=== PATIENT | female | born 1935 | race Caucasian/White ===

== ENCOUNTER 2017-07-13 10:15 | Inpatient (IN) | payer MEDICARE ==
[~2017-07-13] VITALS: Ht 157.5 cm; Wt 68.0 kg
--- NOTE | ~2017-07-13 | PN ---
PATIENT:ESTELA DODD MEDICAL RECORD: [id number] LOCATION:[facility] ADMISSION DATE: 07/13/17 PROGRESS NOTE DATE OF SERVICE: 07/24/2017 SUBJECTIVE: No new complaint. OBJECTIVE: The patient has been more agitated and combative in the last 24 hours. Her combativeness has been mild in comparison to her admission status, but nonetheless does represent moderate change. PHYSICAL EXAMINATION: On exam, mood is rather irritable. Affect is brittle. Speech will very terse. Content of thought is negative for overt psychosis. Sensorium shows no change. ASSESSMENT: No change in diagnosis. PLAN: 1. We will change Risperdal to 1.5 mg at bedtime. 2. Maintain other medications. 3. Continue supportive therapy. TRANSINT:[id number] Voice Confirmation ID: [id number] DOCUMENT ID: [id number] VINCE HARMON III, MD at 0800 CC: [id number] DICTATION DATE: 07/24/17 1106 REGISTERED MIDWIFE: 07/24/17 1116 ADM IN [place] [address] [place] [address]
--- NOTE | ~2017-07-13 | PN ---
PATIENT:ESTELA DODD MEDICAL RECORD: [id number] LOCATION:[facility] ADMISSION DATE: 07/13/17 PROGRESS NOTE DATE OF SERVICE: 07/18/2017 SUBJECTIVE: No new complaint. OBJECTIVE: The patient is slightly calmer. She was able to be given her Risperdal last night, although she refuses it in the mornings. On exam, mood remains rather irritable. Affect is brittle. Speech tends to be terse. Content of thought continues to show nonspecific paranoid ideation. Sensorium is unchanged. ASSESSMENT: No change in diagnosis. PLAN: 1. Maintain current medications with the exception of changing Risperdal to 1 mg at bedtime only. 2. Continue supportive therapy. TRANSINT:[id number] Voice Confirmation ID: [id number] DOCUMENT ID: [id number] VINCE HARMON III, MD at 1025 CC: [id number] DICTATION DATE: 07/18/17 1134 VETERINARY NURSE: 07/18/17 1230 ADM IN [place] [id number] [place] [id number]
--- NOTE | ~2017-07-13 | PN ---
PATIENT:ESTELA DODD MEDICAL RECORD: [id number] LOCATION:[facility] ADMISSION DATE: 07/13/17 PROGRESS NOTE DATE OF SERVICE: 07/29/2017 SUBJECTIVE: No new complaint. OBJECTIVE: The patient has continued to be somewhat difficult to manage as she is rather oppositional, especially early in the mornings. However, she is taking her medication as prescribed. PHYSICAL EXAMINATION: On exam, mood is irritable. Affect is brittle. Speech is tangential. Content of thought focuses on somatic concerns. Sensorium is unchanged. ASSESSMENT: No change in diagnosis. PLAN: 1. Maintain current medications. 2. Continue supportive therapy. TRANSINT:[id number] Voice Confirmation ID: [id number] DOCUMENT ID: [id number] VINCE HARMON III, MD at 1108 CC: [id number] DICTATION DATE: 07/29/17 1038 TOPOLOGY PROFESSOR: 07/29/17 1056 ADM IN [place] [address] [place] [address]
--- NOTE | ~2017-07-13 | PN ---
PATIENT:ESTELA DODD MEDICAL RECORD: [id number] LOCATION:[facility] ADMISSION DATE: 07/13/17 PROGRESS NOTE DATE OF SERVICE: 08/04/2017 SUBJECTIVE: The patient's case was discussed with staff. She has no new complaint. OBJECTIVE: The patient denies intent to harm herself or others. She is impaired cognitively, but in good behavioral control. ASSESSMENT: No change in diagnoses. PLAN: Supportive and educational interventions were made. Long-term prognosis is guarded. I would anticipate the patient can be transitioned out of the hospital soon if this level of improvement is maintained. TRANSINT:[id number] Voice Confirmation ID: [id number] DOCUMENT ID: [id number] FELICIA JOE MD at 0944 CC: [id number] DICTATION DATE: 08/04/17 1207 DROP HAMMER MECHANIC: 08/04/17 1218 DIS IN 08/04/17 [place] [id number] [place] [address]
--- NOTE | ~2017-07-13 | PN ---
PATIENT:ESTELA DODD MEDICAL RECORD: [id number] LOCATION:[facility] ADMISSION DATE: 07/13/17 PROGRESS NOTE DATE OF SERVICE: 07/27/2017 SUBJECTIVE: No new complaint. OBJECTIVE: The patient continues to be rather cantankerous and difficult to redirect sometimes. Aside from this, no significant change. On exam, mood is somewhat irritable. Affect is brittle. Speech is tangential. Content of thought is negative for overt psychosis. Sensorium unchanged. ASSESSMENT: No change in diagnoses. PLAN: 1. Continue current medications. 2. Continue supportive therapy. TRANSINT:[id number] Voice Confirmation ID: [id number] DOCUMENT ID: [id number] VINCE HARMON III, MD at 1201 CC: [id number] DICTATION DATE: 07/27/17 1136 COPYRIGHT CLERK: 07/27/17 1320 ADM IN [place] [id number] [place] [id number]
--- NOTE | ~2017-07-13 | PN ---
PATIENT:ESTELA DODD MEDICAL RECORD: [id number] LOCATION:[facility] ADMISSION DATE: 07/13/17 PROGRESS NOTE DATE OF SERVICE: 07/25/2017 SUBJECTIVE: No new complaint. OBJECTIVE: The patient became extremely agitated last night and required p.r.n. Ativan. She is drowsy this morning. Risperdal had been increased to 1-1/2 mg at bedtime last night, but the patient nonetheless was quite agitated. On exam today, mood is euthymic. Affect is constricted. Speech is minimal. Content of thought shows nonspecific paranoid ideation. Sensorium shows no change. ASSESSMENT: No change in diagnosis. PLAN: 1. For the time being, we will continue current medication regimen. 2. Continue supportive therapy. TRANSINT:[id number] Voice Confirmation ID: [id number] DOCUMENT ID: [id number] VINCE HARMON III, MD at 0800 CC: [id number] DICTATION DATE: 07/25/17 1011 HEAVY EQUIPMENT OPERATOR/PAVER: 07/25/17 1045 ADM IN [place] [address] [place] [address]
--- NOTE | ~2017-07-13 | PN ---
PATIENT:ESTELA DODD MEDICAL RECORD: [id number] LOCATION:[facility] ADMISSION DATE: 07/13/17 PROGRESS NOTE DATE OF SERVICE: 07/19/2017 SUBJECTIVE: No new complaint. OBJECTIVE: The patient did take her Risperdal last night. She took her morning medications as well. She is more compliant and overall calmer. On exam, mood for the most part is euthymic. Affect is reserved. Speech is rather terse. Content of thought focuses on somatic complaints. Sensorium shows no change. ASSESSMENT: No change in diagnosis. PLAN: 1. Continue current medications. 2. Continue supportive therapy. TRANSINT:[id number] Voice Confirmation ID: [id number] DOCUMENT ID: [id number] VINCE HARMON III, MD at 1029 CC: [id number] DICTATION DATE: 07/19/17 1043 MARKETING AUTOMATION MANAGER: 07/19/17 1255 ADM IN [place] [id number] [place] [id number]
--- NOTE | ~2017-07-13 | PN ---
PATIENT:ESTELA DODD MEDICAL RECORD: [id number] LOCATION:[facility] ADMISSION DATE: 07/13/17 PROGRESS NOTE DATE OF SERVICE: 07/20/2017 SUBJECTIVE: No new complaint. OBJECTIVE: The patient is continuing to improve gradually. No further outbursts of agitation. She is variably cooperative in terms of taking medication. On exam, mood euthymic. Affect constricted. Speech quite terse. Content of thought focuses only on somatic concerns. Sensorium shows no change. ASSESSMENT: No change in diagnosis. PLAN: 1. Continue present medications. 2. Continue supportive therapy. TRANSINT:[id number] Voice Confirmation ID: [id number] DOCUMENT ID: [id number] VINCE HARMON III, MD at 0800 CC: [id number] DICTATION DATE: 07/20/17 1052 RAIL GANG SUPERVISOR: 07/20/17 1149 ADM IN [facility] [address] [place] [address]
--- NOTE | ~2017-07-13 | PN ---
PATIENT:ESTELA DODD MEDICAL RECORD: [id number] LOCATION:[facility] ADMISSION DATE: 07/13/17 PROGRESS NOTE DATE OF SERVICE: 07/31/2017 SUBJECTIVE: No new complaint. OBJECTIVE: The patient continues to have episodes of agitation and yelling at night. During the day; however, her behavior has been overall better. She tends to isolate herself from the rest of the people in the group, but is fairly cooperative otherwise. On exam, mood is irritable. Affect is brittle. Speech very terse. Content of thought is negative for overt psychosis. Sensorium is unchanged. ASSESSMENT: No change in diagnosis. PLAN: 1. We will change Risperdal 1 mg at 1800. 2. Continue other current medications. 3. Continue supportive therapy. TRANSINT:[id number] Voice Confirmation ID: [id number] DOCUMENT ID: [id number] VINCE HARMON III, MD at 1019 CC: [id number] DICTATION DATE: 07/31/17 1146 PREP PERSON: 07/31/17 [address] [facility] [address] [place] [id number]
--- NOTE | ~2017-07-13 | PN ---
PATIENT:ESTELA DODD MEDICAL RECORD: [id number] LOCATION:[facility] ADMISSION DATE: 07/13/17 PROGRESS NOTE DATE OF SERVICE: 07/26/2017 SUBJECTIVE: No new complaint. OBJECTIVE: The patient has continued to be sleepy. She did not require p.r.n. yesterday. On exam, mood is euthymic. Affect very constricted. Speech is quite terse. Content of thought focuses only on somatic concerns. Sensorium is unchanged. ASSESSMENT: No change in diagnosis. PLAN: 1. We will reduce h.s. Risperdal to 0.5 mg. 2. Continue other medications and supportive therapy. TRANSINT:[id number] Voice Confirmation ID: [id number] DOCUMENT ID: [id number] VINCE HARMON III, MD at 0504 CC: [id number] DICTATION DATE: 07/26/17 0830 TROLLEY OPERATOR: 07/26/17 1314 ADM IN [place] [address] [place] [address]
--- NOTE | ~2017-07-13 | PN ---
PATIENT:ESTELA DODD MEDICAL RECORD: [id number] LOCATION:[facility] ADMISSION DATE: 07/13/17 PROGRESS NOTE DATE OF SERVICE: 07/23/2017 SUBJECTIVE: The patient's case was discussed with staff. She has no new complaint. OBJECTIVE: The patient is severely impaired cognitively, but has not been aggressive. She is sleeping well. She is not eating very well. Her prognosis is guarded. TRANSINT:[id number] Voice Confirmation ID: [id number] DOCUMENT ID: [id number] FELICIA JOE MD at 1412 CC: [id number] DICTATION DATE: 07/23/17 1057 FOOD AND BEVERAGE INTERN: 07/23/17 1335 ADM IN [place] [address] [place] [address]
--- NOTE | ~2017-07-13 | PN ---
PATIENT:ESTELA DODD MEDICAL RECORD: [id number] LOCATION:[facility] ADMISSION DATE: 07/13/17 PROGRESS NOTE DATE OF SERVICE: 07/21/2017 SUBJECTIVE: The patient's case was discussed with staff. She has no new complaint. OBJECTIVE: The patient is in good behavioral control with limited insight about her condition. She does tolerate her medications well. ASSESSMENT: No change in diagnoses. PLAN: Brief supportive and educational interventions were made. Halfway prognosis is guarded. TRANSINT:[id number] Voice Confirmation ID: [id number] DOCUMENT ID: [id number] FELICIA JOE MD at 1034 CC: [id number] DICTATION DATE: 07/21/17 1231 TRIM CARPENTER: 07/21/17 1239 ADM IN [place] [id number]
--- NOTE | ~2017-07-13 | PN ---
PATIENT:ESTELA DODD MEDICAL RECORD: [id number] LOCATION:[facility] ADMISSION DATE: 07/13/17 PROGRESS NOTE DATE OF SERVICE: 07/17/2017 SUBJECTIVE: No new complaint. OBJECTIVE: The patient continues to be noncompliant. She refuses most medication. She tends to be exit seeking. On exam, mood is irritable. Affect is brittle. Speech is quite terse. Content of thought focuses only on somatic concerns. Sensorium shows no change. ASSESSMENT: No change in diagnosis. PLAN: 1. Continue present medications. 2. Continue supportive therapy. TRANSINT:[id number] Voice Confirmation ID: [id number] DOCUMENT ID: [id number] VINCE HARMON III, MD at 1049 CC: [id number] DICTATION DATE: 07/17/17 1106 CLINICAL SERVICES DIRECTOR: 07/17/17 1207 ADM IN [place] [id number] [place] [id number]
--- NOTE | ~2017-07-13 | PN ---
PATIENT:ESTELA DODD MEDICAL RECORD: [id number] LOCATION:[facility] ADMISSION DATE: 07/13/17 PROGRESS NOTE DATE OF SERVICE: 07/28/2017 SUBJECTIVE: No new complaint. OBJECTIVE: Staff report the patient has not been aggressive. Over the last 24 hours, she is taking her medications as prescribed. She has a baseline irritability that seems to be consistent with her personality. On exam, mood is euthymic. Affect is very constricted. Speech is quite terse. Content of thought is negative for overt psychosis. Sensorium shows no change. ASSESSMENT: No change in diagnosis. PLAN: 1. Continue all current medications. 2. Continue supportive therapy. TRANSINT:[id number] Voice Confirmation ID: [id number] DOCUMENT ID: [id number] VINCE HARMON III, MD at 2107 CC: [id number] DICTATION DATE: 07/28/17 1156 SECURITY SYSTEM TECHNICIAN: 07/28/17 1247 ADM IN [place] [address] [place] [id number]
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
--- NOTE | ~2017-07-13 | PN ---
PATIENT:ESTELA DODD MEDICAL RECORD: [id number] LOCATION:[facility] ADMISSION DATE: 07/13/17 PROGRESS NOTE DATE OF SERVICE: 08/01/2017 SUBJECTIVE: No new verbal complaint. OBJECTIVE: The patient did receive her Risperdal early yesterday as ordered. She was compliant in taking medication, but still was rather restless at night; however, she did not require p.r.n. On exam, mood is slightly irritable. Affect is brittle. Speech is terse. Content of thought focuses on somatic complaints. Sensorium does not show change. ASSESSMENT: No change in diagnosis. PLAN: 1. Maintain current medications. 2. Continue supportive therapy. TRANSINT:[id number] Voice Confirmation ID: [id number] DOCUMENT ID: [id number] VINCE HARMON III, MD at 1011 CC: [id number] DICTATION DATE: 08/01/17 1041 REAL ESTATE PROCESSOR: 08/01/17 1130 ADM IN [place] [id number] [place] [address]
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
--- NOTE | ~2017-07-13 | PN ---
PATIENT:ESTELA DODD MEDICAL RECORD: [id number] LOCATION:[facility] ADMISSION DATE: 07/13/17 PROGRESS NOTE DATE OF SERVICE: 07/22/2017 SUBJECTIVE: The patient's case was discussed with staff. She has no new complaint. OBJECTIVE: The patient is in good behavioral control. She has been verbally and physically aggressive in the past, but not today. ASSESSMENT: No change in diagnoses. PLAN: The patient on the whole has shown significant improvement. I think her long-term prognosis is guarded. If this level of improvement can be maintained, I would anticipate she could be transitioned out of the hospital soon. TRANSINT:[id number] Voice Confirmation ID: [id number] DOCUMENT ID: [id number] FELICIA JOE MD at 1928 CC: [id number] DICTATION DATE: 07/22/17 1041 DOOR TO DOOR FUNDRAISING COLLECTOR: 07/22/17 1140 ADM IN [place] [address] [place] [address]
--- NOTE | ~2017-07-13 | PN ---
PATIENT:ESTELA DODD MEDICAL RECORD: [id number] LOCATION:[facility] ADMISSION DATE: 07/13/17 PROGRESS NOTE DATE OF SERVICE: 08/02/2017 SUBJECTIVE: No new complaint noted. OBJECTIVE: The patient is withdrawn, but cooperative. She is taking her medication as prescribed. She is somewhat resistant to some activities of daily living, but overall shows good improvement. On exam, mood is euthymic. Affect very constricted. Speech is terse. Content of thought focuses only on somatic concerns. Sensorium shows no change. ASSESSMENT: No change in diagnosis. PLAN: 1. Continue current medications. 2. Continue supportive therapy. TRANSINT:[id number] Voice Confirmation ID: [id number] DOCUMENT ID: [id number] VINCE HARMON III, MD at 1101 CC: [id number] DICTATION DATE: 08/02/17 1059 ASSEMBLY DEPARTMENT SUPERVISOR: 08/02/17 1146 ADM IN [place] [address] [place] [address]
[~2017-07-13 10:15] MED LIST: ESTRACE 0.5 MG0.5 MG PO; HYDROCODONE-APA1 TAB PO; KEFLEX500 MG PO; LASIX20 MG PO; MULTI-DAY VITAM1 TAB PO; PRAVACHOL40 MG PO; PRINIVIL20 MG PO; SYNTHROID112 MCG PO; ZANAFLEX4 MG PO; ZESTORETIC 20/21 TAB PO; ZOLOFT50 MG PO
[2017-07-13] MEDS ORDERED: ARICEPT10 MG PO (13:28)
[2017-07-13] MEDS ORDERED: NORVASC10 MG PO (13:29)
[2017-07-13] MEDS ORDERED: GLUCOSAMINE & C1 CAP PO (13:31)
[2017-07-13] MEDS ORDERED: NATURAL SENNA8.6 MG PO (16:44)
[2017-07-13] MEDS ORDERED: CALCIUM 500 + D1 TAB PO (16:46)
[2017-07-13] MEDS ORDERED: ATARAX 25 MG TA25 MG PO (16:48)
[2017-07-13] MEDS ORDERED: ATIVAN0.5 MG PO (16:49)
[2017-07-13] MEDS ORDERED: LAC-HYDRIN 5226 ML TOPICAL (16:51)
[2017-07-13 18:28] VITALS: BP 123/71; BMI 25.8
[2017-07-13 19:37] VITALS: BP 116/75
[2017-07-14 01:37] VITALS: BMI 25.8
[2017-07-14 06:26] LABS: HEMATOCRIT 36.4 % (36.0-48.0); HEMOGLOBIN 11.7 g/dL (12-16); MCH 27.1 pg (26.0-34.0); MCHC 32.1 g/dL (31.0-37.0); MCV 84.3 fL (80.0-100.0); MEAN PLATELET VOLUME 8.3 fL (7.4-10.4); PLATELET COUNT 251 10x3/uL (130-400); RBC 4.32 10x6/uL (4.00-5.40); WBC 3.9 10x3/uL (4.8-10.8)
[2017-07-14 06:31] LABS: HEMOGLOBIN A1C 6.1 % (4.8-6.0)
[2017-07-14 06:55] LABS: ALBUMIN 2.8 g/dL (3.4-5.0); ANION GAP 9.3 mmol/L (8-16); BILIRUBIN - TOTAL 0.2 mg/dL (0.2-1.3); CALCIUM 8.7 mg/dL (8.5-10.1); CARBON DIOXIDE 30.5 mmol/L (21.0-32.0); CHOL - HDL RATIO 2.8 ratio (2.3-4.1); CREATININE - SERUM 0.8 mg/dL (0.6-1.3); LDL-HDL RATIO 1.5 ratio (1.5-3.5); POTASSIUM - SERUM 3.8 mmol/L (3.5-5.1); PROTEIN - SERUM 6.8 g/dL (6.4-8.2); THYROID STIMULATING HORMONE 2.9 uIU/mL (0.36-3.74)
[2017-07-14 07:05] LABS: BASOPHILS 1 % (0-2); LYMPHOCYTES 72 % (15-50); MONOCYTES 7 % (2-11); NEUTROPHILS 20 % (40-80); PLATELET ESTIMATE NORMAL
[2017-07-14 09:44] VITALS: BP 161/80
[2017-07-14 12:47] VITALS: Ht 157.5 cm; Wt 68.0 kg
[2017-07-14 19:30] VITALS: BP 131/79
[2017-07-15 05:13] LABS: RAPID PLASMA REAGIN Non Reactive (Non Reactive)
[2017-07-15 07:00] VITALS: BP 136/70
[2017-07-15 14:21] LABS: FOLATE (FOLIC ACID) - SERUM 5.6 ng/mL (>3.0)
[2017-07-15 19:30] VITALS: BP 110/86
[2017-07-16 07:00] VITALS: BP 122/63
[2017-07-16 08:11] LABS: APPEARANCE CLEAR (CLEAR); BILIRUBIN NEGATIVE (NEGATIVE); COLOR YELLOW (YELLOW); GLUCOSE NEGATIVE (NEGATIVE); KETONE NEGATIVE (NEGATIVE); NITRITE NEGATIVE (NEGATIVE); PROTEIN NEGATIVE (NEGATIVE); SPECIFIC GRAVITY 1.015 (1.005-1.020); UROBILINOGEN NORMAL (NORMAL)
[2017-07-16 19:30] VITALS: BP 111/89
[2017-07-17 06:07] LABS: VITAMIN D 25 HYDROXY 45.8 ng/mL (30.0-100.0)
[2017-07-17 07:00] VITALS: BP 142/83
[2017-07-17 19:34] VITALS: BP 126/83
[2017-07-18 07:00] VITALS: BP 128/77
[2017-07-18 20:10] VITALS: BP 149/68
[2017-07-19 09:36] VITALS: BP 122/50
[2017-07-19 19:19] VITALS: BP 119/70; BP 135/42; BP 19/70
[2017-07-20 08:11] VITALS: BP 117/65
[2017-07-20 19:30] VITALS: BP 129/78
[2017-07-21 11:12] VITALS: BP 120/58
[2017-07-21 19:54] VITALS: BP 121/71
[2017-07-22 11:52] VITALS: BP 122/76
[2017-07-22 20:27] VITALS: BP 146/75
[2017-07-23 07:00] VITALS: BP 128/72
[2017-07-23 20:07] VITALS: BP 114/52
[2017-07-24 07:00] VITALS: BP 106/47
[2017-07-24 19:30] VITALS: BP 114/65
[2017-07-25 07:00] VITALS: BP 128/68
[2017-07-26 10:30] VITALS: BP 109/65
[2017-07-26 19:30] VITALS: BP 142/73
[2017-07-27 09:47] VITALS: BP 120/76
[2017-07-27 12:37] VITALS: BP 120/76
[2017-07-27 19:59] VITALS: BP 120/76
[2017-07-28 08:30] VITALS: BP 124/062
[2017-07-29 07:00] VITALS: BP 131/63
[2017-07-29 22:30] VITALS: BP 122/70
[2017-07-30 08:18] VITALS: BP 130/072
[2017-07-30 19:30] VITALS: BP 126/78
[2017-07-31 08:00] VITALS: BP 135/073
[2017-07-31 20:29] VITALS: BP 142/72
[2017-08-01 07:57] VITALS: BP 124/49
[2017-08-01 20:59] VITALS: BP 141/65
[2017-08-02 09:44] VITALS: BP 122/68
[2017-08-02] MEDS ORDERED: RISPERDAL SOL1 MG/ML PO (10:48)
[2017-08-02] MEDS ORDERED: VITAMIN B-121000 MCG PO (10:49)
[2017-08-02 19:30] VITALS: BP 135/73
[2017-08-03 08:00] VITALS: BP 127/71
[2017-08-03 21:29] VITALS: BP 150/82
[2017-08-04 09:31] VITALS: BP 127/62
== END 2017-08-04 11:29 | DRG 57 ==
LOC: D.PSYCH 10:15
PROVIDERS: Family Medicine; Psychiatry & Neurology Psychiatry
DX: G30.9 Alzheimer's disease, unspecified (principal); F02.81 Dementia in other diseases classified elsewhere, unspecified severity, with behavioral disturbance; E78.00 Pure hypercholesterolemia, unspecified; E03.9 Hypothyroidism, unspecified; I10 Essential (primary) hypertension; D64.9 Anemia, unspecified; M81.0 Age-related osteoporosis without current pathological fracture; E78.5 Hyperlipidemia, unspecified; Z87.891 Personal history of nicotine dependence; K58.1 Irritable bowel syndrome with constipation; I73.00 Raynaud's syndrome without gangrene; M19.90 Unspecified osteoarthritis, unspecified site; E53.8 Deficiency of other specified B group vitamins

== ENCOUNTER 2017-11-03 20:43 | Inpatient (IN) | payer MEDICARE ==
[~2017-11-03] VITALS: Ht 165.1 cm; Wt 60.8 kg
--- NOTE | ~2017-11-03 | EC ---
PATIENT:ESTELA DODD DATE OF SERVICE: 11/04/17 SEX: F MEDICAL RECORD: [id number] DATE OF : 37 LOCATION:D.M2 D.210 AGE OF PATIENT: 82 ADMISSION DATE: 11/04/17 REFERRING PHYSICIAN: INTERPRETING PHYSICIAN: SAEED GREER MD ECHOCARDIOGRAM REPORT ECHO CHARGES 4 ECHO COMPLETE Date: CLINICAL DIAGNOSIS: ELEVATED TROPONIN/ABNORMAL EKG ECHOCARDIOGRAPHIC MEASUREMENTS (adult normal given) AC root (d.<3.7cm) 3.2 cm LV Septum d (<1.2 cm> 1.3 cm Valve Excursion 1.9 cm LV Septum (systole) 1.9 cm Left Atria (s.<4.0cm> 2.9 cm LVPW d(<1.2cm) 1.4 cm RV (d.<2.3cm) 2.0 cm LVPW (sytole) 1.9 cm LV diastole(<5.6CM) 3.3 cm MV E-F(>70mm/sec) cm LV systole 1.4 cm LVOT Diameter 1.6 cm MV exc.(>10mm) cm Est.ejection fraction (50-75%) % DOPPLER: LVIT cm/sec A 170 cm/sec E 113 cm/sec LA cm/sec RVSP 47.0 mmHg LVOT 107 cm/sec AOP1/2T m/s Asc. Ao 147 cm/sec RVOT 75.0 cm/sec RA cm/sec PA 89.0 cm/sec AV Gradient Peak 8.6 mmHg AV Mean 3.7 mmHg AV Area 1.7 cm MV Gradient Peak 9.0 mmHg MV Mean 3.5 mmHg MV Area cm COMMENTS: Release And Technical Records Clerk: Emma PIZARROOE Cage Manager: Asad Greer TAPE# PACS Pericardial Effusion N DATE OF SERVICE: 11/05/2017 PROCEDURE: Transthoracic echocardiogram. FINDINGS: 1. Left ventricle is hyperdynamic. Does have some asynchronous wall motion due to bundle branch block, but the overall ejection fraction is 65%. There is no distinct wall motion abnormalities; however, the septum is flattened and D-shaped consistent with some mild pressure overload in the right side. 2. The mitral valve is grossly normal. ECHOCARDIOGRAM REPORT [id number] ESTELA DODD 3. The left atrium is normal size and function. 4. The aortic valve is mildly thickened but otherwise normal. 5. The tricuspid valve has moderate tricuspid regurgitation, RVSP of 50 mmHg, moderate pulmonary hypertension. 6. The right ventricle is shown to be dilated, mildly hypokinetic. 7. The right atrium is mildly dilated. 8. The pulmonic valve has trace pulmonic insufficiency. CONCLUSION: The patient does have evidence of mild left ventricular hypertrophy, but also she has moderate pulmonary hypertension and what appears to be right-sided dilatation of the right ventricle. In this situation, it is possible she has chronic right-sided pressure overload, but also the potential of acute right-sided overload in the face of a pulmonary embolism should be considered. TRANSINT:[id number] Voice Confirmation ID: [id number] DOCUMENT ID: [id number] 11/09/2017 Edited to correct date of service, dm. SAEED GREER MD at 1426 CC: [id number] DICTATION DATE: 11/06/17 0719 WEB GRAPHIC DESIGNER: 11/06/17 1042 DIS IN 11/09/17 [place] [id number] [place] [address]
--- NOTE | ~2017-11-03 | HEMODYNAMI ---
PATIENT:ESTELA DODD MEDICAL RECORD: [id number] : 37 LOCATION:[facility] D.2102 ADMISSION DATE: 11/04/17 Generatedon:11/08/201712:25 Patient name: ESTELA DODD Patient #: [id number] SSN: : 1935 Date of study: 11/08/2017 Page: Of Hemodynamic Procedure Report Patient Data Patient Demographics Procedure consent was obtained First Name: ESTELA Gender: Female Last Name: JU : 1935 [facility] Initial: R Age: 82 year(s) Patient #: [id number] Race: Unknown Additional ID: [id number] Contact details Address: [address] [place] [address] State: [place] City: [facility] Zip code: [address] Admission Admission Data Admission Date: 11/04/2017 Admission Time: 0:44 Room #: 2102 Weight (lbs.): 122 Weight (kg.): 55.34 Procedure Procedure Types Cath Procedure Peripheral Cath Diagnostic Procedure Cath Peripheral Venography IVC/SVC Inferior Venacava Filter Procedure Description Procedure Date Procedure Date: 11/08/2017 Procedure Start Time: 11:55 Procedure Staff Name Function Luis Antonio Bradley MD Performing Physician Effie Cook RT Special Duty Nurse Effie Cook RT Monitor Domi Morfin RN Nurse Shama Villegas RN Nurse Juma Liu RT Scrub Procedure Data Cath Procedure Fluoroscopy Diagnostic fluoroscopy Total fluoroscopy Time: 3.3 time: 3.3 min min Diagnostic fluoroscopy Total fluoroscopy dose: 116 dose: 116 mGy mGy Contrast Material Contrast Material Type Amount (ml) Isovue 300 25 Diagnostic catheters Device Type Used For End Catheter Placement Merit Impress KA2 5Fr 65CM catheter ([id number]) Procedure Medications Medication Administration Route Dosage Lidocaine 1% added to field 20 Heparin Flush Bag 2 bags (1000units/500ml NS) Oxygen NC 3 l/min Solumedrol I.V. 125 mg Hemodynamics Rest Heart Rate: 79 (bpm) Snapshots Pre Cath Intra NCS Post Cath Vital Signs Time Heart Resp SPO2 etCO2 NIBP Rhythm Pain Sedation Rate (ipm) (%) (mmHg) (mmHg) Status Level (bpm) 11:32:25 26 98 19.4 135/68(95) NSR 0 (11) 10(A) , No pain 11:37:42 78 28 98 11.2 82/29(37) NSR 0 (11) 10(A) , No pain 11:42:04 79 21 99 13.4 98/37(68) NSR 0 (11) 10(A) , No pain 11:46:14 69 16 100 26.9 94/50(77) NSR 0 (11) 10(A) , No pain 11:50:24 67 14 99 20 90/45(65) NSR 0 (11) 10(A) , No pain 11:54:32 65 15 99 20 85/44(62) NSR 0 (11) 8(A) , No pain 11:58:36 65 15 100 16.4 91/48(72) NSR 0 (11) 8(A) , No pain 12:02:44 63 15 100 15.5 91/43(68) NSR 0 (11) 8(A) , No pain 12:06:51 65 15 99 21.7 89/43(64) NSR 0 (11) 8(A) , No pain 12:10:57 65 15 99 13 84/45(68) NSR 0 (11) 8(A) , No pain 12:15:01 64 14 98 0.7 93/47(66) NSR 0 (11) 8(A) , No pain 12:19:05 68 16 99 0 103/53(77) NSR 0 (11) 8(A) , No pain 12:23:04 0 No Cuff NSR 0 (11) 8(A) , No pain Medications Time Medication Route Dose Verified Delivered Reason Notes Effe ctiveness by by 11:38:38 Lidocaine 1% added 20ml Shama Luis Antonio for local to vial Bakari Bradley anesthetic field SAMRA GAMING 11:39:00 Heparin Flush 2 Shama Luis Antonio used for Bag bags Bakari Bradley procedure (1000units/500ml RN NS) 11:39:15 Oxygen NC 3 Shama Shama used for l/min Bakari Villegas RN boom pump operator 11:48:44 Solumedrol I.V. 125 Luis Antonio Sesay mg Mirna Villegas RN MD Procedure Log Time Note 11:12:46 Patient Weight : 122 lbs 11:14:10 Use device set IR Diagnostic 11:18:47 Time tracking: Regular hours 11:31:37 Plan of Care:Hemodynamics will remain stable., Cardiac rhythm will remain stable., Comfort level will be maintained., Respiratory function will remain adequate., Patient/ family verbilizes understanding of procedure., Procedure tolerated without complication., Recovers from procedure without complications.. 11:31:50 Patient received from Med II to IR Alert and oriented. Tansferred to table in Supine position. 11:32:10 Correct patient and procedure confirmed by team. 11:32:14 Signed procedure consent form obtained from verbally. 11:34:48 FILTER Tech LP Vena Cava ([id number]) opened to sterile field. 11:34:48 DOC .035 wire (C27659) opened to sterile field. 11:34:49 Micropuncture VSI 4FR kit opened to sterile field. 11:34:50 TUBING Contrast Injection High Pressure (BCQ411W) opened to sterile field. 11:34:51 TUBING Contrast Injection High Pressure (RWH019X) opened to sterile field. 11:34:52 Sterile Angiographic Pack opened to sterile field. 11:34:53 Bag Decanter (2002S) opened to sterile field. 11:34:55 ACIST Manifold (78983) opened to sterile field. 11:34:58 ACIST Hand Control (50623) opened to sterile field. 11:34:59 ACIST Syringe (56109) opened to sterile field. 11:36:01 see anesthesia notes for monitoring of patient during procedure 11:36:20 - 11:36:36 ECG and BP/O2 sat monitors applied to patient. 11:36:38 Vital chart was started 11:36:41 Baseline sample Acquired. 11:36:43 Full Disclosure recording started 11:36:44 - 11:36:51 H&P Date Dictated: 11/08/2017 Within 30 days and on chart.. 11:36:56 Pre-procedure instructions explained to patient. 11:36:57 Pre-op teaching completed and patient verbalized understanding. 11:37:02 Family unavailable. 11:37:06 Patient NPO since Midnight. 11:37:21 Is the patient allergic to Iodine/contrast media? No. 11:37:24 - 11:37:31 - 11:37:47 IV patent on arrival in right antecubital with D5/.45%NaCl at KVO. 11:38:11 Right neck area was prepped with chlora-prep and draped in sterile fashion 11:38:16 - 11:38:38 Lidocaine 1% 20ml vial added to field was administered by Luis Antonio tellez MD; for local anesthetic; 11:39:00 Heparin Flush Bag (1000units/500ml NS) 2 bags was administered by Luis Antonio Bradley MD; used for procedure; 11:39:15 Oxygen 3 l/min NC was administered by Shama Villegas RN; used for procedure; 11:48:44 Solumedrol 125 mg I.V. was administered by Shama Villegas RN; ; 11:54:51 Physician arrived 11:55:01 --------ALL STOP TIME OUT------ 11:55:03 Final Timeout: patient, procedure, and site verified with staff and physician. All members of the team are in agreement. 11:55:10 Sedation plan: TIVA Medication:Propofol 11:55:48 Procedure started. 11:55:56 Local anesthetic to right IJ vein with Lidocaine 1% by Luis Antonio Bradley MD.INITIAL ACCESS ONLY 12:02:53 Xerion Advanced Battery 145cm wire ([id number]) opened to sterile field. 12:03:58 A NextGreatPlace KA2 5Fr 65CM catheter ([id number]) was advanced over the wire and used for . 12:11:35 Venous access obtained using ultrasound guidance. 12:11:45 Vena Tech LP IVC filter was placed below renal veins. 12:11:51 Procedure ended.(Physican Out) 12:12:23 Fluoroscopy time 03.30 minutes. 12:12:29 Fluoroscopy dose: 116 mGy 12:12:29 Flurop Dose total: 116 12:12:36 Contrast amount:Isovue 300 25ml. 12:12:54 Procedure and supply charges have been captured, reviewed, submitted an d are correct. 12:23:44 Insertion/operative site no bleeding no hematoma. 12:23:50 Post right IJ vein:stable 12:24:18 see anesthesia note post tiva 12:24:26 Report given to Med II. 12:24:32 Patient transfered to Med II with Stretcher. 12:25:03 Vital chart was stopped Device Usage Item Name Manufacture Quantity Catalog Hospital Part Current Minima l Lot# / Number Charge Number Stock Stock Serial# Code FILTER Tech B. Yu 1 [id number] [id number] 216087 359793 5 LP Vena Cava ([id number]) DOC .035 wire Zazengo Medical 1 [id number] 022538 786609 5 [id number] ([id number]) Micropuncture VSI VASCULAR 1 7266V 455308 374696 5 VSI 4FR kit SOLUTIONS TUBING [facility] 2 [id number] 613103 831255 226837 5 Contrast Medical Injection High Pressure ([id number]) Sterile Cardinal 1 [id number] 740827 751654 5 Angiographic Health Pack Bag Decanter Microtek 1 2001S 467135 35320 193579 5 (2001S) Medical Inc. ACIST Acist 1 45169 587543 939964 367623 5 Manifold Medical (78569) Systems Inc ACIST Hand Acist 1 08860 848939 378046 700092 5 Control Medical (30242) Systems Inc ACIST Syringe Acist 1 93939 934522 255182 009188 20 (47093) Medical Systems Inc BENTSON 145cm Cook Medical 1 [id number] 602014 844881 5 8999918 wire ([id number]) Merit Impress Merit 1 49045QN9 820593 267715 5 KA2 5Fr 65CM Medical catheter (00017DY5) Signature Audit [place] Stage Time Signature Unsigned Intra-Procedure 11/08/2017 Juma 12:24:59 PM Shuffield RT (R) (CV) Signatures Monitor : Effie Cook RT Signature : Date : Time : [address] [address]
[~2017-11-03 20:43] MED LIST changes: +ARICEPT10 MG PO; +ATARAX 25 MG TA25 MG PO; +ATIVAN0.5 MG PO; +CALCIUM 500 + D1 TAB PO; +GLUCOSAMINE & C1 CAP PO; +LAC-HYDRIN 5226 ML TOPICAL; +NATURAL SENNA8.6 MG PO; +NORVASC10 MG PO; +RISPERDAL SOL1 MG/ML PO; +VITAMIN B-121000 MCG PO
[2017-11-03 22:07] LABS: BASOPHILS 0.1 % (0-2); EOSINOPHILS 0 % (0-7); HEMATOCRIT 34.4 % (36.0-48.0); IMMATURE GRANULOCYTES 0.4 % (0-5); MCH 26.4 pg (26.0-34.0); MCV 82.5 fL (80.0-100.0); MEAN PLATELET VOLUME 8.7 fL (7.4-10.4); MONOCYTES 7.7 % (2-11); NEUTROPHILS 76.8 % (40-80); PLATELET COUNT 319 10x3/uL (130-400); RBC 4.17 10x6/uL (4.00-5.40); RDW 15.3 % (11.5-14.5); WBC 19.1 10x3/uL (4.8-10.8)
[2017-11-03 22:22] LABS: ALBUMIN 1.9 g/dL (3.4-5.0); ANION GAP 16.6 mmol/L (8-16); BILIRUBIN - TOTAL 0.46 mg/dL (0.2-1.3); CALCIUM 8.4 mg/dL (8.5-10.1); CARBON DIOXIDE 22.2 mmol/L (21.0-32.0); CREATININE - SERUM 1.4 mg/dL (0.6-1.3); POTASSIUM - SERUM 3.8 mmol/L (3.5-5.1); PROTEIN - SERUM 7.5 g/dL (6.4-8.2)
[2017-11-03 22:37] LABS: MAGNESIUM - SERUM 2.3 mg/dL (1.8-2.4)
[2017-11-03 22:40] LABS: TROPONIN-I 0.673 ng/mL (0.000-0.060)
[2017-11-03 23:43] LABS: APPEARANCE HAZY (CLEAR); BILIRUBIN NEGATIVE (NEGATIVE); COLOR YELLOW (YELLOW); GLUCOSE NEGATIVE (NEGATIVE); KETONE NEGATIVE (NEGATIVE); NITRITE NEGATIVE (NEGATIVE); PROTEIN TRACE mg/dL (NEGATIVE); SPECIFIC GRAVITY 1.015 (1.005-1.020); UROBILINOGEN NORMAL (NORMAL)
[2017-11-03 23:44] LABS: BACTERIA MANY /hpf (NONE SEEN); EPITHELIAL CELLS NSEEN /hpf (0-5); RED CELLS - URINE 0-5 /hpf (0-5); WHITE CELLS - URINE 25-50 /hpf (0-5)
[2017-11-04] MEDS ORDERED: DIFLUCAN100 MG (01:35)
[2017-11-04 03:48] VITALS: BP 108/49; BMI 25.0
[2017-11-04] MEDS ORDERED: KLONOPIN0.5 MG PO (04:25)
[2017-11-04] MEDS ORDERED: NAMENDA5 MG PO (04:27)
[2017-11-04 10:15] VITALS: BP 103/64
[2017-11-04 12:35] VITALS: BP 109/67
[2017-11-04 16:19] VITALS: BP 120/71
[2017-11-04 18:03] LABS: BASOPHILS 0.1 % (0-2); EOSINOPHILS 0.8 % (0-7); HEMATOCRIT 32.3 % (36.0-48.0); HEMOGLOBIN 10.1 g/dL (12-16); IMMATURE GRANULOCYTES 0.3 % (0-5); LYMPHOCYTES 12.5 % (15-50); MCHC 31.3 g/dL (31.0-37.0); MEAN PLATELET VOLUME 8.9 fL (7.4-10.4); MONOCYTES 5.8 % (2-11); NEUTROPHILS 80.5 % (40-80); PLATELET COUNT 268 10x3/uL (130-400); RBC 3.89 10x6/uL (4.00-5.40); RDW 15.4 % (11.5-14.5); WBC 16.9 10x3/uL (4.8-10.8)
[2017-11-04 18:31] LABS: CKMB 1.9 U/L (0.0-3.6)
[2017-11-04 18:33] LABS: TROPONIN-I 0.236 ng/mL (0.000-0.060)
[2017-11-04 18:44] LABS: ANION GAP 14.2 mmol/L (8-16); CALCIUM 8.2 mg/dL (8.5-10.1); CARBON DIOXIDE 24.3 mmol/L (21.0-32.0); POTASSIUM - SERUM 3.5 mmol/L (3.5-5.1)
[2017-11-04 18:47] LABS: CREATININE - SERUM 0.9 mg/dL (0.6-1.3)
[2017-11-04 20:00] VITALS: BP 115/71
[2017-11-05 00:27] LABS: TROPONIN-I 0.208 ng/mL (0.000-0.060)
[2017-11-05 04:00] VITALS: BP 108/68
[2017-11-05 09:09] VITALS: BP 100/67
[2017-11-05 14:53] VITALS: BP 108/63
[2017-11-05 16:39] VITALS: BP 96/44
[2017-11-05 21:11] VITALS: BP 124/48
[2017-11-06 01:35] VITALS: BP 88/46
[2017-11-06 05:33] VITALS: BP 97/51
[2017-11-06 05:47] LABS: ALBUMIN 1.7 g/dL (3.4-5.0); ALKALINE PHOSPHATASE 55 U/L (46-116); ALT (SGPT) 36 U/L (10-68); BILIRUBIN - TOTAL 0.41 mg/dL (0.2-1.3); CARBON DIOXIDE 23.3 mmol/L (21.0-32.0); CHLORIDE - SERUM 109 mmol/L (98-107); GLUCOSE 87 mg/dL (74-106); POTASSIUM - SERUM 3.4 mmol/L (3.5-5.1); PROTEIN - SERUM 5.8 g/dL (6.4-8.2); SODIUM 143 mmol/L (136-145)
[2017-11-06 05:48] LABS: CALC OSMOLALITY 287 mosm/kg (275-300); CREATININE - SERUM 0.6 mg/dL (0.6-1.3); UREA NITROGEN 23 mg/dL (7-18)
[2017-11-06 05:49] LABS: eGFR NON AFRICAN AMERICAN > 90 mL/min (90-120)
[2017-11-06 07:53] VITALS: BP 86/61
[2017-11-06 11:14] VITALS: BP 97/68
[2017-11-06 12:27] VITALS: Ht 165.1 cm; Wt 60.8 kg
[2017-11-06 15:02] VITALS: BP 92/56
[2017-11-06] MEDS ORDERED: REMERON15 MG PO (17:21)
[2017-11-06] MEDS ORDERED: VITAMIN B-121000 MCG PO (17:21)
[2017-11-06] MEDS ORDERED: NORVASC10 MG PO (17:21)
[2017-11-06] MEDS ORDERED: PRAVACHOL40 MG PO (17:22)
[2017-11-06] MEDS ORDERED: KLONOPIN0.5 MG PO (17:23)
[2017-11-06] MEDS ORDERED: ARICEPT10 MG PO (17:23)
[2017-11-06] MEDS ORDERED: HYDROCODONE-APA1 TAB PO (17:23)
[2017-11-06] MEDS ORDERED: SYNTHROID112 MCG PO (17:23)
[2017-11-06 18:34] LABS: BASOPHILS 0.1 % (0-2); EOSINOPHILS 1.9 % (0-7); HEMATOCRIT 29.5 % (36.0-48.0); HEMOGLOBIN 9.3 g/dL (12-16); IMMATURE GRANULOCYTES 0.5 % (0-5); MCH 26.1 pg (26.0-34.0); MCHC 31.5 g/dL (31.0-37.0); MCV 82.9 fL (80.0-100.0); MEAN PLATELET VOLUME 8.8 fL (7.4-10.4); MONOCYTES 5.5 % (2-11); RBC 3.56 10x6/uL (4.00-5.40); RDW 15.6 % (11.5-14.5); WBC 13.9 10x3/uL (4.8-10.8)
[2017-11-06 18:55] LABS: PLATELET COUNT 341 10x3/uL (130-400)
[2017-11-06 21:06] VITALS: BP 112/63
[2017-11-07 04:03] LABS: BASOPHILS 0.2 % (0-2); EOSINOPHILS 2.6 % (0-7); HEMATOCRIT 27.7 % (36.0-48.0); HEMOGLOBIN 8.8 g/dL (12-16); IMMATURE GRANULOCYTES 0.3 % (0-5); LYMPHOCYTES 15.4 % (15-50); MCH 26.1 pg (26.0-34.0); MCHC 31.8 g/dL (31.0-37.0); MCV 82.2 fL (80.0-100.0); MEAN PLATELET VOLUME 8.4 fL (7.4-10.4); MONOCYTES 7.4 % (2-11); NEUTROPHILS 74.1 % (40-80); PLATELET COUNT 362 10x3/uL (130-400); RBC 3.37 10x6/uL (4.00-5.40); RDW 15.7 % (11.5-14.5); WBC 11.8 10x3/uL (4.8-10.8)
[2017-11-07 04:22] LABS: CALC OSMOLALITY 278 mosm/kg (275-300); CALCIUM 7.8 mg/dL (8.5-10.1); CARBON DIOXIDE 21.2 mmol/L (21.0-32.0); CHLORIDE - SERUM 106 mmol/L (98-107); CREATININE - SERUM 0.6 mg/dL (0.6-1.3); GLUCOSE 91 mg/dL (74-106); MAGNESIUM - SERUM 1.6 mg/dL (1.8-2.4); POTASSIUM - SERUM 3.2 mmol/L (3.5-5.1); SODIUM 139 mmol/L (136-145); eGFR NON AFRICAN AMERICAN > 90 mL/min (90-120)
[2017-11-07 04:26] LABS: UREA NITROGEN 14 mg/dL (7-18)
[2017-11-07 05:27] VITALS: BP 99/55
[2017-11-07 08:06] VITALS: BP 112/70
[2017-11-07 10:22] VITALS: BP 119/76
[2017-11-07 15:24] VITALS: BP 122/66
[2017-11-07 22:10] VITALS: BP 117/59
[2017-11-08 06:34] VITALS: BP 103/70
[2017-11-08 10:53] LABS: BASOPHILS 0.2 % (0-2); HEMATOCRIT 29.5 % (36.0-48.0); HEMOGLOBIN 9.2 g/dL (12-16); IMMATURE GRANULOCYTES 0.3 % (0-5); LYMPHOCYTES 13.1 % (15-50); MCH 26.1 pg (26.0-34.0); MCHC 31.2 g/dL (31.0-37.0); MCV 83.6 fL (80.0-100.0); MEAN PLATELET VOLUME 8.5 fL (7.4-10.4); MONOCYTES 6.7 % (2-11); NEUTROPHILS 77.7 % (40-80); RBC 3.53 10x6/uL (4.00-5.40); RDW 16.1 % (11.5-14.5); WBC 11.7 10x3/uL (4.8-10.8)
[2017-11-08 10:54] LABS: PLATELET COUNT 441 10x3/uL (130-400)
[2017-11-08 11:00] LABS: INR 1.43 (0.85-1.17)
[2017-11-08 11:01] LABS: CALC OSMOLALITY 273 mosm/kg (275-300); CALCIUM 7.8 mg/dL (8.5-10.1); CARBON DIOXIDE 20.9 mmol/L (21.0-32.0); CHLORIDE - SERUM 105 mmol/L (98-107); CREATININE - SERUM 0.5 mg/dL (0.6-1.3); GLUCOSE 77 mg/dL (74-106); POTASSIUM - SERUM 3.6 mmol/L (3.5-5.1); SODIUM 138 mmol/L (136-145); UREA NITROGEN 11 mg/dL (7-18); eGFR NON AFRICAN AMERICAN > 90 mL/min (90-120)
[2017-11-08 12:45] VITALS: BP 89/50
[2017-11-08 13:00] VITALS: BP 122/55
[2017-11-08 14:02] VITALS: BP 116/80
[2017-11-08 16:09] VITALS: BP 108/72
[2017-11-08 20:00] VITALS: BP 111/48
[2017-11-09 05:44] LABS: BASOPHILS 0 % (0-2); EOSINOPHILS 0 % (0-7); HEMATOCRIT 31.2 % (36.0-48.0); HEMOGLOBIN 9.8 g/dL (12-16); IMMATURE GRANULOCYTES 0.6 % (0-5); MCHC 31.4 g/dL (31.0-37.0); MCV 82.8 fL (80.0-100.0); MEAN PLATELET VOLUME 8.3 fL (7.4-10.4); MONOCYTES 1.3 % (2-11); NEUTROPHILS 87.1 % (40-80); PLATELET COUNT 468 10x3/uL (130-400); RBC 3.77 10x6/uL (4.00-5.40); RDW 16.1 % (11.5-14.5); WBC 10.6 10x3/uL (4.8-10.8)
[2017-11-09 06:21] LABS: CALCIUM 8.2 mg/dL (8.5-10.1); CARBON DIOXIDE 21.8 mmol/L (21.0-32.0); CHLORIDE - SERUM 106 mmol/L (98-107); MAGNESIUM - SERUM 1.7 mg/dL (1.8-2.4); SODIUM 139 mmol/L (136-145)
[2017-11-09 06:22] LABS: CALC OSMOLALITY 280 mosm/kg (275-300); CREATININE - SERUM 0.7 mg/dL (0.6-1.3); GLUCOSE 131 mg/dL (74-106); POTASSIUM - SERUM 4.4 mmol/L (3.5-5.1); UREA NITROGEN 15 mg/dL (7-18); eGFR NON AFRICAN AMERICAN 85 mL/min (90-120)
[2017-11-09 06:42] VITALS: BP 116/66
[2017-11-09] MEDS ORDERED: BAYER CHEWABLE81 MG PO (09:56)
[2017-11-09] MEDS ORDERED: LOVENOX60 MG/0.6 SC (10:05)
[2017-11-09 10:25] VITALS: BP 122/63
== END 2017-11-09 12:53 | DRG 673 ==
LOC: D.ER 20:43 → D.EDHOLD 11-04 00:44 → D.M2 11-04 00:44
PROVIDERS: Emergency Medicine; Family Medicine; Radiology Diagnostic Radiology
PROC: 06H03DZ Insertion of Intraluminal Device into Inferior Vena Cava, Percutaneous Approach (ICD-10-PCS; principal; 2017-11-08 11:00)
DX: N17.9 Acute kidney failure, unspecified (principal); I26.92 Saddle embolus of pulmonary artery without acute cor pulmonale; E43 Unspecified severe protein-calorie malnutrition; I21.9 Acute myocardial infarction, unspecified; N39.0 Urinary tract infection, site not specified; F02.81 Dementia in other diseases classified elsewhere, unspecified severity, with behavioral disturbance; E87.0 Hyperosmolality and hypernatremia; I82.413 Acute embolism and thrombosis of femoral vein, bilateral; I82.443 Acute embolism and thrombosis of tibial vein, bilateral; B96.4 Proteus (mirabilis) (morganii) as the cause of diseases classified elsewhere; G30.9 Alzheimer's disease, unspecified; E03.9 Hypothyroidism, unspecified; F32.9 Major depressive disorder, single episode, unspecified; M19.90 Unspecified osteoarthritis, unspecified site; K59.00 Constipation, unspecified; K58.9 Irritable bowel syndrome, unspecified; I11.0 Hypertensive heart disease with heart failure; E86.0 Dehydration; E88.09 Other disorders of plasma-protein metabolism, not elsewhere classified; R26.9 Unspecified abnormalities of gait and mobility; I73.00 Raynaud's syndrome without gangrene; E87.6 Hypokalemia; R79.89 Other specified abnormal findings of blood chemistry; I07.1 Rheumatic tricuspid insufficiency; I27.20 Pulmonary hypertension, unspecified; I50.810 Right heart failure, unspecified; Z68.25 Body mass index [BMI] 25.0-25.9, adult

== ENCOUNTER 2018-01-10 06:56 | Emergency (ER) | payer MEDICARE ==
[2017-11-06 12:27] VITALS: BMI 19.8
[~2018-01-10 06:56] MED LIST changes: +BAYER CHEWABLE81 MG PO; +DIFLUCAN100 MG; +KLONOPIN0.5 MG PO; +LOVENOX60 MG/0.6 SC; +NAMENDA5 MG PO; +REMERON15 MG PO
== END 2018-01-10 09:10 | disposition home or self-care (01) ==
LOC: D.ER 06:56
DX: Z00.00 Encounter for general adult medical examination without abnormal findings (principal); W06.XXXA Fall from bed, initial encounter; Y93.89 Activity, other specified; Y92.129 Unspecified place in nursing home as the place of occurrence of the external cause; I50.9 Heart failure, unspecified; I10 Essential (primary) hypertension

== ENCOUNTER 2018-01-16 17:20 | Emergency (ER) | payer MEDICARE ==
[2017-11-06 12:27] VITALS: Ht 165.1 cm
[2018-01-16] MEDS ORDERED: ELIQUIS5 MG PO (17:26)
[2018-01-16] MEDS ORDERED: ARICEPT10 MG PO (17:27)
[2018-01-16 17:57] LABS: BASOPHILS 0.3 % (0-2); EOSINOPHILS 3.4 % (0-7); HEMATOCRIT 32.1 % (36.0-48.0); HEMOGLOBIN 10.2 g/dL (12-16); IMMATURE GRANULOCYTES 0.1 % (0-5); MCH 27.6 pg (26.0-34.0); MCHC 31.8 g/dL (31.0-37.0); MEAN PLATELET VOLUME 8.7 fL (7.4-10.4); MONOCYTES 7.5 % (2-11); NEUTROPHILS 52.7 % (40-80); PLATELET COUNT 283 10x3/uL (130-400); RBC 3.69 10x6/uL (4.00-5.40); RDW 16.9 % (11.5-14.5); WBC 9.9 10x3/uL (4.8-10.8)
[2018-01-16 18:11] LABS: ALBUMIN 2.8 g/dL (3.4-5.0); ANION GAP 8.6 mmol/L (8-16); BILIRUBIN - TOTAL 0.2 mg/dL (0.2-1.3); CARBON DIOXIDE 32.2 mmol/L (21.0-32.0); POTASSIUM - SERUM 3.8 mmol/L (3.5-5.1); PROTEIN - SERUM 7.1 g/dL (6.4-8.2)
[2018-01-16 20:03] VITALS: BP 120/84
== END 2018-01-16 20:06 ==
LOC: D.ER 17:20
PROVIDERS: Family Medicine
DX: S09.90XA Unspecified injury of head, initial encounter (principal); W19.XXXA Unspecified fall, initial encounter; Y93.89 Activity, other specified; Y92.019 Unspecified place in single-family (private) house as the place of occurrence of the external cause; G30.9 Alzheimer's disease, unspecified; F02.80 Dementia in other diseases classified elsewhere, unspecified severity, without behavioral disturbance, psychotic disturbance, mood disturbance, and anxiety; E07.9 Disorder of thyroid, unspecified; I10 Essential (primary) hypertension

== ENCOUNTER 2019-04-02 14:14 | Inpatient (IN) | payer MEDICARE ==
[~2019-04-02] VITALS: Ht 152.4 cm; Wt 74.8 kg
--- NOTE | 2019-04-02 12:10 | NUR ---
ADMITTED FROM [facility] TO [facility] UNIT AT [facility] ROOM 1122. SHE HAS A HISTORY OF DEMENTIA WITH BEHAVIORS. SHE HAS BEEN YELLING, SCREAMING, CURSING AND COMBATIVE WITH STAFF AND RESIDENCE. SHE IS UNABLE TO AMBULATE AND IS A TWO PERSON ASSIST WITH TRANSFER. CODE STATUS= DNR PER DAUGHTER RAE MORENO. CODE WORD= WILBER. WILL CONTINUE TO MONITOR FOR BEHAVIORS AND CHANGES.
[~2019-04-02 14:14] MED LIST changes: +ELIQUIS5 MG PO
[2019-04-02 20:31] VITALS: BP 140/65
[2019-04-02] MEDS ORDERED: SYNTHROID175 MCG PO (22:23)
--- NOTE | 2019-04-03 01:06 | NUR ---
B) Patient is alert and oriented to self, restless at times, impatient, [place], demanding at times, I) Administered scheduled medications as ordered, monitored for safety, R) Mediation compliant resting now in her bed, P) Continue plan of care.
[2019-04-03 05:50] VITALS: BP 140/65
[2019-04-03 07:04] LABS: ALBUMIN 3.3 g/dL (3.4-5.0); ALKALINE PHOSPHATASE 106 U/L (46-116); ALT (SGPT) 15 U/L (10-68); BILIRUBIN - TOTAL 0.61 mg/dL (0.2-1.3); CALC OSMOLALITY 296 mosm/kg (275-300); CALCIUM 9.6 mg/dL (8.5-10.1); CARBON DIOXIDE 27.7 mmol/L (21.0-32.0); CHLORIDE - SERUM 104 mmol/L (98-107); CHOL - HDL RATIO 3.5 ratio (2.3-4.1); CHOLESTEROL, TOTAL 131 mg/dL (0-200); CREATININE - SERUM 1.7 mg/dL (0.6-1.3); GLUCOSE 110 mg/dL (74-106); HDL CHOLESTEROL 38 mg/dL (32-96); LDL CHOLESTEROL 72 mg/dL (0-100); LDL-HDL RATIO 1.9 ratio (1.5-3.5); POTASSIUM - SERUM 3.8 mmol/L (3.5-5.1); PROTEIN - SERUM 8.1 g/dL (6.4-8.2); SODIUM 142 mmol/L (136-145); THYROID STIMULATING HORMONE 0.06 uIU/mL (0.36-3.74); TRIGLYCERIDE 105 mg/dL (30-200); UREA NITROGEN 50 mg/dL (7-18); eGFR NON AFRICAN AMERICAN 30 mL/min (90-120)
[2019-04-03 07:59] LABS: BASOPHILS 0.4 % (0-2); EOSINOPHILS 3.1 % (0-7); HEMATOCRIT 40.3 % (36.0-48.0); HEMOGLOBIN 13.8 g/dL (12-16); IMMATURE GRANULOCYTES 0.1 % (0-5); LYMPHOCYTES 40.6 % (15-50); MCH 28.3 pg (26.0-34.0); MCHC 34.2 g/dL (31.0-37.0); MCV 82.8 fL (80.0-100.0); MEAN PLATELET VOLUME 9.8 fL (7.4-10.4); MONOCYTES 10.1 % (2-11); NEUTROPHILS 45.7 % (40-80); PLATELET COUNT 274 10x3/uL (130-400); RBC 4.87 10x6/uL (4.00-5.40); RDW 13.6 % (11.5-14.5); WBC 7.6 10x3/uL (4.8-10.8)
--- NOTE | 2019-04-03 08:00 | NUR ---
AWAKE AND ORIENTED TO PERSON ONLY. SHE IS VERY [place], DEMANDING, AND COMPLAINING. SHE SCREAMS ABD YELLS AT STAFF. FALL PRECAUTIONS IN PLACE. MONITOR FOR SAFETY AND BEHAVIORAL CHANGES.
[2019-04-03 08:38] VITALS: BP 168/75
[2019-04-03 11:18] VITALS: Ht 152.4 cm; Wt 74.8 kg
--- NOTE | 2019-04-03 11:35 | PSY ---
PATIENT NAME:ESTELA DODD MEDICAL RECORD: [id number] : 37 LOCATION:[facility] ADMISSION DATE: 04/02/19 ACCOUNT: [id number] PSYCHIATRIC EVALUATION DATE OF EVALUATION: 04/02/19 PSYCHIATRIC EVALUATION IDENTIFYING DATA: The patient is 83 years old and she is admitted to the hospital on a voluntary basis. CHIEF COMPLAINT: Agitation. HISTORY OF PRESENT ILLNESS: The patient comes to us from a local senior living. She has been disruptive and agitated there. She is clearly very impaired and has no recollection of the events that precipitated this admission. She denies that she would seek to harm herself or others. Her primary issue right now is that she is cold and even though she has 2 blankets on her, she continues to complain about the temperature in the room. She is not febrile. PAST MEDICAL HISTORY: Significant for hypercholesterolemia, hypothyroidism, vitamin D deficiency, and hypertension. PAST PSYCHIATRIC HISTORY: Significant for a long established diagnosis of depression and she was hospitalized on this unit more than almost 2 years ago for similar behaviors. FAMILY HISTORY: Noncontributory. ALLERGIES: BACLOFEN. CURRENT MEDICATIONS: Include aspirin, Norvasc, Synthroid, Aricept, Klonopin, Namenda, Pravachol, and Eliquis. MENTAL STATUS EXAMINATION: The patient is awake and alert. She is only oriented to person. Her memory, concentration, and abstraction abilities are at least moderately impaired. She denies that she would seek to harm herself or others as well as overt psychotic symptoms. ASSETS: Supportive family members. LIABILITIES: Limited insight. DIAGNOSTIC IMPRESSION: AXIS I: Major neurocognitive disorder of the Alzheimer's type with behavioral disturbances. AXIS II: None. AXIS III: Hypercholesterolemia, hypothyroidism, and hypertension. AXIS IV: Moderate. AXIS V: Global assessment of functioning is 30. PLAN: At the time of admission, the patient was in good behavioral control, but highly distressed and confused. She will be comprehensively evaluated from both medical, psychological, and social standpoint. She will be treated with both mood stabilizing and memory enhancing medications. Her long-term prognosis is guarded. TRANSINT:[id number] Voice Confirmation ID: [id number] DOCUMENT ID: [id number] FELICIA JOE MD at 1135 CC: [id number] DICTATION DATE: 04/02/19 1604 SUPERINTENDENT COMMUNICATIONS: 04/02/19 1623 ADM IN [facility] [address] [facility]
[2019-04-03] MEDS ORDERED: ELIQUIS2.5 MG PO (11:50)
[2019-04-03] MEDS ORDERED: VISTARIL25 MG PO (11:51)
[2019-04-03] MEDS ORDERED: FUROSEMIDE20 MG PO (11:51)
[2019-04-03] MEDS ORDERED: IMODIUM2 MG PO (11:52)
[2019-04-03] MEDS ORDERED: K-TAB10 MEQ PO (11:52)
[2019-04-03] MEDS ORDERED: SENNA LAXATIVE8.6 MG PO (11:53)
[2019-04-03] MEDS ORDERED: NORVASC10 MG PO (11:53)
--- NOTE | 2019-04-03 20:58 | NUR ---
RECEIVED IN PATIENT ROOM. LAYING IN BED. YELLING. COOPERATIVE WITH CARE AND ASSESSMENT. REFUSED VITALS. REDIRECT AND REORIENT NEEDED. RESTING IN BED WITH EYES CLOSED AT THIS TIME. CONTINUE PLAN OF CARE.
[2019-04-04 07:14] LABS: RAPID PLASMA REAGIN Non Reactive (Non Reactive)
--- NOTE | 2019-04-04 07:52 | NUR ---
REC'D PT LAYING IN BED WITH EYES OPEN. PT YELLS OUT WITH ADLS. PT YELLING DURING ADLS AT THIS TIME. PT IS ALERT AND ORIENTED TO SELF. NO ACUTE DISTRESS NOTED. PT YELL WHEN GENERALLY SPEAKING. PT COMPLIANT WITH MEDS, ASSESSMENTS AND VITALS. PT UNABLE TO BE REDIRECTED. CHAIR ALARM IN PLACE AND ACTIVE. WILL CONT PLAN OF CARE.
--- NOTE | 2019-04-04 10:00 | NUR ---
PATIENT REQUESTED TO GO TO BATHROOM UPON STAFF TAKING HER TO THE BATHROOM SHE BEGAN TO YELL AND SCREAM "I DONT WANT TO GO TO THE BATHROOM" PT REFUSED TO ALLOW STAFF TO REMOVE HER FROM TOILET. PT CONTINUED TO YELL EVEN WITH REDIRECTION. FINALLY ABLE STAFF WAS ABLE TO REMOVE PATIENT FROM TOILET WITH SIT TO STAND LIFT. NURSE ADMINISTERED PER DR. JOE ORDER ATIVAN 1 MG AND HALDOL 2 MG PO FOR ANXIETY. WILL REASSES Q 1 HOUR FOR EFFECTIVENESS. WILL CONT TO MONITOR.
--- NOTE | 2019-04-04 10:08 | PN ---
PATIENT:ESTELA DODD MEDICAL RECORD: [id number] LOCATION:[facility] ADMISSION DATE: 04/02/19 PROGRESS NOTE DATE OF SERVICE: 04/03/2019 SUBJECTIVE: The patient's case was discussed with staff. She has no new complaint. OBJECTIVE: The patient is in good behavioral control with limited insight about her condition. She is tolerating her medicines well. ASSESSMENT: No change in diagnoses. PLAN: The patient has been doing some yelling, although when I speak with her, she is calm. I am going to order some Trilafon to assist with her thought disorganization. TRANSINT:[id number] Voice Confirmation ID: [id number] DOCUMENT ID: [id number] FELICIA JOE MD at 1008 CC: [id number] DICTATION DATE: 04/03/19 1234 ENTRY ANALYST: 04/03/19 1239 ADM IN [place] [id number] [place] [address]
--- NOTE | 2019-04-04 10:42 | NUR ---
Team Treatment Review: Diet: Regular PO Intake: 3% per 3 meals Wt: 150lbs 04/02; 151lbs 04/03 BM: x 0 since admission (Chronic Constipation Noted) Meds: Vit B12 Labs: Mag- 1.7(L), Pro-B Natriuretic Pept- 94537(H) Will Monitor Closely Consider laxative, Mag supp Consider Megace if PO intake consistently <50% of meals Ensure TID Goals: Labs WNL PO intake >/= 75% per meals BM q 3 days Clinical Dietitian Following
[2019-04-04 10:46] VITALS: BP 135/75
--- NOTE | 2019-04-04 11:00 | NUR ---
PATIENT CONTINUES TO YELL OUT LOUD. UNABLE TO REDIRECT. STAFF AND PATIENT MOVED TO HALLWAY TO ATTEMPT TO CALM PATIENT. WILL CONT PLAN OF CARE.
--- NOTE | 2019-04-04 16:33 | NUR ---
PATIENT CONSTANTLY YELLING ALOUD, CURSING, UNABLE TO REDIRECT.
--- NOTE | 2019-04-04 16:57 | NUR ---
PT CONT TO RAJI PHILLIPS, UNABLE TO RE-DIRECT. OTHER PATIENTS BECOMINIG AGITATED. ATIVAN 0.5 MG AND HALDOL 2 MG ADMIN IM LEFT DORSOGLUTEAL. ANGELIA WELL.
[2019-04-04 20:00] VITALS: BP 126/61
--- NOTE | 2019-04-04 21:57 | NUR ---
B.) PT IS ALERT AND ORIENTED TO SELF. PT IS OBSERVED SCREAMING AT STAFF AND PEERS. I.) PROVIDED PM MEDICATIONS AND REDIRECTION R.) COMPLIANT WITH ALL MEDICATIONS AND HAS QUIETED DOWN ONCE SHE WAS IN BED. P.) CONTINUE PLAN OF CARE
[2019-04-05 04:46] LABS: APPEARANCE CLOUDY (CLEAR); BACTERIA MANY /hpf (NONE SEEN); BILIRUBIN NEGATIVE (NEGATIVE); COLOR YELLOW (YELLOW); EPITHELIAL CELLS RARE /hpf (0-5); GLUCOSE NEGATIVE (NEGATIVE); KETONE NEGATIVE (NEGATIVE); NITRITE NEGATIVE (NEGATIVE); PROTEIN NEGATIVE (NEGATIVE); SPECIFIC GRAVITY 1.005 (1.005-1.020); UROBILINOGEN NORMAL (NORMAL); WHITE CELLS - URINE >50 /hpf (0-5)
--- NOTE | 2019-04-05 07:25 | NUR ---
REC'D PT LAYING IN BED WITH EYES CLOSED.RESP EVEN AND NONLABORED. NO ACUTE DISTRESS NOTED. PT LAYING IN BED YELLING OUT AT THIS TIME. AT TIMES UNABLE TO REDIRECT PATIENT. PT IS OSAGE AND YELLS AT TIMES. PT COMPLIANT WITH MEDS, VITALS AND ASSESSMENTS. CHAIR ALARM IN PLACE AND ACTIVE. WILL CONT PLAN OF CARE.
[2019-04-05 08:18] LABS: BASOPHILS 0.2 % (0-2); EOSINOPHILS 3.9 % (0-7); HEMATOCRIT 38.6 % (36.0-48.0); HEMOGLOBIN 12.8 g/dL (12-16); IMMATURE GRANULOCYTES 0.1 % (0-5); LYMPHOCYTES 42.3 % (15-50); MCH 28.2 pg (26.0-34.0); MCHC 33.2 g/dL (31.0-37.0); MEAN PLATELET VOLUME 9.5 fL (7.4-10.4); MONOCYTES 9.4 % (2-11); NEUTROPHILS 44.1 % (40-80); PLATELET COUNT 227 10x3/uL (130-400); RBC 4.54 10x6/uL (4.00-5.40); WBC 8.4 10x3/uL (4.8-10.8)
[2019-04-05 08:36] LABS: ANION GAP 11.3 mmol/L (8-16); BILIRUBIN - TOTAL 0.47 mg/dL (0.2-1.3); CALCIUM 9.3 mg/dL (8.5-10.1); CARBON DIOXIDE 29.4 mmol/L (21.0-32.0); CREATININE - SERUM 1.4 mg/dL (0.6-1.3); POTASSIUM - SERUM 3.7 mmol/L (3.5-5.1); PROTEIN - SERUM 7.6 g/dL (6.4-8.2)
--- NOTE | 2019-04-05 11:17 | NUR ---
NURSE AND STAFF PUT A BANDAID ON LEFT UPPER FOREARM AND REINFORCED WITH KOBAND TO PREVENT PICKING AT BANDAID.
--- NOTE | 2019-04-05 16:02 | NUR ---
PATIENT WAS C/O OF PAIN TO DENTURES. REMOVED DENTURES AND SOAKED IN CLEANSER. LABELED CUP AND PUT IN ROOM.
--- NOTE | 2019-04-05 19:10 | NUR ---
REC'D SITTING IN THE DAYROOM. ORIENTED TO SELF AND HOSPITAL. RELATES REASON FOR HOSPITALIZATION "BECAUSE SOMEBODY FELL ON THEIR BUTT." KEEPS ASKING WHEN CAN SHE GO TO BED. SKIN TEAR TO LEFT UPPER ARM. ADMINISTER MEDS PER ORDERS Q SHIFT AND MONITOR COMPLIANCE. REORIENT Q SHIFT AND NEEDED. MED COMPLIANT. POOR REORIENTATION DUE TO IMPAIRED ABILITY TO RETAIN INFORMATION. CONTINUE POC AND PROVIDE SAFE ENVIRONMENT.
[2019-04-05 20:41] VITALS: BP 141/69
--- NOTE | 2019-04-06 07:35 | NUR ---
REC'D PT LAYING IN BED WITH EYES CLOSED. RESP EVEN AND NONLABORED. NO ACUTE DISTRESS NOTED. PT IS ALERT AND ORIENTED TO SELF ONLY. HEAD KILN OPERATOR DID NOT REPORT ANY BEHAVIORS. PT DOES TEND TO YELL OUT AT TIMES. COMPLETE ASSISTANCE REQUIRED WITH ADL'S. PT IS COMPLIANT WITH ASSESSTMENT, VITALS. ALARM IN PLACE AND ACTIVE. WILL CONT PLAN OF CARE.
[2019-04-06 08:15] VITALS: BP 122/70
[2019-04-06 09:20] VITALS: BP 122/70
--- NOTE | 2019-04-06 11:06 | NUR ---
The patient's daughter called and she said she would try to bring clothes for her mother tomorrow. She called to check on her and let her know that she is not yelling and she had a good night last night also.
--- NOTE | 2019-04-06 12:39 | PN ---
PATIENT:ESTELA DODD MEDICAL RECORD: [id number] LOCATION:[facility] ADMISSION DATE: 04/02/19 PROGRESS NOTE DATE OF SERVICE: 04/05/2019 SUBJECTIVE: The patient's case was discussed with staff. She has no new complaint. OBJECTIVE: The patient is in good behavioral control. She has not been aggressive today. ASSESSMENT: No change in diagnoses. PLAN: Current medicines have been reviewed and will be maintained. Long-term prognosis is guarded. TRANSINT:[id number] Voice Confirmation ID: [id number] DOCUMENT ID: [id number] FELICIA JOE MD at 1239 CC: [id number] DICTATION DATE: 04/05/19 180 REAL ESTATE MARKETING COORDINATOR: 04/05/19 1820 ADM IN [place] [id number] [place] [id number]
--- NOTE | 2019-04-06 12:39 | PN ---
PATIENT:ESTELA DODD MEDICAL RECORD: [id number] LOCATION:[facility] ADMISSION DATE: 04/02/19 PROGRESS NOTE DATE OF SERVICE: 04/04/2019 SUBJECTIVE: The patient's case was discussed with staff. She has no new complaint. OBJECTIVE: The patient is quite disorganized and disruptive. She yells randomly for no apparent reason. She has almost no insight about her situation. ASSESSMENT: No change in diagnoses. PLAN: I am going to discontinue the patient's Trilafon and we will start her on Geodon. Geodon is being used to treat her underlying psychotic symptoms and agitation. She will be monitored for clinical changes associated with its use. TRANSINT:[id number] Voice Confirmation ID: [id number] DOCUMENT ID: [id number] FELICIA JOE MD at 1239 CC: [id number] DICTATION DATE: 04/04/19 1017 ACCOUNTING INSTRUCTOR: 04/04/19 1023 ADM IN [place] [id number] [place] [address]
--- NOTE | 2019-04-06 18:27 | NUR ---
PATIENT IN DAY AREA YELLING OUT "HELP HELP. I NEED SOMEONE TO" PATIENT IS UNABLE TO BE REDIRECTED. MULTIPLE REDIRECTIONS ATTEMPTED. ATIVAN 0.5 MG AND HALDOL 2 MG IM. WILL REASSESS Q 1 HOUR FOR EFFECTIVENESS. PT IS PICKING AT SKIN AREA THAT HAS SCABS STATING" ITS GOING TO GET EATEN BY RATS" PT CONTINUES TO REMOVE BANDAIDS. PT IS MED COMPLIANT. CHAIR ALARM IN PLACE AND ACTIVE. WILL CONT PLAN OF CARE.
[2019-04-06 20:36] VITALS: BP 126/70
--- NOTE | 2019-04-06 20:41 | NUR ---
PT. IS CONFUSED, CAN MAKE BASIC NEEDS KNOWN. COMPLIANT WITH MEDS. INCONTIENT OF BOWEL. WILL CONTINUE POC
[2019-04-07 08:00] VITALS: BP 120/91
--- NOTE | 2019-04-07 08:09 | NUR ---
REC'D PATIENT IN CHAIR YELLING OUT "I HAVE TO GO TO THE BATHROOM" OBTAINED PT WEIGHT THIS A.M. X3 ASSISTANCE TO TRANSFER PATIENT. ALERT AND ORIENTED TO SELF ONLY. NO ACUTE DISTRESS NOTED. PREVIOUS SHIFT DID NOT REPORT ANY BEHAVIORS. PT SOMEWHAT COMPLIANT WITH VITALS. COMPLIANT WITH MEDS, VITALS. CHAIR ALARM IN PLACE AND ACTIVE. WILL CONT PLAN OF CARE.
--- NOTE | 2019-04-07 10:59 | NUR ---
PATIENT DISCONTINUED LEVAQUIN 250 MG DAILY. PATIENT INTITAL DOSE OF OMNICEF 300 MG PO BID X14 DOSES. PT TOLERATED WELL. WILL MONITOR FOR S/SX OF REACTION.
--- NOTE | 2019-04-07 11:14 | PN ---
PATIENT:ESTELA DODD MEDICAL RECORD: [id number] LOCATION:[facility] ADMISSION DATE: 04/02/19 PROGRESS NOTE DATE OF SERVICE: 04/06/2019 SUBJECTIVE: The patient's case was discussed with staff. She has no new complaint. OBJECTIVE: The patient is in good behavioral control with limited insight about her condition. She tolerates her medicines well. She is not eating well, but she is being given Megace to assist with this. I do think she is slightly sedated. ASSESSMENT: No change in diagnoses. PLAN: The patient's Zyprexa is going to be discontinued. She will be monitored for clinical changes associated with its discontinuation. TRANSINT:[id number] Voice Confirmation ID: [id number] DOCUMENT ID: [id number] FELICIA JOE MD at 1114 CC: [id number] DICTATION DATE: 04/06/19 1242 BERRY PICKER: 04/06/19 1250 ADM IN [place] [id number] [place] [address]
--- NOTE | 2019-04-07 11:16 | NUR ---
PATIENT DAUGHTER BROUGHT CLOTHES FOR HER TODAY IN A STRIPPED BAG. WILL INVENTORY/ PATIENT SWEATER ON.
[2019-04-07 20:50] VITALS: BP 113/56
--- NOTE | 2019-04-07 22:08 | NUR ---
RECEIVED IN HALLWAY OUSIDE OF NURSES STATION. ASSIST TO BED. CALM AND COOPERATIVE WITH CARE AND ASSESSMENT. NO SIGNS OF AGGRESSION. REDIRECT AND REORIENT NEEDED. RESTING IN BED WITH EYES CLOSED AT THIS TIME. CONTINUE PLAN OF CARE
[2019-04-08 08:26] VITALS: BP 130/88
--- NOTE | 2019-04-08 11:04 | NUR ---
RECEIVED PATIENT IN DINING ROOM FOR B'FAST, ALERT, AGITATED, REFUSED MORNING MEDS. YELLS ALOUD DURING PATIENT CARE. UNCOOPERATIVE WITH MANY ASPECTS OF CARE. CONT POC, ENCOURAGING INCREASED PARTICIPATION.
--- NOTE | 2019-04-08 13:42 | PN ---
PATIENT:ESTELA DODD MEDICAL RECORD: [id number] LOCATION:[facility] ADMISSION DATE: 04/02/19 PROGRESS NOTE DATE OF SERVICE: 04/07/2019 SUBJECTIVE: The patient's case was discussed with staff. She has no new complaint. OBJECTIVE: The patient is in good behavioral control with poor insight about her condition. She does tolerate her medicines well. ASSESSMENT: No change in diagnoses. PLAN: Brief supportive and educational interventions were made. Long-term prognosis is guarded. TRANSINT:[id number] Voice Confirmation ID: [id number] DOCUMENT ID: [id number] FELICIA JOE MD at 1342 CC: [id number] DICTATION DATE: 04/07/19 1117 ADMINISTRATIVE DIETITIAN: 04/07/19 1132 ADM IN [address] [address]
--- NOTE | 2019-04-08 20:41 | NUR ---
RECEIVED IN HALLWAY OUTSIDE OF NURSES STATION. YELLING OUT CONTINUOUSLY. VERY CONFUSED. RESTLESS. COOPERATIVE WITH CARE AND ASSESSMENT. NO SIGNS OF AGGRESSION. REDIRECT AND REORIENT NEEDED. CONTINUES TO REST IN RECLINER. YELLING OUT AT TIMES. CONTINUE PLAN OF CARE
[2019-04-08 21:25] VITALS: BP 131/75
--- NOTE | 2019-04-08 23:43 | NUR ---
PT SCRATCHED OFF A SCAB ON HER LEFT ARM JUST BELOW HER ELBOW AND WAS PICKING AT IT. I PLACED A BANDAID ON IT AND REDIRECTED HER NOT TO PICK AT IT.
[2019-04-09 08:00] VITALS: BP 125/58
--- NOTE | 2019-04-09 12:20 | PN ---
PATIENT:ESTELA DODD MEDICAL RECORD: [id number] LOCATION:[facility] ADMISSION DATE: 04/02/19 PROGRESS NOTE DATE OF SERVICE: 04/08/2019 SUBJECTIVE: The patient's case was discussed with staff. She has no new complaint. OBJECTIVE: The patient denies intent to harm herself or others. She was agitated this morning, but is calmer this afternoon. ASSESSMENT: No change in diagnoses. PLAN: Supportive and educational interventions were made. Current medicines will be maintained. TRANSINT:[id number] Voice Confirmation ID: [id number] DOCUMENT ID: [id number] FELICIA JOE MD at 1220 CC: [id number] DICTATION DATE: 04/08/19 1517 INSET CUTTER: 04/08/19 1607 ADM IN [place] [id number] [place] [address]
--- NOTE | 2019-04-09 18:24 | NUR ---
RESTING QUIETLY IN RECLINER, CALM, QUIET, NO YELLING ALOUD AT THIS TIME. COMPLIANT WITH MEDICATIONS. INITIAL DOSE OF ROCEPHIN GIVEN THIS SHIFT. NO ADVERSE REACTIONS NOTED. CONT POC DIRECTED.
--- NOTE | 2019-04-09 22:55 | NUR ---
RECEIVED IN HALLWAY OUTSIDE OF NURSES STATION. SITTING IN A RECLINER YELLING OUT LOUDLY AT TIMES. COOPERATIVE WITH CARE AND ASSESSMENT. REDIRECT AND REORIENT NEEDED. RESTING IN BED WITH EYES CLOSED AT THIS TIME. CONTINUE PLAN OF CARE
--- NOTE | 2019-04-10 00:15 | NUR ---
PATIENT YELLING OUT. INCREASING ANXIETY. PRN ATIVAN 0.5 MG IM GIVEN FOR ANXIETY.
--- NOTE | 2019-04-10 00:55 | NUR ---
RESTING IN BED WITH EYES CLOSED AT THIS TIME.
[2019-04-10 06:35] LABS: T4 THYROXINE 9.6 ug/dL (4.7-13.3); THYROID STIMULATING HORMONE 0.09 uIU/mL (0.36-3.74)
--- NOTE | 2019-04-10 08:09 | NUR ---
INCREASING ANXIETY. YELING OUT LOUDLY. UNABLE TO REDIRECT AND REORIENT. PRN ATIVAN 0.5 MG IM GIVEN FOR ANXIETY
[2019-04-10 08:30] VITALS: BP 114/66
--- NOTE | 2019-04-10 09:56 | PN ---
PATIENT:ESTELA DODD MEDICAL RECORD: [id number] LOCATION:[facility] ADMISSION DATE: 04/02/19 PROGRESS NOTE DATE OF SERVICE: 04/09/2019 SUBJECTIVE: The patient's case was discussed with staff. She has no new complaint. OBJECTIVE: The patient is in good behavioral control. She has limited insight about her situation. She does have some demanding behaviors, but is not openly aggressive. ASSESSMENT: No change in diagnoses. PLAN: Current medicines will be maintained. TRANSINT:[id number] Voice Confirmation ID: [id number] DOCUMENT ID: [id number] FELICIA JOE MD at 0956 CC: [id number] DICTATION DATE: 04/09/19 1223 ORTHODONTIC TREATMENT COORDINATOR: 04/09/19 1230 ADM IN [place] [id number]
--- NOTE | 2019-04-10 12:02 | NUR ---
SCREAMING ,YELLING,NONCOMPLIANT.WILL NOT REDIRECT.ATIVAN 0.5MG IM TO RT ARM GIVEN PER ORDERS.
--- NOTE | 2019-04-10 13:00 | NUR ---
GOOD RESPONSE TO ATIVAN,EYES CLOSED,RESP REG AND EVEN.
--- NOTE | 2019-04-10 18:06 | NUR ---
CONFUSED AND DISORIENTED.YELLS OUT LOUD.DIFFICULT TO REDIRECT.WANTS TO GO TO BED.IS COMPLIANT WITH MEDS.REQUIRES TOTAL CARE.WILL CONTINUE WITH CURRENT PLAN OF CARE.
[2019-04-10 20:46] VITALS: BP 130/72
--- NOTE | 2019-04-10 22:10 | NUR ---
PATIENT RECEIVED PRN HALDOL AND ATIVAN FOR SCREAMING CONTINOUSLY, NOT ABLE TO BE CONTROLLED VERBALLY. COMPLIANT WITH MEDS THIS EVENING(PUDDING). WILL FOLLOW POC
--- NOTE | 2019-04-10 23:00 | NUR ---
GOOD RESULTS FROM PRN. SLEEPING WELL AT THIS TIME. WILL CONTINUE TO MONITOR
--- NOTE | 2019-04-11 12:28 | NUR ---
PATIENT SITTING IN CHAIR EATING LUNCH WITH ASSISTANCE. RESP EVEN AND NONLABORED. PT TOOK MEDICATIONS THIS A.M. PT TOLERATED IM CEFTRIAXONE 1 GRAM. WILL MONITOR S/SX FOR REACTION. PT DID YELL OUT A COUPLE OF TIMES THIS MORNING. PT IS AWAKE AND ALERT TO SELF ONLY. CHAIR ALARM IN PLACE AND ACTIVE. WILL CONT PLAN OF CARE.
--- NOTE | 2019-04-11 15:02 | PN ---
PATIENT:ESTELA DODD MEDICAL RECORD: [id number] LOCATION:[facility] ADMISSION DATE: 04/02/19 PROGRESS NOTE DATE OF SERVICE: 04/10/2019 SUBJECTIVE: The patient's case was discussed with staff. She has no new complaint. OBJECTIVE: The patient denies intent to harm herself or others. She generally tolerates her medicines well. ASSESSMENT: No change in diagnoses. PLAN: The patient has been intermittently complaining and demanding, but not openly aggressive or combative. Unfortunately, she is only intermittently taking her medicines, which makes it impossible to adequately and properly adjust them. I have spoken to her about this and she insists she is taking her medicines, which is not true and when I tell her that that is not correct, she gets angry and does not want to talk about it. TRANSINT:[id number] Voice Confirmation ID: [id number] DOCUMENT ID: [id number] FELICIA JOE MD at 1502 CC: [id number] DICTATION DATE: 04/10/19 1522 INCREMENT MANAGER: 04/10/19 1534 ADM IN [facility] [address] [place] [id number]
[2019-04-11 20:45] VITALS: BP 137/66
--- NOTE | 2019-04-11 22:48 | NUR ---
B) Patient is alert and oriented to self, very confused and yells out at times, missunderstands frequently, I) Administered scheduled medications as ordered, monitored for safeety assisted with needs, redirected as needed, R) mediation compliant, sleeping quietly in her bed, P) Continue plan of care.
--- NOTE | 2019-04-12 08:10 | NUR ---
REC'D PATIENT SITTING IN CHAIR AWAITING BREAKFAST. RESP EVEN AND NONLABORED. NO ACUTE DISTRESS NOTED. PT IS ALERT ORIENTED TO SELF, CONFUSED. PT IS [place] AND YELLS OUT WITH FREQUENT MISUNDERSTANDING. PT IS COMPLIANT WITH MEDS, VITALS AND ASSESSMENTS. PT IS A TOTAL ASSIST WITH ADLS. CHAIR ALARM IN PLACE AND ACTIVE. WILL CONT PLAN OF CARE.
[2019-04-12 08:51] VITALS: BP 128/56
--- NOTE | 2019-04-12 16:06 | PN ---
PATIENT:ESTELA DODD MEDICAL RECORD: [id number] LOCATION:[facility] ADMISSION DATE: 04/02/19 PROGRESS NOTE DATE OF SERVICE: 04/11/2019 SUBJECTIVE: The patient's case was discussed with staff. She has no new complaint. OBJECTIVE: The patient continues to yell out intermittently. She is significantly and seriously disruptive. She is intermittently taking her medications. I am going to try to consolidate them as much as practicable to a twice daily dosing schedule. TRANSINT:[id number] Voice Confirmation ID: [id number] DOCUMENT ID: [id number] FELICIA JOE MD at 1606 CC: [id number] DICTATION DATE: 04/11/19 1516 ALARM INSTALLATION TECHNICIAN: 04/11/19 1649 ADM IN [place] [id number] [place] [address]
[2019-04-12 20:00] VITALS: BP 119/61
--- NOTE | 2019-04-13 04:18 | NUR ---
B) Patient is alert and oriented to self, very confused and misunderstands frequently, yelling out at times, I) Administered scheduled medications as ordered, monitored for safety R) Mediation compliant, resting not quietly in her bed, P) Continue plan of care.
--- NOTE | 2019-04-13 09:45 | NUR ---
RECEIVED PATIENT IN DINING ROOM FOR B'FAST, ALERT, YELLING ALOUD. MEDS ADMIN PER ORDERS WITH COMPLETE MED COMPLIANCE NOTED. EXTRA ENSURE GIVEN PER REQUEST AT B'FAST TIME. MEDS EFFECTIVE WITH PATIENT'S ANXIETY. CONT POC DIRECTED.
[2019-04-13 10:41] VITALS: BP 130/59
--- NOTE | 2019-04-13 12:25 | PN ---
PATIENT:ESTELA DODD MEDICAL RECORD: [id number] LOCATION:[facility] ADMISSION DATE: 04/02/19 PROGRESS NOTE DATE OF SERVICE: 04/12/2019 SUBJECTIVE: The patient's case was discussed with staff. She has no new complaint. OBJECTIVE: The patient denies intent to harm herself or others. She does tolerate her medicines well. ASSESSMENT: No change in diagnoses. PLAN: Brief supportive and educational interventions were made. Long-term prognosis is guarded. TRANSINT:[id number] Voice Confirmation ID: [id number] DOCUMENT ID: [id number] FELICIA JOE MD at 1225 CC: [id number] DICTATION DATE: 04/12/19 170 CUSTOMER OPERATIONS ASSOCIATE: 04/12/19 2206 ADM IN [place] [id number]
--- NOTE | 2019-04-13 23:09 | NUR ---
B.) PT IS ALERT AND ORIENTED TO SELF ONLY. SHE YELLS AND IS HARD OF HEARING. SHE OFTEN DEMANDS THINGS OF STAFF. I.) REORIENT OFTEN. PROVIDED PM MEDICATIONS. R.) PT REMAINS CONFUSED. COMPLIANT WITH ALL MEDICATIONS. P.) CONTINUE PLAN OF CARE
[2019-04-14 07:00] VITALS: BP 136/60
--- NOTE | 2019-04-14 16:30 | NUR ---
RECEIVED PT IN DINING ROOM FOR B'FAST, ALERT, CALM, COOPERATIVE, DEMANDING. MEDS ADMIN PER ORDERS WITH COMPLETE MED COMPLIANCE NOTED. CONT POC DIRECTED.
[2019-04-14 20:00] VITALS: BP 139/65
--- NOTE | 2019-04-14 22:50 | NUR ---
RECEIVED IN DAYROOM. SITTING IN A RECLINING CHAIR WITH PEERS AT HER SIDE. CALM AND COOPERATIVE WITH CARE AND ASSESSMENT. NO SIGNS OF AGGRESSION. REDIRECT AND REORIENT NEEDED. RESTING IN BED WITH EYES CLOSED AT THIS TIME. CONTINUE PLAN OF CARE
[2019-04-15 08:00] VITALS: BP 148/75
--- NOTE | 2019-04-15 10:16 | PN ---
PATIENT:ESTELA DODD MEDICAL RECORD: [id number] LOCATION:[facility] ADMISSION DATE: 04/02/19 PROGRESS NOTE DATE OF SERVICE: 04/13/2019 SUBJECTIVE: The patient's case was discussed with staff. She has no new complaint. OBJECTIVE: The patient is very disorganized. She continues to intermittently yell. ASSESSMENT: No change in diagnoses. PLAN: This patient's dementia is very advanced. I am recommending comfort care measures for her. Her oral intake has declined. I am going to continue the Megace, which so far has not had much of an effect. Unfortunately, the loss of appetite, weight loss, and decreased mobility all of these are consistent with her condition, which is again an advanced dementia. TRANSINT:[id number] Voice Confirmation ID: [id number] DOCUMENT ID: [id number] FELICIA JOE MD at 1016 CC: [id number] DICTATION DATE: 04/13/19 1230 RESCUE BOAT OPERATOR: 04/13/19 1239 ADM IN [place] [address] [place] [address]
--- NOTE | 2019-04-15 10:16 | PN ---
PATIENT:ESTELA DODD MEDICAL RECORD: [id number] LOCATION:[facility] ADMISSION DATE: 04/02/19 PROGRESS NOTE DATE OF SERVICE: 04/14/2019 SUBJECTIVE: The patient's case was discussed with staff. She has no new complaint. OBJECTIVE: The patient is eating and sleeping reasonably well. She does have limited insight about her situation. ASSESSMENT: No change in diagnoses. PLAN: Supportive and educational interventions were made. Long-term prognosis is guarded. TRANSINT:[id number] Voice Confirmation ID: [id number] DOCUMENT ID: [id number] FELICIA JOE MD at 1016 CC: [id number] DICTATION DATE: 04/14/19912 INSTRUMENT PROCESSING TECH: 04/14/19 1003 ADM IN [place] [id number] [place] [address]
--- NOTE | 2019-04-15 17:12 | NUR ---
RECEIVED PT IN DINING ROOM AT B'FAST, ALERT, CALM, COOPERATIVE, YELLING ALOUD ONLY OCCASIONALLY NOW. COMPLIANT WITH MEDS. COOPERATIVE WITH CARE. CONT POC.
--- NOTE | 2019-04-15 22:07 | NUR ---
REC'D PATIENT SITTING IN CHAIR. COOPERATIVE WITH ASSESSMENT. DOES NOT INTERACT WITH PEERS HOWEVER IS APPROPRIATE WITH STAFF. ADMINISTER MEDS PER ORDERS Q SHIFT AND MONITOR COMPLIAMCE. REORIENT NEEDED. MED COMPLIANT. POOR REORIENTATON RELATED TO IMPAIRED ABILITY TO PROCESS AND RETAIN INFORMATION. CONTINUE POC AND PROVIDE SAFE ENVIRONMENT.
[2019-04-16 00:24] VITALS: BP 120/65
[2019-04-16 08:19] VITALS: BP 135/53
--- NOTE | 2019-04-16 09:00 | NUR ---
PATIENT IS AWAKE, WITH CONFUSION NOTED. SMILING, CALM AND COOPERATIVE WITH CARE AND ASSESSMENT. MEDICATION COMPLIANT. YELLS OUT LESS THAN PREVIOUSLY. REDIRECT AND REORIENT FREQUENTLY. FALL PRECAUTIONS IN PLACE. WILL CPOC.
--- NOTE | 2019-04-16 15:20 | PN ---
PATIENT:ESTELA DODD MEDICAL RECORD: [id number] LOCATION:[facility] ADMISSION DATE: 04/02/19 PROGRESS NOTE DATE OF SERVICE: 04/15/2019 SUBJECTIVE: The patient's case was discussed with staff. She has no new complaint. OBJECTIVE: The patient is in good behavioral control with limited insight about her condition. She is eating and sleeping reasonably well and is engaged in much less behavior problems. ASSESSMENT: No change in diagnoses. PLAN: The patient is yelling much less and has shown significant improvement. If this continues, I anticipate she can be transitioned out of the hospital soon. TRANSINT:[id number] Voice Confirmation ID: [id number] DOCUMENT ID: [id number] FELICIA JOE MD at 1520 CC: [id number] DICTATION DATE: 04/15/19 1216 FAMILY ASSISTANT: 04/15/19 1230 ADM IN [place] [id number] [place] [address]
--- NOTE | 2019-04-16 15:31 | NUR ---
Nutrition Follow-up: Diet: Regular + Ensure with meals PO intake: 62% x 9 meals Wt: 158# (04/14/19); admit wt: 151# (04/03/19) Last BM 04/11/[address] RD Following
--- NOTE | 2019-04-16 19:53 | NUR ---
RECEIVED IN DAYROOM. SITTING IN A RECLINING CHAIR WITH PEERS AT HER SIDE. CALM AND COOPERATIVE WITH CARE AND ASSESSMENT. NO SIGNS OF AGGRESSION. REDIRECT AND REORIENT NEEDED. CONTINUES TO SIT QUIETLY IN RECLINER. CONTINUE PLAN OF CARE
[2019-04-16 20:21] VITALS: BP 137/63
[2019-04-17 08:34] VITALS: BP 109/92
--- NOTE | 2019-04-17 09:45 | NUR ---
PT AM MEDS ADMINISTERED. PT SITTING UP IN DAY ROOM AT THIS TIME. WCTM.
--- NOTE | 2019-04-17 15:25 | PN ---
PATIENT:ESTELA DODD MEDICAL RECORD: [id number] LOCATION:[facility] ADMISSION DATE: 04/02/19 PROGRESS NOTE DATE OF SERVICE: 04/16/2019 SUBJECTIVE: The patient's case was discussed with staff. She has no new complaint. OBJECTIVE: The patient denies intent to harm herself or others. She is tolerating her medicines well. ASSESSMENT: No change in diagnoses. PLAN: Brief supportive and educational interventions were made. Long-term prognosis is guarded. TRANSINT:[id number] Voice Confirmation ID: [id number] DOCUMENT ID: [id number] FELICIA JOE MD at 1525 CC: [id number] DICTATION DATE: 04/16/19 1530 SUSTAINABILITY PROJECT COORDINATOR: 04/16/19 1632 ADM IN [place] [id number] [place] [id number]
[2019-04-17 20:00] VITALS: BP 109/45
--- NOTE | 2019-04-18 00:52 | NUR ---
B) Patient is alert and oriented to self, very confused and yelling out at times, difficult with being changed I) Administered scheduled medications as ordered, monitored for safety and for needs, R) Medication compliant, no change from previous day P) Continue plan of care.
[2019-04-18 10:40] VITALS: BP 174/69
--- NOTE | 2019-04-18 11:53 | NUR ---
PATIENT IS ALERT AND ORIENTED TO SELF. PT IS VERY CONFUSED AND YELLS OUT AT TIMES. X3 ASSIST WITH ADLS. PT IS MED COMPLIANT, VITALS AND ADL'S. ABLE TO REDIRECT WHEN YELLING OUT. CHAIR ALARM IN PLACE AND ACTIVE. WILL CONT PLAN OF CARE.
--- NOTE | 2019-04-18 12:38 | NUR ---
TEAM TREATMENT REVIEW: DIET: Regular diet, ensure w/ meals PO INTAKE: 60% x 9 meals WT: 04/07-153.2lbs; 04/15-157.6lbs BM: x 1 on 04/16 MEDS: Vit B12, Megace, Imodium LABS: Chloride- 108, BUN- 38(H), Cr- 1.4(H), Mag-1.7(L) GOALS: PO intake >/= 75%, BM q 3 days, labs wnl Will continue to monitor closely Clinical Dietitian Following
--- NOTE | 2019-04-18 15:07 | PN ---
PATIENT:ESTELA DODD MEDICAL RECORD: [id number] LOCATION:[facility] ADMISSION DATE: 04/02/19 PROGRESS NOTE DATE OF SERVICE: 04/17/2019 SUBJECTIVE: The patient's case was discussed with staff. She has no new complaint. OBJECTIVE: The patient is in good behavioral control with limited insight about her condition. She is tolerating her medicines well. ASSESSMENT: Dementia. PLAN: The patient will be maintained on current medicines, which I have reviewed. Long-term prognosis is guarded. I would anticipate she can be transitioned out of the hospital soon if this level of improvement continues. TRANSINT:[id number] Voice Confirmation ID: [id number] DOCUMENT ID: [id number] FELICIA JOE MD at 1507 CC: [id number] DICTATION DATE: 04/17/19 1606 FREIGHT FORWARDER: 04/17/19 2307 ADM IN [facility] [address] [place] [address]
--- NOTE | 2019-04-18 17:55 | NUR ---
PATIENT CONTINUES TO YELL OUT AND CAN NOT BE REDIRECTED AT THIS TIME.
--- NOTE | 2019-04-18 18:05 | NUR ---
PATIENT IS VERY RESTLESS, YELLING OUT SCREAMING "HELP. HELP!" PT IS ATTEMPTING TO STAND AND FLAG DOWN OTHER PAIENTS SCREAMING. PT IS TUGGING ON HER HAIR PULLING STRANDS OUT. UNABLE TO REDIRECT AT THIS TIME. ATIVAN 0.5 MG IM GIVEN PER DR. JOE ORDER. WILL REASSESS Q 1 HOUR FOR EFFECTIVENESS.
[2019-04-18 20:14] VITALS: BP 141/73
--- NOTE | 2019-04-18 23:57 | NUR ---
REC'D SITTING IN THE DAYROOM. YELLING AT TIMES. REACHES DOWN TO FLOOR IF PICKING SOMETHING UP AND PUTTING IT TO HER MOUTH. ORIENTED TO SELF ONLY.DELUSIONAL BELIEVING SHE IS IN [place] TRYING TO MAKE ALITTLE EXTRA MONEY. SKIN TEAR TO LEFT UPPER ARM. ADMINISTER MEDS PER ORDERS Q SHIFT AND MONITOR COMPLIANCE. REORIENT Q SHIFT AND NEEDED. MED COMPLIANT. POOR REORIENTATION DUE TO IMPAIRED ABILITY TO PROCESS AND RETAIN INFORMATION. CONTINUE POC AND PROVIDE SAFE ENVIRONMENT.
--- NOTE | 2019-04-19 01:07 | NUR ---
B.) PT IS ALERT AND ORIENTED TO SELF ONLY. SHE DOES YELL BUT SHE IS UNAWARE THAT SHE IS YELLING. I.) REDIRECT AND REORIENT OFTEN NEEDED. PROVIDED PM MEDICATIONS. R.) PT OFTEN REMAINS CONFUSED DESPITE MULTIPLE ATTEMPTS. COMPLIANT WITH ALL MEDICATIONS. P.) CONTINUE PLAN OF CARE
--- NOTE | 2019-04-19 08:20 | NUR ---
PATIENT SITTING IN CHAIR AWAITING BREAKFAST. RESP EVEN AND NONLABORED. NO ACUTE DISTRESS NOTED. PT IS ALERT AND ORIENTED TO SELF ONLY. PT YELLS OUT AT TIMES UNAWARE SHE IS YELLING. PT IS COMPLIANT WITH MEDS, ASSESSMENTS AND VITALS. MAX ASSIST. CHAIR ALARM IN PLACE AND ACTIVE.
[2019-04-19 08:43] VITALS: BP 101/63
[2019-04-19 09:15] VITALS: BP 174/69
--- NOTE | 2019-04-19 16:02 | PN ---
PATIENT:ESTELA DODD MEDICAL RECORD: [id number] LOCATION:[facility] ADMISSION DATE: 04/02/19 PROGRESS NOTE DATE OF SERVICE: 04/18/2019 SUBJECTIVE: The patient's case was discussed with staff. She has no new complaint. OBJECTIVE: The patient seems significantly better than she was a week ago, although yesterday afternoon she did have some difficulty and was yelling some. That does seem to be better today. ASSESSMENT: Dementia. PLAN: Current medicines have been reviewed. I do think she is eating a little better with the addition of the Megace. Her long-term prognosis is guarded. TRANSINT:[id number] Voice Confirmation ID: [id number] DOCUMENT ID: [id number] FELICIA JOE MD at 1602 CC: [id number] DICTATION DATE: 04/18/19 1533 MULTIMEDIA DEVELOPER: 04/18/19 2255 ADM IN [place] [id number] [place] [id number]
--- NOTE | 2019-04-19 20:03 | NUR ---
PATIENT IS A LITTLE DEMANDING AT TIMES, EASILY AGITATED, HOLLERS OUT WHEN SHE NEEDS SOMETHING, COMPLIANT WITH MEDS. WILL FOLLOW POC
[2019-04-19 20:17] VITALS: BP 136/84
--- NOTE | 2019-04-20 12:44 | PN ---
PATIENT:ESTELA DODD MEDICAL RECORD: [id number] LOCATION:[facility] ADMISSION DATE: 04/02/19 PROGRESS NOTE DATE OF SERVICE: 04/19/2019 SUBJECTIVE: The patient's case was discussed with staff. She has no new complaint. OBJECTIVE: The patient is in good behavioral control. She is not yelling out as much as she had been. She is only oriented to person. ASSESSMENT: No change in diagnoses. PLAN: Supportive and educational interventions were made. Long-term prognosis is guarded. TRANSINT:[id number] Voice Confirmation ID: [id number] DOCUMENT ID: [id number] FELICIA JOE MD at 1244 CC: [id number] DICTATION DATE: 04/19/19 1606 NEGATIVE TURNER APPRENTICE: 04/19/19 191 ADM IN [facility] [address] [place] [address]
--- NOTE | 2019-04-20 19:35 | NUR ---
PATIENT LYING IN BED WITH EYES CLOSED. VERY LOUDLY SPOKEN WHEN AWAKE. DEMANDING AND IMPATIENT. WILL YELL UNTIL SHE GETS HER WAY. ORIENTED TO SELF AND PLACE. ADMINISTER MEDS PER ORDERS Q SHIFT AND MONITOR COMPLIANCE. REDIRECT FOR DISRUPTIVE BEHAVIOR. MED COMPLIANT. POOR REDIRECTION. WILL RELATE SHE IS NOT YELLING. ALSO TRIES TO GET OUT OF BED UNASSISTED IF STAFF IS NOT THERE IN THE TIME SHE FEELS THEY SHOULD. REMAINS DEMANDING AND DISRUPTIVE. CONTINUE POC AND PROVIDE SAFE ENVIRONMENT.
--- NOTE | 2019-04-20 22:30 | NUR ---
PATIENT TRYING TO CLIMB OUT OF BED. YELLING. ARGUMENTATIVE. WILL NOT REDIRECT. PRN HALDOL 2MG IM AND ATIVAN 0.5MG IM ADMINISTERED BY Zan MCKEON RN.
[2019-04-21 08:10] VITALS: BP 138/69
--- NOTE | 2019-04-21 11:29 | PN ---
PATIENT:ESTELA DODD MEDICAL RECORD: [id number] [facility] ADMISSION DATE: 04/02/19 PROGRESS NOTE DATE OF SERVICE: 04/20/2019 SUBJECTIVE: The patient's case was discussed with staff. She has no new complaint. OBJECTIVE: The patient is in good behavioral control with poor insight about her condition. She tolerates her medicines well. ASSESSMENT: No change in diagnoses. PLAN: Current medicines have been reviewed and will be maintained. Long-term prognosis is guarded. TRANSINT:[id number] Voice Confirmation ID: [id number] DOCUMENT ID: [id number] FELICIA JOE MD at 1129 CC: [id number] DICTATION DATE: 04/20/19 1310 ASPHALT PAVER OPERATOR: 04/20/19 1352 ADM IN [address] [address]
[2019-04-21] MEDS ORDERED: DONEPEZIL HCL10 MG PO (11:33)
[2019-04-21] MEDS ORDERED: ULTRAM50 MG PO (11:33)
[2019-04-21] MEDS ORDERED: Senokot TAB PO (11:34)
[2019-04-21] MEDS ORDERED: KLONOPIN0.5 MG PO (11:34)
[2019-04-21] MEDS ORDERED: GEODON20 MG PO (11:34)
[2019-04-21] MEDS ORDERED: FLORAJEN3 CAPS460 MG PO (11:34)
[2019-04-21] MEDS ORDERED: Megace ES [CHEMO] PO (11:35)
[2019-04-21] MEDS ORDERED: LEVOTHYROXINE75 MCG PO (11:35)
--- NOTE | 2019-04-21 14:13 | NUR ---
B) The patient is awake and she yells out and can be demanding. She is labile in mood. She is a total assist. I) Provide prescribed meds. R) The patient is compliant with meds with certain people. She says "No" but then she will take them whole. P) Continue POC.
[2019-04-21 20:00] VITALS: BP 146/72
--- NOTE | 2019-04-21 20:38 | NUR ---
RECEIVED IN DAYROOM. SITTING IN A RECLINING CHAIR. COOPERATIVE WITH CARE AND ASSESSMENT. YELLING OUT AT TIMES. REDIRECT AND REORIENT. CONTINUES SITTING IN RECLINER YELLING OUT AT TIMES. CONTINUE PLAN OF CARE
[2019-04-22 08:00] VITALS: BP 146/87
--- NOTE | 2019-04-22 09:46 | NUR ---
RECEIVED PT IN DINING ROOM FOR B'FAST, APPETITE FAIR, EATING APPROX HALF OF B'FAST, MEDS ADMIN PER ORDERS. OCCASIONALLY YELLS ALOUD, FOUL MOOD. CONT POC DIRECTED.
--- NOTE | 2019-04-22 13:45 | NUR ---
PATIENT TEARFUL, YELLING ALOUD, STATED SHE WAS MISSING HER . ATIVAN 0.5 MG TAB ADMIN PO FOR ANXIETY.
--- NOTE | 2019-04-22 15:00 | PN ---
PATIENT:ESTELA DODD MEDICAL RECORD: [id number] LOCATION:[facility] ADMISSION DATE: 04/02/19 PROGRESS NOTE DATE OF SERVICE: 04/21/2019 SUBJECTIVE: The patient's case was discussed with staff. She has no new complaint. OBJECTIVE: The patient is in good behavioral control with limited insight about her condition. She tolerates her medicines well. ASSESSMENT: No change in diagnoses. PLAN: The patient will be transitioned out of the hospital tomorrow. Her long-term prognosis is guarded. TRANSINT:[id number] Voice Confirmation ID: [id number] DOCUMENT ID: [id number] FELICIA JOE MD at 1500 CC: [id number] DICTATION DATE: 04/21/19 1136 MACHINE PRINTER: 04/21/19 1234 ADM IN [place] [address] [place] [address]
--- NOTE | 2019-04-22 15:44 | NUR ---
RESTING IN RECLINER AT THIS TIME, CALM, AWAKE. NO ANXIETY NOTED.
[2019-04-22 20:20] VITALS: BP 145/62
--- NOTE | 2019-04-22 21:15 | NUR ---
RECEIVEDIN DAYROOM. SITTING IN A RECLINER WITH STAFF AND PEERS AT HER SIDE. YELLING OUT AT TIMES. CALM AND COOPERATIVE WITH CARE AND ASSESSMENT. NO SIGNS OF AGGRESSION. REDIRECT AND REORIENT NEEDED. RESTING IN BED WITH EYES CLOSED AT THIS TIME. CONTINUE PLAN OF CARE
[2019-04-23 08:00] VITALS: BP 131/62
--- NOTE | 2019-04-23 09:24 | PN ---
PATIENT:ESTELA DODD MEDICAL RECORD: [id number] LOCATION:[facility] ADMISSION DATE: 04/02/19 PROGRESS NOTE DATE OF SERVICE: 04/22/2019 SUBJECTIVE: The patient's case was discussed with staff. She has no new complaint. OBJECTIVE: The patient is severely impaired cognitively but in good behavioral control. She was scheduled to go back to the group home today, but for various complicating reasons she cannot. She will be transitioned back to the group home tomorrow. TRANSINT:[id number] Voice Confirmation ID: [id number] DOCUMENT ID: [id number] FELICIA JOE MD at 0924 CC: [id number] DICTATION DATE: 04/22/19 1608 TRUCK DRIVER HEAVY: 04/22/192026 ADM IN [place] [id number] [place] [address]
--- NOTE | 2019-04-23 11:49 | NUR ---
RECEIVED PT IN DINING ROOM FOR B'FAST, ALERT, CALM, NO YELLING ALOUD AT THIS TIME. MEDS ADMIN PER ORDERS WITH COMPLETE MED COMPLIANCE NOTED. COOPERATIVE, CONT POC DIRECTED.
--- NOTE | 2019-04-23 13:10 | NUR ---
PATIENT BELONGINGS RETURNED TO PATIENT, PATIENT CLEAN AND DRY, ASSISTED TO EXIT DOOR, DISCHARGED FROM UNIT IN C/O [facility] STAFF. PATIENT ALERT AND CALM, NO S/S PAIN OR DISTRESS.
--- NOTE | 2019-04-23 13:14 | NUR ---
[facility] AND GIVEN TO JES[facility]S. ALL PAPERWORK FAXED AND COPY WILL BE SENT WITH PT AT TIME OF DISCHARGE.
--- NOTE | 2019-04-24 18:58 | PN ---
PATIENT:ESTELA DODD MEDICAL RECORD: [id number] LOCATION:[facility] ADMISSION DATE: 04/02/19 PROGRESS NOTE DATE OF SERVICE: 04/23/2019 SUBJECTIVE: The patient's case was discussed with staff. She has no new complaint. OBJECTIVE: The patient is in good behavioral control with very limited insight about her condition. ASSESSMENT: Dementia. PLAN: The patient is going to be transitioned out of the hospital today. [facility]. She currently has no evidence of acute or direct dangerousness. TRANSINT:[id number] Voice Confirmation ID: [id number] DOCUMENT ID: [id number] FELICIA JOE MD at 1858 CC: [id number] DICTATION DATE: 04/23/[address] JUSTICE: 04/23/19 1305 DIS IN 04/23/19 [place] [id number] [place] [address]
--- NOTE | 2019-04-30 12:36 | DS ---
PATIENT:ESTELA DODD :37 MEDICAL RECORD: [id number] DISCHARGE SUMMARY ADMISSION DATE: 04/02/19 DISCHARGE DATE: 04/23/19 IDENTIFYING DATA: The patient is 83 years old and she is admitted to the hospital on a voluntary basis. CHIEF COMPLAINT: Agitation. HISTORY OF PRESENT ILLNESS: The patient comes to us from a local shelter where she has been disruptive and agitated. She is clearly impaired and has no recollection of the events that precipitated the admission. She denies that she would seek to harm herself or others. HOSPITAL COURSE: The patient was admitted to the hospital and fully evaluated from both a medical, psychological, and social standpoint. She was treated with both mood stabilizing and memory enhancing medications. She showed improvement in her situation and was subsequently transitioned back to the shelter. PLAN: At the time of discharge, she was not acutely dangerous to herself or others and had no active thoughts of harming herself or others. DISCHARGE DIAGNOSES: AXIS I: Major neurocognitive disorder of the Alzheimer's type with behavioral disturbances. AXIS II: None. AXIS III: Hypercholesterolemia, hypothyroidism, and hypertension. AXIS IV: Moderate. AXIS V: Global assessment of functioning is 35. PLAN: At the time of discharge, the patient is in good behavioral control with limited insight about her condition. She tolerates her medicines well. Followup is to be with her primary care shelter physician. TRANSINT:[id number] Voice Confirmation ID: [id number] DOCUMENT ID: [id number] FELICIA JOE MD at 1236 CC: [id number] DICTATION DATE: 04/29/191721 FIRE PREVENTION BUREAU CAPTAIN: 04/30/19 0149 DIS IN 04/23/19 [facility] [address] [place] [address]
== END 2019-04-23 13:10 | DRG 57 ==
LOC: D.PSYCH 14:14
PROVIDERS: Family Medicine; ADMIT Psychiatry & Neurology Psychiatry; ATTEND Psychiatry & Neurology Psychiatry
DX: G30.9 Alzheimer's disease, unspecified (principal); F02.81 Dementia in other diseases classified elsewhere, unspecified severity, with behavioral disturbance; F33.1 Major depressive disorder, recurrent, moderate; I82.503 Chronic embolism and thrombosis of unspecified deep veins of lower extremity, bilateral; N39.0 Urinary tract infection, site not specified; Z68.1 Body mass index [BMI] 19.9 or less, adult; E78.00 Pure hypercholesterolemia, unspecified; E03.9 Hypothyroidism, unspecified; I10 Essential (primary) hypertension; E78.5 Hyperlipidemia, unspecified; M19.91 Primary osteoarthritis, unspecified site; K59.00 Constipation, unspecified; R26.9 Unspecified abnormalities of gait and mobility; R63.0 Anorexia; E86.0 Dehydration

== ENCOUNTER 2019-05-05 18:41 | Emergency (ER) | payer MEDICARE ==
[2019-04-03 11:18] VITALS: Ht 152.4 cm; Wt 63.6 kg
[~2019-05-05] VITALS: Ht 152.4 cm; Wt 63.6 kg
[~2019-05-05 18:41] MED LIST changes: +DONEPEZIL HCL10 MG PO; +ELIQUIS2.5 MG PO; +FLORAJEN3 CAPS460 MG PO; +FUROSEMIDE20 MG PO; +GEODON20 MG PO; +IMODIUM2 MG PO; +K-TAB10 MEQ PO; +LEVOTHYROXINE75 MCG PO; +Megace ES [CHEMO] PO; +SENNA LAXATIVE8.6 MG PO; +SYNTHROID175 MCG PO; +Senokot TAB PO; +ULTRAM50 MG PO; +VISTARIL25 MG PO
[2019-05-05 19:50] LABS: BASOPHILS 0.2 % (0-2); HEMOGLOBIN 12.7 g/dL (12-16); IMMATURE GRANULOCYTES 0.2 % (0-5); LYMPHOCYTES 27.1 % (15-50); MCH 29.4 pg (26.0-34.0); MCHC 34.3 g/dL (31.0-37.0); MCV 85.6 fL (80.0-100.0); MEAN PLATELET VOLUME 8.6 fL (7.4-10.4); MONOCYTES 9.2 % (2-11); NEUTROPHILS 61.3 % (40-80); PLATELET COUNT 248 10x3/uL (130-400); RBC 4.32 10x6/uL (4.00-5.40); RDW 15.6 % (11.5-14.5); WBC 10.3 10x3/uL (4.8-10.8)
[2019-05-05 19:55] LABS: APPEARANCE CLEAR (CLEAR); BILIRUBIN NEGATIVE (NEGATIVE); COLOR DK YELLOW (YELLOW); GLUCOSE NEGATIVE (NEGATIVE); KETONE NEGATIVE (NEGATIVE); NITRITE NEGATIVE (NEGATIVE); PROTEIN NEGATIVE (NEGATIVE); UROBILINOGEN NORMAL (NORMAL)
[2019-05-05 20:04] LABS: ALBUMIN 3.3 g/dL (3.4-5.0); ANION GAP 13.3 mmol/L (8-16); BILIRUBIN - TOTAL 0.29 mg/dL (0.2-1.3); CALCIUM 8.9 mg/dL (8.5-10.1); CARBON DIOXIDE 27.9 mmol/L (21.0-32.0); CREATININE - SERUM 1.9 mg/dL (0.6-1.3); POTASSIUM - SERUM 4.2 mmol/L (3.5-5.1); PROTEIN - SERUM 8.5 g/dL (6.4-8.2)
[2019-05-05 21:12] VITALS: BP 138/80
== END 2019-05-05 21:12 ==
LOC: D.ER 18:41
PROVIDERS: Emergency Medicine
DX: M25.561 Pain in right knee (principal); M25.562 Pain in left knee; W19.XXXA Unspecified fall, initial encounter; G30.9 Alzheimer's disease, unspecified; F02.80 Dementia in other diseases classified elsewhere, unspecified severity, without behavioral disturbance, psychotic disturbance, mood disturbance, and anxiety; I10 Essential (primary) hypertension

== ENCOUNTER 2019-06-20 11:23 | Emergency (ER) | payer MEDICARE ==
[~2019-06-20] VITALS: Ht 152.4 cm; Wt 45.5 kg
[2019-06-20 11:26] VITALS: Ht 152.4 cm; Wt 45.5 kg
[2019-06-20 12:28] LABS: BASOPHILS 0.3 % (0-2); EOSINOPHILS 1.6 % (0-7); HEMATOCRIT 38.1 % (36.0-48.0); HEMOGLOBIN 12.2 g/dL (12-16); MCH 29.2 pg (26.0-34.0); MCV 91.1 fL (80.0-100.0); MEAN PLATELET VOLUME 8.8 fL (7.4-10.4); MONOCYTES 7.5 % (2-11); NEUTROPHILS 56.6 % (40-80); RBC 4.18 10x6/uL (4.00-5.40); RDW 15.8 % (11.5-14.5)
[2019-06-20 12:30] LABS: PLATELET COUNT 411 10x3/uL (130-400)
[2019-06-20 12:33] LABS: APTT 31.6 SECONDS (22.8-39.4); INR 1.3 (0.85-1.17); PROTIME 15.6 SECONDS (11.6-15.0)
[2019-06-20 12:33] LABS: CALC OSMOLALITY 279 mosm/kg (275-300); CALCIUM 9.2 mg/dL (8.5-10.1); CARBON DIOXIDE 30.2 mmol/L (21.0-32.0); CHLORIDE - SERUM 105 mmol/L (98-107); CREATININE - SERUM 0.9 mg/dL (0.6-1.3); GLUCOSE 103 mg/dL (74-106); POTASSIUM - SERUM 4.1 mmol/L (3.5-5.1); SODIUM 141 mmol/L (136-145); UREA NITROGEN 11 mg/dL (7-18); eGFR NON AFRICAN AMERICAN 63 mL/min (90-120)
[2019-06-20 13:14] LABS: ALBUMIN 3.2 g/dL (3.4-5.0); ALKALINE PHOSPHATASE 80 U/L (46-116); ALT (SGPT) 15 U/L (10-68); BILIRUBIN - TOTAL 0.47 mg/dL (0.2-1.3); CKMB 7.5 U/L (0.0-3.6); CREATINE KINASE 445 UL (21-215); MAGNESIUM - SERUM 1.9 mg/dL (1.8-2.4); PROTEIN - SERUM 7.8 g/dL (6.4-8.2); THYROID STIMULATING HORMONE 5.22 uIU/mL (0.36-3.74); TROPONIN-I < 0.017 ng/mL (0.000-0.060)
[2019-06-20 13:42] LABS: APPEARANCE CLEAR (CLEAR); BACTERIA MODERATE /hpf (NEGATIVE); BILIRUBIN NEGATIVE (NEGATIVE); COLOR YELLOW (YELLOW); GLUCOSE NEGATIVE (NEGATIVE); KETONE NEGATIVE (NEGATIVE); MUCUS <1+ /lpf (NONE SEEN); NITRITE NEGATIVE (NEGATIVE); PROTEIN TRACE mg/dL (NEGATIVE); RED CELLS - URINE 0-5 /hpf (0-5); UROBILINOGEN NORMAL (NORMAL)
[2019-06-20] MEDS ORDERED: MACROBID100 MG PO (14:44)
[2019-06-20 15:30] VITALS: BP 141/69
== END 2019-06-20 15:25 | disposition home or self-care (01) ==
LOC: D.ER 11:23
PROVIDERS: Emergency Medicine
DX: N39.0 Urinary tract infection, site not specified (principal); F03.90 Unspecified dementia, unspecified severity, without behavioral disturbance, psychotic disturbance, mood disturbance, and anxiety

== ENCOUNTER 2019-11-08 15:44 | Inpatient (IN) | payer MEDICARE ==
[~2019-11-08 15:44] MED LIST changes: +MACROBID100 MG PO
[2019-11-08] MEDS ORDERED: KLONOPIN0.5 MG (17:13)
[2019-11-08] MEDS ORDERED: ZOLOFT50 MG (17:17)
[2019-11-08] MEDS ORDERED: KLONOPIN1 MG ×3 (17:19→17:21)
[2019-11-08] MEDS ORDERED: ELIQUIS2.5 MG (17:22)
[2019-11-08] MEDS ORDERED: BUSPAR 15 MG TA15 MG (17:23)
[2019-11-08] MEDS ORDERED: ATARAX 25 MG TA25 MG (17:24)
[2019-11-08 23:56] VITALS: BP 124/78; BMI 27.3
[2019-11-09 06:36] LABS: LDL-HDL RATIO 3.6 ratio (1.5-3.5); THYROID STIMULATING HORMONE 10.41 uIU/mL (0.36-3.74)
[2019-11-09 11:08] VITALS: Wt 65.5 kg
[2019-11-09 20:00] VITALS: BP 156/51
[2019-11-10 11:05] VITALS: BP 138/73
--- NOTE | 2019-11-10 14:09 | PSY ---
PATIENT NAME:ESTELA DODD MEDICAL RECORD: [id number] : 37 LOCATION:[facility] ADMISSION DATE: 11/08/19 ACCOUNT: [id number] PSYCHIATRIC EVALUATION DATE OF EVALUATION: 11/09/19 DATE OF SERVICE: 11/09/2019 IDENTIFYING DATA: The patient is an 84-year-old patient that is admitted to the hospital on a voluntary basis from local assisted facility. CHIEF COMPLAINT: Aggression and aggressive behavior with staff and residents. HISTORY OF PRESENT ILLNESS: The patient comes to us from a local assisted. She has been very disruptive and agitated. She is clearly very impaired and has no recollection of the events which have precipitated this admission. She denies that she would seek to harm herself or others. Her primary issue right now is that she is agitated with the person next to her. PAST MEDICAL HISTORY: Significant for hypercholesterolemia, hypothyroidism, vitamin D deficiency and hypertension. PAST PSYCHIATRIC HISTORY: Significant for a long established diagnosis of depression. She was hospitalized on this unit more than 2 years ago for that, she was hospitalized within the last year for increased agitation on this unit. FAMILY HISTORY: Noncontributory. ALLERGIES: BACLOFEN. MEDICATIONS: Megace 625 mg daily, aspirin 81 mg daily, Norvasc 10 mg daily, Zoloft 50 mg at bedtime, clonazepam 1 mg t.i.d., buspirone discontinued, Eliquis 2.5 mg, lorazeopam 0.5 every 2 hours prn for agitation or lorazepam 0.5 every 2 hours p.r.n. by mouth, Haldol 2 mg every 2 hours p.r.n. IM or p.o. for agitation and psychosis. MENTAL STATUS EXAMINATION: The patient is alert and oriented. Her general appearance is mildly disheveled. Her speech is soft, low tone, low volume. Her associations are loose. Her eye contact is fair. Her judgment and insight illustrates a poverty of thought. Her mood is depressed and anxious, easily agitated. Her affect is flat, narrow in range. No abnormal movements were noted such as any psychomotor retardation or agitation. Anxiety is moderate. Memory is poor for recent and remote events. The patient does not appear to be attending to visual or auditory hallucinations. Her assets are supportive family members. Her liabilities are limited insight. DIAGNOSTIC IMPRESSION: AXIS I: Major neurocognitive disorder of the Alzheimer's type with behavioral disturbances. AXIS II: None. AXIS III: Hypercholesterolemia, hypothyroidism and hypertension. AXIS IV: Moderate. AXIS V: Global assessment of functioning is 30. PLAN: At this time, the patient is admitted and is highly distressed and confused. She will be comprehensively evaluated from both a medical, psychological, and social standpoint. She will be treated with both mood stabilizing and memory enhancing medication and her long-term prognosis is guarded. Dictated By: Fela Newton APN I have interviewed/examined the above patient and agree with these documented findings. TRANSINT:[id number] Voice Confirmation ID: [id number] DOCUMENT ID: [id number] Dictated By: FELA NEWTON I have interviewed/examined the above patient and agree with these documented findings. FELICIA JOE MD at 1454 at 1409 CC: [id number] DICTATION DATE: 11/09/19 1402 AGRISCIENCE TECHNOLOGY INSTRUCTOR: 11/09/19 1433 [facility] IN [facility] [address] [place] [address]
[2019-11-10 20:00] VITALS: BP 150/71
--- NOTE | 2019-11-11 14:54 | PN ---
PATIENT:ESTELA DODD MEDICAL RECORD: [id number] LOCATION:[facility] ADMISSION DATE: 11/08/19 PROGRESS NOTE DATE OF SERVICE: 11/10/2019 SUBJECTIVE: Case was reviewed with staff. The patient is sitting in a wheelchair, quiet and not yelling at the present time. OBJECTIVE: The patient's general appearance is slightly disheveled. She is alert to person, disoriented to place, time and situation. Her speech is very soft, low tone, low volume. Her associations are loose. Her eye contact is fair. The patient has poverty of thought. It is difficult to direct at times. Her mood is depressed and anxious, easily agitated. Her affect is flat, narrow in range. No abnormal movements were identified. Anxiety is moderate. Memory is poor for recent and remote events. The patient does not appear to be attending to visual or auditory hallucinations. ASSESSMENT: Major neurocognitive disorder with behavioral. PLAN: Treatment plan was reviewed. Continue to monitor the patient's tolerance to medications and her dietary intake. Plan is to stabilize her mood, decrease her agitation and aggressive behavior and prepare her for return to her previous environment. Dictated By: Fela Newton APN I have interviewed/examined the above patient and agree with these documented findings. TRANSINT:[id number] Voice Confirmation ID: [id number] DOCUMENT ID: [id number] FELICIA JOE MD at 1454 at 1403 CC: [id number] DICTATION DATE: 11/10/19 1407 SENIOR VICE PRESIDENT & GENERAL COUNSEL: 11/10/19 1626 ADM IN [place] [address] [place] [address]
[2019-11-11 17:14] LABS: BASOPHILS 0.2 % (0-2); EOSINOPHILS 2.1 % (0-7); HEMATOCRIT 38.6 % (36.0-48.0); HEMOGLOBIN 12.1 g/dL (12-16); IMMATURE GRANULOCYTES 0.1 % (0-5); LYMPHOCYTES 30.8 % (15-50); MCH 28.5 pg (26.0-34.0); MCHC 31.3 g/dL (31.0-37.0); MCV 90.8 fL (80.0-100.0); MEAN PLATELET VOLUME 8.6 fL (7.4-10.4); MONOCYTES 6.3 % (2-11); NEUTROPHILS 60.5 % (40-80); PLATELET COUNT 424 10x3/uL (130-400); RBC 4.25 10x6/uL (4.00-5.40); RDW 14.5 % (11.5-14.5); WBC 9.4 10x3/uL (4.8-10.8)
[2019-11-11 17:40] LABS: ALBUMIN 3.3 g/dL (3.4-5.0); BILIRUBIN - TOTAL 0.27 mg/dL (0.2-1.3); CALCIUM 8.8 mg/dL (8.5-10.1); CARBON DIOXIDE 25.4 mmol/L (21.0-32.0); CREATININE - SERUM 0.9 mg/dL (0.6-1.3); POTASSIUM - SERUM 3.4 mmol/L (3.5-5.1); PROTEIN - SERUM 8.4 g/dL (6.4-8.2); THYROID STIMULATING HORMONE 4.72 uIU/mL (0.36-3.74)
[2019-11-11 19:58] VITALS: BP 134/81
--- NOTE | 2019-11-12 13:01 | PN ---
PATIENT:ESTELA DODD MEDICAL RECORD: [id number] LOCATION:[facility] ADMISSION DATE: 11/08/19 PROGRESS NOTE DATE OF SERVICE: 11/11/2019 SUBJECTIVE: The patient's case was discussed with staff. She has no new complaint. OBJECTIVE: The patient is in good behavioral control, but still not eating adequately. ASSESSMENT: Dementia. PLAN: The patient will be monitored for clinical changes associated with her current medicines. I am going to reduce the Klonopin significantly. TRANSINT:[id number] Voice Confirmation ID: [id number] DOCUMENT ID: [id number] FELICIA JOE MD at 1301 CC: [id number] DICTATION DATE: 11/11/19 1607 REHAB NURSING TECH: 11/11/19 1714 ADM IN [place] [id number] [place] [id number]
[2019-11-12 20:00] VITALS: BP 149/97
--- NOTE | 2019-11-13 10:50 | PN ---
PATIENT:ESTELA DODD MEDICAL RECORD: [id number] LOCATION:[facility] ADMISSION DATE: 11/08/19 PROGRESS NOTE DATE OF SERVICE: 11/12/2019 SUBJECTIVE: The patient's case was discussed with staff. She has no new complaint. OBJECTIVE: The patient is in good behavioral control. She has poor insight about her situation. She is tolerating her medicines well. ASSESSMENT: Dementia. PLAN: Brief supportive and educational interventions were made. Long-term prognosis is guarded. TRANSINT:[id number] Voice Confirmation ID: [id number] DOCUMENT ID: [id number] FELICIA JOE MD at 1050 CC: [id number] DICTATION DATE: 11/12/19 1331 MASTER AUTOMOTIVE TECHNICIAN: 11/12/19 1741 ADM IN [place] [id number] [place] [address]
[2019-11-13 23:41] VITALS: BP 126/61
--- NOTE | 2019-11-14 12:26 | PN ---
PATIENT:ESTELA DODD MEDICAL RECORD: [id number] LOCATION:[facility] ADMISSION DATE: 11/08/19 PROGRESS NOTE DATE OF SERVICE: 11/13/2019 SUBJECTIVE: The patient's case was discussed with staff. She has no new complaint. OBJECTIVE: The patient denies intent to harm herself or others. She tolerates her medicines well. ASSESSMENT: Dementia. PLAN: Brief supportive and educational interventions were made. Long-term prognosis is guarded. TRANSINT:[id number] Voice Confirmation ID: [id number] DOCUMENT ID: [id number] FELICIA JOE MD at 1226 CC: [id number] DICTATION DATE: 11/13/19 1640 PRINCIPAL ENGINEER: 11/13/19 1809 ADM IN [place] [id number] [place] [address]
[2019-11-14 13:18] VITALS: BP 140/60
[2019-11-14 20:00] VITALS: BP 135/69
[2019-11-15 09:38] VITALS: BP 129/50
[2019-11-15 20:00] VITALS: BP 164/75
[2019-11-16 09:20] VITALS: BP 157/73
--- NOTE | 2019-11-16 16:05 | PN ---
PATIENT:ESTELA DODD MEDICAL RECORD: [id number] LOCATION:[facility] ADMISSION DATE: 11/08/19 PROGRESS NOTE DATE OF SERVICE: 11/15/2019 SUBJECTIVE: The patient's case was discussed with staff. The staff states that she did receive a p.r.n. medication last night for agitation, reported that she has been better today. OBJECTIVE: The patient is eating and did sleep well last night. MENTAL STATUS EXAMINATION: General appearance is slightly disheveled. Her orientation is alert, oriented to person, disoriented to place, time and situation. Her speech is soft, low tone, low volume. She sporadically does yell out. Her associations are loose. Her eye contact is fair. Her thought and concentration is distracted. Her mood is depressed and anxious, easily agitated her and difficult to redirect. Her affect is flat narrow range. No abnormal movements noted at this time. Anxiety is mild to moderate. Memory poor for both recent and remote events. The patient does not appear to be attending to visual, auditory hallucinations. Impulsivity is high. ASSESSMENT: No change in previous note. PLAN: We will continue to monitor her tolerance to her medication change. We will monitor for mood and cognitive changes and behavioral changes. We will try to keep the patient safe to also decrease her agitation and her aggressive behavior. Dictated By: Fela Newton APN I have interviewed/examined the above patient and agree with these documented findings. TRANSINT:[id number] Voice Confirmation ID: [id number] DOCUMENT ID: [id number] FELICIA JOE MD at 1443 at 1605 CC: [id number] DICTATION DATE: 11/15/19 1423 COATER HELPER: 11/15/[address] [facility] [address] [place] [address]
[2019-11-16 20:00] VITALS: BP 146/71
[2019-11-17 08:44] VITALS: BP 140/56
--- NOTE | 2019-11-17 09:12 | PN ---
PATIENT:ESTELA DODD MEDICAL RECORD: [id number] LOCATION:[facility] ADMISSION DATE: 11/08/19 PROGRESS NOTE DATE OF SERVICE: 11/16/2019 SUBJECTIVE: The patient's case was discussed with staff. Staff reports that she seems to be doing better. She is very hard of hearing. Does yell out, does become easily agitated when her needs are not taken care of. OBJECTIVE: The patient is eating and did sleep 8-1/2 hours last night. Her general appearance is slightly disheveled. Her orientation is alert, oriented to person, disoriented to place, time, and situation. Her speech escalates. She has low tone. Her associations are loose. Her eye contact is fair. Thought and concentration is distracted, difficult at times to redirect. Her mood is depressed and anxious. Her affect is flat, narrow in range. No abnormal movements noted at this time. The patient does not appear to be attending to visual, auditory hallucinations or stimuli. Her impulsivity is high. ASSESSMENT: No change to previous note. PLAN: We will continue to monitor her tolerance to her medications. We will monitor her mood and cognitive change and behavioral change, strive to decrease her agitation and aggression and prepare her for discharge. Dictated By: Fela Newton APN I have interviewed/examined the above patient and agree with these documented findings. TRANSINT:[id number] Voice Confirmation ID: [id number] DOCUMENT ID: [id number] FELICIA JOE MD at 1444 at 0912 CC: [id number] DICTATION DATE: 11/16/19 1536 QUALITY ASSURANCE GROUP LEADER: 11/17/19 0042 ADM IN [facility] [address] [place] [address]
[2019-11-17 20:00] VITALS: BP 134/68
[2019-11-18 08:44] VITALS: BP 147/70
--- NOTE | 2019-11-18 14:43 | PN ---
PATIENT:ESTELA DODD MEDICAL RECORD: [id number] LOCATION:[facility] ADMISSION DATE: 11/08/19 PROGRESS NOTE DATE OF SERVICE: 11/14/2019 SUBJECTIVE: The patient's case was discussed with staff. She has no new complaint. OBJECTIVE: The patient is eating and sleeping well. She has been compliant with medications. Unfortunately, she has had some episodic yelling and has been difficult to redirect. She has not been aggressive. ASSESSMENT: Dementia. PLAN: The patient will be treated with Namenda at a dose of 2.5 mg twice daily. She will be monitored for clinical changes associated with the use of that medicine. TRANSINT:[id number] Voice Confirmation ID: [id number] DOCUMENT ID: [id number] FELICIA JOE MD at 1443 CC: [id number] DICTATION DATE: 11/14/19 1623 LOSS PREVENTION ASSOCIATE: 11/14/19 1632 ADM IN [place] [id number] [place] [address]
--- NOTE | 2019-11-18 14:44 | PN ---
PATIENT:ESTELA DODD MEDICAL RECORD: [id number] LOCATION:[facility] ADMISSION DATE: 11/08/19 PROGRESS NOTE DATE OF SERVICE: 11/17/2019 SUBJECTIVE: The patient's case was discussed with staff. The staff states that she continues to scream and yell out and is difficult to redirect. The patient is also very hard of hearing. OBJECTIVE: The patient slept 6.25 hours, is eating well. Her general appearance is slightly disheveled, disoriented to place, time and situation. Oriented to person and alert. Her speech is escalates. Her associations are loose. Her eye contact is fair. She has poverty of thought. Her mood is depressed and anxious, easily agitated. Her affect is flat, narrow in range. No tremors were noted. Her anxiety is moderate. Her memory is poor for both recent and remote events. The patient does not appear to be attending to any external stimuli. Her impulsivity is high. ASSESSMENT: No change in previous note. PLAN: We will continue to monitor her tolerance to her medication change. Continue to monitor her mood and cognitive changes and behavioral changes. We will try to keep the patient safe, decrease her agitation and her aggressive behavior. Dictated By: Fela Newton APN I have interviewed/examined the above patient and agree with these documented findings. TRANSINT:[id number] Voice Confirmation ID: [id number] DOCUMENT ID: [id number] FELICIA JOE MD at 1444 at 1232 CC: [id number] DICTATION DATE: 11/17/19 0911 ROSS CARRIER DRIVER: 11/17/19 1700 ADM IN [facility] [address] [place] [address]
[2019-11-18 20:25] VITALS: BP 143/65
--- NOTE | 2019-11-19 12:42 | PN ---
PATIENT:ESTELA DODD MEDICAL RECORD: [id number] LOCATION:[facility] ADMISSION DATE: 11/08/19 PROGRESS NOTE DATE OF SERVICE: 11/18/2019 SUBJECTIVE: The patient's case was discussed with staff. She has no new complaint. OBJECTIVE: The patient is eating reasonably well. She was quite agitated last night and received p.r.n. Haldol and Ativan because of her yelling. ASSESSMENT: Dementia. PLAN: The patient's Namenda is going to be increased to 5 mg twice daily. She will be monitored for clinical changes associated with the use of the medication. Her long-term prognosis is guarded. TRANSINT:[id number] Voice Confirmation ID: [id number] DOCUMENT ID: [id number] FELICIA JOE MD at 1242 CC: [id number] DICTATION DATE: 11/18/19 1603 RIB KNITTER: 11/18/19 2116 ADM IN [place] [id number] [place] [address]
[2019-11-19 20:40] VITALS: BP 139/70
[2019-11-20 08:54] VITALS: BP 130/78
--- NOTE | 2019-11-20 14:56 | PN ---
PATIENT:ESTELA DODD MEDICAL RECORD: [id number] LOCATION:[facility] ADMISSION DATE: 11/08/19 PROGRESS NOTE DATE OF SERVICE: 11/19/2019 SUBJECTIVE: The patient's case was discussed with staff. She has no new complaint. OBJECTIVE: The patient is withdrawn and does yell out at times. She has pretty limited insight about her situation. She is not over sedated. ASSESSMENT: Dementia. PLAN: Current medicines have been reviewed. I am going to resume a low dose of Klonopin at bedtime to assist with her anxiety. TRANSINT:[id number] Voice Confirmation ID: [id number] DOCUMENT ID: [id number] FELICIA JOE MD at 1456 CC: [id number] DICTATION DATE: 11/19/19 1520 CLOTH TRIMMER HAND: 11/19/19 1726 ADM IN [place] [id number] [place] [address]
[2019-11-20 19:55] VITALS: BP 130/68
[2019-11-21 09:36] VITALS: BP 135/58
--- NOTE | 2019-11-21 13:21 | PN ---
PATIENT:ESTELA DODD MEDICAL RECORD: [id number] LOCATION:[facility] ADMISSION DATE: 11/08/19 PROGRESS NOTE DATE OF SERVICE: 11/20/2019 SUBJECTIVE: The patient's case was discussed with staff. She has no new complaint. OBJECTIVE: The patient is in good behavioral control. She has poor insight. She is tolerating her medicines well. ASSESSMENT: Dementia. PLAN: Current medicines have been reviewed and will be maintained. I see no evidence of her developing an excessive amount of sedation at this point. TRANSINT:[id number] Voice Confirmation ID: [id number] DOCUMENT ID: [id number] FELICIA JOE MD at 1321 CC: [id number] DICTATION DATE: 11/20/19 1530 VARITYPE OPERATOR: 11/20/19 1738 ADM IN [place] [id number] [place] [address]
[2019-11-21 20:10] VITALS: BP 123/53
[2019-11-22 08:39] VITALS: BP 120/58
[2019-11-22 20:00] VITALS: BP 138/66
[2019-11-23 09:05] VITALS: BP 133/72
[2019-11-23 20:00] VITALS: BP 121/54
[2019-11-24 08:54] VITALS: BP 124/67
[2019-11-24 20:00] VITALS: BP 133/70
[2019-11-25 08:29] VITALS: BP 120/70
--- NOTE | 2019-11-25 14:02 | PN ---
PATIENT:ESTELA DODD MEDICAL RECORD: [id number] LOCATION:[facility] ADMISSION DATE: 11/08/19 PROGRESS NOTE DATE OF SERVICE: 11/21/2019 SUBJECTIVE: The patient's case was discussed with staff. She has no new complaint. OBJECTIVE: The patient is having some visual hallucinations. She has intermittent behavioral outbursts. She has almost no insight about this. She is very hard of hearing. ASSESSMENT: Dementia. PLAN: Current medicines have been reviewed and will be maintained. Long-term prognosis is guarded. TRANSINT:[id number] Voice Confirmation ID: [id number] DOCUMENT ID: [id number] FELICIA JOE MD at 1402 CC: [id number] DICTATION DATE: 11/21/19 1551 LACTATION SPECIALIST: 11/21/19 1627 ADM IN [facility] [address] [place] [address]
[2019-11-25] MEDS ORDERED: NAMENDA5 MG PO (17:20)
[2019-11-25] MEDS ORDERED: GEODON20 MG PO (17:20)
[2019-11-25] MEDS ORDERED: Senokot TAB PO (17:21)
[2019-11-25] MEDS ORDERED: K-TAB10 MEQ PO (17:21)
[2019-11-25] MEDS ORDERED: FUROSEMIDE20 MG PO (17:21)
[2019-11-25] MEDS ORDERED: KLONOPIN0.5 MG PO (17:21)
[2019-11-25] MEDS ORDERED: Megace ES [CHEMO] PO (17:22)
[2019-11-25] MEDS ORDERED: Vitamin D PO (17:22)
[2019-11-25] MEDS ORDERED: LEVOTHYROXINE100 MCG PO (17:22)
[2019-11-25 20:11] VITALS: BP 124/63
[2019-11-26 08:47] VITALS: BP 120/45
--- NOTE | 2019-11-26 15:01 | PN ---
PATIENT:ESTELA DODD MEDICAL RECORD: [id number] LOCATION:[facility] ADMISSION DATE: 11/08/19 PROGRESS NOTE DATE OF SERVICE: 11/25/2019 SUBJECTIVE: The patient's case was discussed with staff. She has no new complaint. OBJECTIVE: The patient is in good behavioral control. She has poor insight about her situation. She generally tolerates her medicines well. ASSESSMENT: Dementia. PLAN: The patient had been yelling earlier today. Now, it is better. She has gained 8 pounds since she was here. I have reviewed current medications and will maintain them. TRANSINT:[id number] Voice Confirmation ID: [id number] DOCUMENT ID: [id number] FELICIA JOE MD at 1501 CC: [id number] DICTATION DATE: 11/25/19 164 JEWEL BEARING FACER: 11/25/19 1724 DIS IN 11/26/19 [facility] [address] [place] [address]
== END 2019-11-26 11:15 | DRG 57 ==
LOC: D.PSYCH 15:44
PROVIDERS: ADMIT Psychiatry & Neurology Psychiatry; ATTEND Psychiatry & Neurology Psychiatry
DX: G30.1 Alzheimer's disease with late onset (principal); F02.81 Dementia in other diseases classified elsewhere, unspecified severity, with behavioral disturbance; E78.00 Pure hypercholesterolemia, unspecified; E03.9 Hypothyroidism, unspecified; I10 Essential (primary) hypertension; E78.5 Hyperlipidemia, unspecified; M19.90 Unspecified osteoarthritis, unspecified site; K59.00 Constipation, unspecified; R26.89 Other abnormalities of gait and mobility; E55.9 Vitamin D deficiency, unspecified; F41.8 Other specified anxiety disorders; R63.0 Anorexia; Z68.27 Body mass index [BMI] 27.0-27.9, adult

== ENCOUNTER 2020-03-25 17:55 | Inpatient (IN) | payer MEDICARE ==
[~2020-03-25] VITALS: Ht 165.1 cm; Wt 71.9 kg
[~2020-03-25 17:55] MED LIST changes: +ATARAX 25 MG TA25 MG; +BUSPAR 15 MG TA15 MG; +ELIQUIS2.5 MG; +KLONOPIN0.5 MG; +KLONOPIN1 MG; +LEVOTHYROXINE100 MCG PO; +Vitamin D PO; +ZOLOFT50 MG
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
[2020-03-25] MEDS ORDERED: BUSPAR10 MG PO (18:31)
[2020-03-25] MEDS ORDERED: KLONOPIN0.5 MG PO (18:31)
[2020-03-25] MEDS ORDERED: VITAMIN B-12500 MCG (18:40)
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
[2020-03-25] MEDS ORDERED: LASIX20 MG PO (18:42)
[2020-03-25] MEDS ORDERED: ELIQUIS2.5 MG PO (18:42)
[2020-03-25] MEDS ORDERED: DEPAKOTE SPRIN125 MG PO (18:42)
[2020-03-25] MEDS ORDERED: SYNTHROID125 MCG PO (18:43)
[2020-03-25] MEDS ORDERED: NAMENDA10 MG PO (18:43)
[2020-03-25] MEDS ORDERED: EX-LAX15 MG (18:47)
[2020-03-25 19:16] VITALS: BP 122/62; BMI 24.5
--- NOTE | 2020-03-25 20:32 | NUR ---
RECEIVED PATIENT IN HER ROOM, PATIENT IS SCREAMING LEAVE ME ALONE, GET OUT OF MY ROOM. SHE WAS NOT ABLE TO BE CONSOLED IN ANY WAY SHE WAS GIVEN HALDOL AND ATIVAN PRIOR TO MY SHIFT WITHOUT ANY RESULTS. SHE WAS GEODON 20MG IM PER CHARGE NURSE, SAMRA COTTO. GOOD RESULTS AT THIS TIME. WILL CONTINUE TO MONITOR. SHE IS RESTING QUIETLY.
[2020-03-26 07:18] LABS: BASOPHILS 0.3 % (0-2); EOSINOPHILS 3.7 % (0-7); HEMOGLOBIN 12.8 g/dL (12-16); IMMATURE GRANULOCYTES 0.2 % (0-5); LYMPHOCYTES 46.6 % (15-50); MCH 29.6 pg (26.0-34.0); MCHC 32.8 g/dL (31.0-37.0); MCV 90.1 fL (80.0-100.0); MEAN PLATELET VOLUME 9.3 fL (7.4-10.4); MONOCYTES 11.3 % (2-11); NEUTROPHILS 37.9 % (40-80); RBC 4.33 10x6/uL (4.00-5.40); WBC 6.5 10x3/uL (4.8-10.8)
[2020-03-26 07:20] LABS: PLATELET COUNT 245 10x3/uL (130-400)
[2020-03-26 07:38] LABS: LDL-HDL RATIO 2.7 ratio (1.5-3.5)
--- NOTE | 2020-03-26 09:06 | NUR ---
SCREAMING ,YELLING OUT.WILL NOT REDIRECT.GEODON 20MG IM TO RT.DELTOID GIVEN.IS IN ISOLATION WAITING FOR RESULTS OF COVID 19 TEST.CALL VARGAS IN EASY REACH,BED IN LOW POSITION.
--- NOTE | 2020-03-26 09:10 | NUR ---
CONTINUES TO YELL OUT LOUDLY," I NEED HELP".WHEN YOU ASK WHAT SHE NEEDS SHE YELLS SHE WANTS TO GO HOME.POOR RESPONSE TO DARIUS.
[2020-03-26 11:18] VITALS: Ht 165.1 cm; Wt 71.9 kg
--- NOTE | 2020-03-26 14:00 | NUR ---
HAS REFUSED MEDS BUT IS MUCH CALMER ND QUIETER NOW.SLEPT ABOUT 3 HOURS THIS AM AFTER GEODON GIVEN.
[2020-03-26 20:09] VITALS: BP 130/67
--- NOTE | 2020-03-27 06:48 | NUR ---
PT. RESTED THROUGH THE NIGHT, NO ISSUES, COMPLIANT WITH MEDS. NO PRN REQUIRED ON THIS SHIFT. WILL FOLLOW POC
--- NOTE | 2020-03-27 10:41 | NUR ---
The patient is awake, but she is irritable. First she did not want to get up and she screamed "I don't want to get up." She is trying to roll around, but she rolls onto other people. She refused her am meds. Tried to talk her into it, but she was adamant that she did not want them. She is [place] and has poor insight into her situation. She self propels in a w/c but she also rolls onto people's feet. She yells at people and gets irritable with staff and peers. She has not shown any aggression today, but she is verbal and tells staff that they are stupid and this place is stupid. Continue POC.
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
--- NOTE | 2020-03-27 14:39 | NUR ---
DAUGHTER CALLED TO CHECK ON HER MOTHER. KENIA RIANACACIA THE DAUGHTER DAUGHTER MIGHT COME TO VISITATION. PASSCODE GIVEN. SHE WANTS TO COME TO SEE HER TOMORROW. SHE STATED SHE HAD NOT SEEN HER SINCE SEP DUE TO COVID. SHE IS LOOKING FORWARD TO SEEING HER. NURSE EXPLAINED THE NEW RULES TO HER IN TERMS OF COVID-19.
[2020-03-27 16:17] VITALS: BP 129/70
--- NOTE | 2020-03-27 17:49 | NUR ---
The patient continues to yell and yell and ask questions about her bed and where her clothes are. She is not able to hear and staff have to deepen their voice so she can hear minimally. Continue to monitor.
--- NOTE | 2020-03-27 18:09 | NUR ---
The patient is picking at the scabs on her body and she picks them off and MHT's said they saw her eat them. Will monitor her behavior.
[2020-03-27 19:57] VITALS: BP 132/75
--- NOTE | 2020-03-27 21:14 | NUR ---
B.) PT IS ALERT AND ORIENTED TO SELF ONLY. SHE IS CALM AND COOPERATIVE WITH STAFF. SHE IS VERY HARD OF HEARING. SHE IS OBSERVED SOCIALIZING WITH STAFF AND PEERS. SHE USES A WHEELCHAIR TO ASSIST WITH AMBULATION. I.) PROVIDED PM MEDICATIONS PRESCRIBED. REDIRECT NEEDED. R.) COMPLIANT WITH ALL MEDICATIONS. EASY TO REDIRECT. P.) WILL CONTINUE TO MONITOR.
[2020-03-28 10:10] VITALS: BP 128/56
--- NOTE | 2020-03-28 10:49 | NUR ---
The patient is calm this am, she is in a w/c and she self propels, she is a total assist and she can not hear so she yells and to communicate back to her you need to yell, it is difficult to communicate with her. She has not shown any aggression this am. Provide prescribed meds. The patient is compliant with medication. Continue POC.
--- NOTE | 2020-03-28 17:12 | NUR ---
Dr. Spann assessed the patient's ears and she says she has some ear wax in both ears, she plans to order debrox and then have staff irrigate her ears to see if there will be an improvement with her hearing or if it is related to to her dementia.
[2020-03-28 20:00] VITALS: BP 140/63
--- NOTE | 2020-03-28 21:51 | NUR ---
B.) PT IS ALERT AND ORIENTED TO SELF ONLY. SHE HAS POOR INSIGHT INTO HER SITUATION. SHE USES A WHEELCHAIR TO ASSIST WITH AMBULATION. SHE IS AGGITATED THIS EVENING. I.) PROVIDED PM MEDICATIONS PRESCRIBED. REDIRECT NEEDED. R.) COMPLIANT WITH ALL MEDICATIONS. DIFFICULT TO REDIRECT AT TIMES. P.) WILL CONTINUE TO MONITOR.
--- NOTE | 2020-03-29 10:58 | NUR ---
RECEIVED IN HALLWAY OUTSIDE OF NURSES STATION. CALM AND COOPERATIVE WITH CARE AND ASSESSMENT. VERY HARD OF HEARING. REFUSED MORNING MEDICATIONS. REFUSED VITAL SIGNS THIS MORNING. ATTEMPTING TO HIT STAFF. REDIRECT AND REORIENT NEEDED. SITTING IN GROUP AT THIS TIME. CONTINUE PLAN OF CARE.
--- NOTE | 2020-03-29 19:45 | NUR ---
RECEIVED IN DAYROOM SITTING IN A CHAIR WITH PEERS AT HER SIDE. CALM AND COOPERATIVE WITH CARE AND ASSESSMENT. NO SIGNS OF AGGRESSION. REDIRECT AND REORIENT NEEDED. CONTINUES TO SIT CALMLY IN DAYROOM. CONTINUE PLAN OF CARE.
[2020-03-29 20:00] VITALS: BP 116/67
[2020-03-30 08:54] VITALS: BP 120/72
--- NOTE | 2020-03-30 12:00 | NUR ---
RECEIVED IN HALLWAY OUTSIDE OF NURSES STATION. CALM AND COOPERATIVE WITH CARE AND ASSESSMENT. VERY [place]. NO AGGRESSIVE BEHAVIORS TODAY. REDIRECT AND REORIENT NEEDED. EATING AT THIS TIME. CONTINUE PLAN OF CARE.
--- NOTE | 2020-03-30 14:25 | NUR ---
Nutrition Follow-up: PO intake fluctuating; overall fair PO intake. Diet: Regular PO intake: 62% avg x 9 meals Wt: 149# (03/29); 147# (03/25) Labs reviewed Meds noted: vitamin D, vitamin B12, Lasix -Encourage PO intake and honor food preferences. -Offer nutrition supplements. -Monitor wt. -RD following.
--- NOTE | 2020-03-30 19:32 | NUR ---
RECEIVED IN DAYROOM. SITTING IN A CHAIR WITH PEERS AT HER SIDE. CALM AND COOPERATIVE WITH CARE AND ASSESSMENT. NO SIGNS OF AGGRESSION. REDIRECT AND REORIENT NEEDED. CONTINUES TO SIT CALMLY IN DAYROOM. CONTINUE PLAN OF CARE.
[2020-03-30 20:06] VITALS: BP 142/89
[2020-03-30 20:12] VITALS: BP 132/70
[2020-03-31 09:31] VITALS: BP 107/87
--- NOTE | 2020-03-31 09:50 | PN ---
PATIENT:ESTELA DODD MEDICAL RECORD: [id number] LOCATION:[facility] ADMISSION DATE: 03/25/20 PROGRESS NOTE DATE OF SERVICE: 03/30/2020 SUBJECTIVE: The patient's case was discussed with staff. She has no new complaint. OBJECTIVE: The patient is loud and demanding. I think part of that she is so hard of hearing she does not realize how much she is yelling. At the same time, she is partially oriented and she has not been aggressive today nor has she received any p.r.n. medication today. I have reviewed her current medications and will maintain them. I would want at least a couple more days of compliant behavior to feel comfortable sending her back to the assisted. I think the explanation of this is that the assisted had discontinued medications that she had been on. ASSESSMENT: Dementia. PLAN: Current medicines and therapies have been reviewed and will be maintained. TRANSINT:[id number] Voice Confirmation ID: [id number] DOCUMENT ID: [id number] FELICIA JOE MD at 0950 CC: [id number] DICTATION DATE: 03/30/20 1525 TECHNICAL DIRECTOR: 03/30/20 2230 ADM IN [facility] [address] [id number]
--- NOTE | 2020-03-31 13:34 | NUR ---
RECEIVED IN HALLWAY OUTSIDE OF NURSES STATION. CALM AND COOPERATIVE WITH CARE AND ASSESSMENT. VERY [place]. CONFUSED. COMBATIVE WITH CARE. REDIRECT AND REORIENT NEEDED. SITTING IN GROUP AT THIS TIME. CONTINUE PLAN OF CARE.
[2020-03-31 20:43] VITALS: BP 143/55
--- NOTE | 2020-04-01 12:00 | NUR ---
RECEIVED IN HALLWAY OUTSIDE OF NURSES STATION. CALM AND COOPERATIVE WITH ASSESSMENT. AGGRESSIVE WITH CARE. REDIRECT AND REORIENT NEEDED. EATING AT THIS TIME. CONTINUE PLAN OF CARE.
--- NOTE | 2020-04-01 13:28 | NUR ---
NUTRITION FOLLOW UP: COMMENTS: Patient eating well and tolerating diet. Patient has been eating snacks as well. No nutritional supplements at this time. Patient has not had a BM since 03/24. Patient has experienced a 2 lb wt gain. DIET: Regluar Diet SUPPLEMENT: None at this time PO INTAKE: 78% avg for last 9 meals WEIGHT: 03/26- 147 lbs; 03/29- 149 lbs BM: x 1 on 03/24 SIG MEDS: Vit D, Lasix, Vit B12, Synthroid SIG LABS: No new labs since 03/26. Vit D-27.4(L), Total Chol-218(H), LDL-147(H) RECOMMENDATIONS: -Continue current diet as tolerated -Offer nutritional supplements if po intake becomes < 50% avg for meals -Recommend laxative/stool softener for constipation RD to continue to follow and monitor patient DHS
--- NOTE | 2020-04-01 14:05 | NUR ---
PATIENT YELLING. HITTING STAFF. BANGING ON TABLES. UNCOOPERATIVE WITH CARE. BEING DISRESPECTFUL TO OTHER PATIENTS. MICHEAL MCCOY IM GIVEN.
--- NOTE | 2020-04-01 14:35 | PN ---
PATIENT:ESTELA DODD MEDICAL RECORD: [id number] LOCATION:[facility] ADMISSION DATE: 03/25/20 PROGRESS NOTE DATE OF SERVICE: 03/31/2020 SUBJECTIVE: The patient's case was discussed with staff. She has no new complaint. OBJECTIVE: She is sleeping adequately and her behaviors have improved. She is not showing evidence of excessive sedation. She is much less irritable. ASSESSMENT: Dementia. PLAN: Current medicines have been reviewed and will be maintained. The relative risks and benefits of treatment have been considered, and given her improvement, they do seem to be helping. If this level of improvement continues, she can be returned to the intermediate soon. TRANSINT:[id number] Voice Confirmation ID: [id number] DOCUMENT ID: [id number] FELICIA JOE MD at 1435 CC: [id number] DICTATION DATE: 03/31/20 1525 KNITTING TESTER: 03/31/20 2345 ADM IN [id number] [place] [address]
--- NOTE | 2020-04-01 15:00 | NUR ---
MICHEAL MCCOY INEFFECTIVE. PATIENT STILL YELLING AND BEING COMBATIVE WITH STAFF.
[2020-04-01 20:37] VITALS: BP 131/66
--- NOTE | 2020-04-02 00:22 | NUR ---
B) Patient is alert and oriented to person, very [place], yell out at times, difficult to communicate with I) Administered scheduled medications as ordeered, monitored for safety R) Mediation compliant, sleeping now quietly P) Continue plan of care,
--- NOTE | 2020-04-02 07:53 | NUR ---
The patient was assisted up by three staff, two to stand her and one to pull her pants up. The patient screamed and yelled and swatted at staff saying "Quit, stop that." She does not like to get up in the mornings and she yells for a little bit. She is not stand and assist staff, although, she is able. She was wet and she is incontinent at times. She is in a w/c and she can self propel. Provide prescribed meds. Monitor her behavior. Continue POC.
[2020-04-02 09:22] VITALS: BP 146/66
--- NOTE | 2020-04-02 12:16 | PN ---
PATIENT:ESTELA DODD MEDICAL RECORD: [id number] LOCATION:[facility] ADMISSION DATE: 03/25/20 PROGRESS NOTE DATE OF SERVICE: 04/01/2020 SUBJECTIVE: The patient's case was discussed with staff. She has no new complaint. OBJECTIVE: The patient has been disruptive, agitated, and threatening. She has required p.r.n. medication because of this agitation today. ASSESSMENT: Dementia. PLAN: I am going to change the patient's Geodon to a scheduled dose of Seroquel in an attempt to control these behaviors. She had shown several days of improvement up until today. I regret this change, but it is going to require additional hospitalization before she will be ready to [facility]. TRANSINT:[id number] Voice Confirmation ID: [id number] DOCUMENT ID: [id number] FELICIA JOE MD at 1216 CC: [id number] DICTATION DATE: 04/01/20 1501 GRAPHICS COORDINATOR: 04/02/20 0011 ADM IN [id number] [place] [address]
--- NOTE | 2020-04-02 17:05 | PN ---
PATIENT:ESTELA DODD MEDICAL RECORD: [id number] LOCATION:[facility] ADMISSION DATE: 03/25/20 PROGRESS NOTE DATE OF SERVICE: 04/02/2020 SUBJECTIVE: The patient's case was discussed with staff. She has no new complaint. OBJECTIVE: The patient has been loud and demanding today. She has not been aggressive in a way that is required p.r.n. medication. ASSESSMENT: Dementia. PLAN: The patient will be maintained on current medicines. The scheduled doses of Seroquel were just started yesterday. TRANSINT:[id number] Voice Confirmation ID: [id number] DOCUMENT ID: [id number] FELICIA JOE MD at 1705 CC: [id number] DICTATION DATE: 04/02/20 1229 MARINE FIRER: 04/02/20 1424 ADM IN [id number] [place] [address]
--- NOTE | 2020-04-02 18:17 | NUR ---
PT YELLING UPSET THAT SHE COULD NOT GET PIZZA FOR DINNER. STAFF ATTEMPTED TO REDIRECT PT TO EAT MEAL PRESENTED. PT ATTEMPTED TO HIT ANOTHER MALE PT. STAFF REDIRECTED BEHAVIOR. PT BEGIN YELLING, CURSING AND HITTING AT STAFF. HALDOL 2 MG AND ATIVAN 0.[address] JOE ORDER. WILL CONT TO MONITOR FOR EFFECTIVENES.
[2020-04-02 20:32] VITALS: BP 123/69
--- NOTE | 2020-04-02 22:42 | NUR ---
RECEIVED PATIENT IN DAYROOM, SHE IS A LITTLE INTRUSIVE AT TIMES, EXTREMELY HARD OF HEARING. SHE CAN VOICE ALL NEEDS AND CONCERNS VERY WELL, SHE IS COMPLIANT WITH HER MEDS. SHE IS A LOT CALMER COMPARED TO HER ADMISSION.
[2020-04-03 08:52] VITALS: BP 146/96
--- NOTE | 2020-04-03 09:05 | NUR ---
The patient is yelling and trying to hit at staff. She is telling everyone they are ignorant and she is getting in the trash, she is yelling so loud that she is upsetting the unit milieu. Ativan 0.5 mg IM in right deltoid.
--- NOTE | 2020-04-03 10:21 | NUR ---
The patient is not yelling as much, she is calming down for a short time. She is in a w/c and she can self propel. She is [place] and she yells to communicate. Provide prescribed meds. The patient is compliant with meds. She has poor insight into her situation. Provide prescribed meds. The patient is compliant with meds. Continue POC.
--- NOTE | 2020-04-03 19:30 | NUR ---
RECEIVED PATIENT IN DAYROOM, SHE IS ROLLING AROUND IN HER WHEELCHAIR, TALKING VERY LOUDLY, SHE'S A LITTLE AGITATED AT THIS TIME AND IS ASKING "WHAT'S HAPPENING NOW, WHAT'S GOING ON ?" REDIRECTING WHEN NEEDED, SHE CAN MAKE HER NEEDS KNOWN. WILL FOLLOW POC
[2020-04-03 20:00] VITALS: BP 125/65
[2020-04-04 09:12] VITALS: BP 138/73
--- NOTE | 2020-04-04 09:25 | NUR ---
NURSE SPOKE WITH PTS DAUGHTER. PASSCODE GIVEN. SHE WANTED TO KNOW HOW SHE WAS DOING AND IF WE COULD CLEAN HER EARS WHILE SHE WAS HERE. SHE STATED THAT [facility] WAS NOT DOING ANYTHING TO HELP WITH HER EARS SUCH A WASH OUT OR CLEANING. NURSE STATED STAFF HERE HAS ATTEMPTED TO GIVE HER EAR DROPS HERE. SHE WOULD NOT ALLOW STAFF AND FOUGHT STAFF. 2X STAFF WOULD HAVE TO ADMINISTER EAR DROPS. DAUGHTER STATED SHE WAS WORRIED THAT WOULD HAPPEN AND THAT SHE COULD SEE THAT HAPPENING WITH HER MOTHER. DAUGHTER STATED WHAT WERE WE GOING TO DO AOBOUT HER NOT BEING ABLE TO GO BACK TO [facility]. NURSE STATED SHE WAS NOT AWARE OF THAT BUT THAT [facility] TO[facility] DEVELOPER COULD BE AWARE. NURSE WOULD RELAY THE MESSAGE TO HER AND ON MONDAY SHE COULD GIVE HER A CALL AND SEE WHAT THE PLAN WOULD BE FOR FUTURE PLACEMENT. SHE VERBALIZIED UNDERSTANDING. DAUGHTER WANTED TO KNOW IF SHE COULD COME SEE HER AT VISITATION TODAY. NURSE STATED THAT WOULD BE FINE. TODAY IS VISITATION. SHE STATED SHE WOULD CALL PRIOR TO VISITATION STATING SHE DID WANT TO UPSET HER MORE IF SHE WAS ALREADY AGITATED WITH HER NOT BEING ABLE TO HEAR HER. NURSE VERBALIZIED UNDERSTANDING.
[2020-04-04 19:29] VITALS: BP 142/59
--- NOTE | 2020-04-04 19:35 | NUR ---
RECEIVED PATIENT IN DAYROOM, SHE IS LOUD, LITTLE ANXIOUS, ASKING WHERE AM I AND WHERE AM I GOING TO SLEEP? SHE IS CONFUSED. COMPLIANT WITH MEDS. WILL FOLLOW POC
[2020-04-05 09:28] VITALS: BP 120/75
--- NOTE | 2020-04-05 12:00 | NUR ---
RECEIVED IN HALLWAY OUTSIDE OF NURSES STATION. CALM AND COOPERATIVE WITH CARE AND ASSESSMENT. RESISTIVE WITH CARE AT TIMES. NO AGGRESSION. REDIRECT AND REORIENT NEEDED. EATING AT THIS TIME. CONTINUE PLAN OF CARE.
[2020-04-05 18:51] VITALS: BP 125/68
--- NOTE | 2020-04-05 19:17 | NUR ---
RECEIVED IN HALLWAY. SITTING OUTSIDE AT NURSES STATION WITH PEERS AT HER SIDE. TALKS LOUDLY. VERY HARD OF HEARING. CALM AND COOPERATIVE WITH CARE AND ASSESSMENT. NO SIGNS OF AGGRESSION. REDIRECT AND REOREINT NEEDED. RESTING IN BED WITH EYES CLOSED AT THIS TIME. CONTINUE PLAN OF CARE.
--- NOTE | 2020-04-05 21:32 | NUR ---
INREASING ANXIETY. YELLING OUT LOUDLY FOR BED. PRN ATIVAN 0.5 MG IM GIVEN FOR ANXIETY.
--- NOTE | 2020-04-06 02:12 | NUR ---
RESTING IN BED WITH EYES CLOSED.
[2020-04-06 08:34] VITALS: BP 135/63
--- NOTE | 2020-04-06 15:02 | NUR ---
RECEIVED IN HALLWAY OUTSIDE OF NURSES STATION. CALM AND COOPERATIVE WITH CARE AND ASSESSMENT. PATIENT IS RESISTIVE TO CARE AT TIMES BUT NO AGGRESSION. REDIRECT AND REORIENT NEEDED. SITTING IN GROUP AT THIS TIME. CONTINUE PLAN OF CARE.
--- NOTE | 2020-04-06 19:34 | NUR ---
RECEIVED IN DAYROOM. SITTING IN A WHEELCHAIR WITH PEERS AT HER SIDE. CALM AND COOPERATIVE WITH CARE AND ASSESSMENT. NO SIGNS OF AGGRESSION. REDIRECT AND REORIENT NEEDED. CONTINUES TO SIT CALMLY IN DAYROOM. CONTINUE PLAN OF CARE.
[2020-04-06 19:39] VITALS: BP 142/64
[2020-04-07 09:30] VITALS: BP 138/62
--- NOTE | 2020-04-07 09:56 | PN ---
PATIENT:ESTELA DODD MEDICAL RECORD: [id number] LOCATION:[facility] ADMISSION DATE: 03/25/20 PROGRESS NOTE DATE OF SERVICE: 04/06/2020 SUBJECTIVE: The patient's case was discussed with staff. She has no new complaint. OBJECTIVE: The patient denies that she would seek to harm herself or others. She has not been aggressive today. ASSESSMENT: Dementia. PLAN: Current medications have been reviewed and will be maintained. Her long-term prognosis is guarded. TRANSINT:[id number] Voice Confirmation ID: [id number] DOCUMENT ID: [id number] FELICIA JOE MD at 0956 CC: [id number] DICTATION DATE: 04/06/20 1444 AUTO PAINTER HELPER: 04/07/20 0009 ADM IN [address] [place] [address]
--- NOTE | 2020-04-07 12:00 | NUR ---
RECEIVED IN HALLWAY OUTSIDE OF NURSES STATION. VERY HARD OF HEARING. ANXIOUS. AGITATED. RUDE TO STAFF AND OTHER PATIENTS. COMBATIVE WITH CARE. REDIRECT AND REORIENT NEEDED. PRN ATIVAN PO AND HALDOL PO WITH MORNING MEDICATIONS. EATING AT THIS TIME. CONTINUE PLAN OF CARE.
--- NOTE | 2020-04-07 20:18 | NUR ---
NEW ADMIT TO DR JOE FROM MED/SURG RELATED TO AGGRESSION. RECEIVED VIA BED WITH STAFF AT HIS SIDE. CALM AND COOPERATIVE UPON ARRIVAL. ASSIST TO TRANSFERE TO OUR BED. NO SIGNS OF AGGRESSION AT THIS TIME. CONTINUES TO SIT CALMLY IN DAYROOM. CONTINUE PLAN OF CARE.
[2020-04-07 21:55] VITALS: BP 140/65
--- NOTE | 2020-04-08 08:33 | PN ---
PATIENT:ESTELA DODD MEDICAL RECORD: [id number] LOCATION:[facility] ADMISSION DATE: 03/25/20 PROGRESS NOTE DATE OF SERVICE: 04/07/2020 SUBJECTIVE: The patient's case was discussed with staff. She has no new complaint. OBJECTIVE: The patient has been agitated and received p.r.n. medication. She has limited insight about her situation. She is not wanting to hurt herself. The reason for the agitation is somewhat unknown. She is not really able to explain. ASSESSMENT: Dementia. PLAN: I am going to increase the patient's Seroquel to 100 mg daily in divided doses. If it is effective, I will look at consolidating the dose to a morning and evening schedule. TRANSINT:[id number] Voice Confirmation ID: [id number] DOCUMENT ID: [id number] FELICIA JOE MD at 0833 CC: [id number] DICTATION DATE: 04/07/20 1501 ASSOCIATE PROGRAM MANAGER: 04/08/20 0123 ADM IN [id number] [place] [address]
[2020-04-08 10:15] VITALS: BP 123/72
--- NOTE | 2020-04-08 10:59 | NUR ---
TOMÁS SPOKE WITH PT'S RAE SPIVEY, AND SHE STATED THE DISCHARGE PLAN WILL BE TO GO BACK TO [facility]. SHE DECLINED THE PT CHOICE FORM SERVICES.
--- NOTE | 2020-04-08 11:12 | NUR ---
SCREAMING AND YELLING OUT.WILL NOT REDIRECT.ATIVAN 0.5MG PO GIVEN FOR ANXIETY.
--- NOTE | 2020-04-08 11:19 | NUR ---
Nutrition Follow-up: Diet: Regular PO intake: ~84% average x last 9 meals Last BM: 04/06/20. Wt: 153# (04/05/20); Admit Wt: 147# (03/25/20) Meds noted: lasix. No new labs. Recommend continue current diet. RD following.
--- NOTE | 2020-04-08 12:00 | NUR ---
POOR RESPONSE TO ATIVAN.IS VERY CONFUSED.YELLS OUT I CAN'T HEAR YOU WHEN SPOKEN TO BUT REPORTS SHE CAN HEAR.NO AGGRESSION TOWARD STAFF OR PEERS OBSERVED.COMPLIANT WITH MEDS.IS INCONTINENT OF BOWEL AND BLADDER.WILL CONTINUE WITH CURRENT PLAN OF CARE.MONITOR FOR SAFETY AND CHANGES.
--- NOTE | 2020-04-08 15:22 | NUR ---
FORGETS THAT SHE CAN'T HEAR AND RESPONDS TO NORMAL VOICE LEVEL WHEN ASKED TO QUIT YELLING WITH A LOWER TONE.
[2020-04-08 20:38] VITALS: BP 133/64
--- NOTE | 2020-04-08 23:40 | NUR ---
RECEIVED IN DAYROOM, SITTING IN WHEELCHAIR. YELLS AT STAFF TO GO TO BED. CALM AND COOPERATIVE WITH ASSESSMENT AND CARE. REDIRECT AND REORIENT NEEDED. CONTINUES TO SIT QUIETLY IN W/C. ADMINISTERED MEDICATIONS ORDERED WITH COMPLIANCE. CONTINUE PLAN OF CARE.
[2020-04-09 08:16] VITALS: BP 156/78
--- NOTE | 2020-04-09 11:59 | NUR ---
VERY CONFUSED,ORIENTED TO SELF.YELLS OUT BUT IS CALMER TODAY.FORGETS SHE CAN'T HEAR AND RESPONDS APPROPRIATELY TO NORMAL VOICE LEVELS AT TIMES.IS COMPLIANT WITH STAFF AND MEDS.INCONTINENT OF BOWEL AND BLADDER.WILL CONTINUE WITH CURRENT PLAN OF CARE,MONITOR FOR CHANGES AND SAFETY.
--- NOTE | 2020-04-09 15:23 | PN ---
PATIENT:ESTELA DODD MEDICAL RECORD: [id number] LOCATION:[facility] ADMISSION DATE: 03/25/20 PROGRESS NOTE DATE OF SERVICE: 04/08/2020 SUBJECTIVE: The patient's case was discussed with staff. She has no new complaint. OBJECTIVE: The patient denies intent to harm herself or others. She is quite confused, but has been agitated, disruptive and aggressive with staff. ASSESSMENT: Dementia. PLAN: The patient is going to be started on Klonopin at a dose of 0.25 mg 3 times daily. Klonopin is being used in addition to the Seroquel to bring her behaviors under some sort of reasonable control. TRANSINT:[id number] Voice Confirmation ID: [id number] DOCUMENT ID: [id number] FELICIA JOE MD at 1523 CC: [id number] DICTATION DATE: 04/08/20 1606 COMMAND AND CONTROL: 04/09/20 0120 ADM IN [address] [place] [address]
[2020-04-09 19:38] VITALS: BP 121/56
[2020-04-09 20:42] VITALS: BP 108/54
--- NOTE | 2020-04-10 00:06 | NUR ---
B) Patient is alert and oriented to person, demanding and impatient, yelling out at times for attemtion, I) Administered scheduled medications as ordered, PRN Haldol 2 mg Im for anxiety at HS R) Mediation compliant, resting quietly in bed now, P) Continue plan of care.
--- NOTE | 2020-04-10 09:53 | NUR ---
PT SITTING AT TABLE AT THIS TIME. PT IS LUMMI, DEMANDING AND YELLS WHEN PT CAN NOT HEAR. PT IS ALERT AND ORIENTED TO SELF ONLY. CONFUSION NOTED. PT IS COMPLIANT WITH MEDS, VITALS AND ASSESSMENTS. PT REQUIRES 2X ASSISTANCE WITH ADLS. NO AGGRESSIVE BEHAVIORS NOTED. PT IS REDIRECTABLE. CHAIR ALARM IN PLACE AND ACTIVE. WILL CONT PLAN OF CARE.
--- NOTE | 2020-04-10 12:30 | PN ---
PATIENT:ESTELA DODD MEDICAL RECORD: [id number] LOCATION:[facility] ADMISSION DATE: 03/25/20 PROGRESS NOTE DATE OF SERVICE: 04/09/2020 SUBJECTIVE: The patient's case was discussed with staff. She has no new complaint. OBJECTIVE: The patient has been somewhat agitated and demanding, but actually better than she was yesterday. So far, the medication she has taken have not resulted in excessive sedation. ASSESSMENT: Dementia. PLAN: The patient will be treated with a higher dose of BuSpar. BuSpar is being used to treat her underlying anxiety symptoms. She will be monitored for clinical changes associated with it. TRANSINT:[id number] Voice Confirmation ID: [id number] DOCUMENT ID: [id number] FELICIA JOE MD at 1230 CC: [id number] DICTATION DATE: 04/09/20 1605 SHREDDING MACHINE OPERATOR: 04/09/20 1904 ADM IN [facility] [address] [place] [address]
[2020-04-10 20:00] VITALS: BP 120/61
--- NOTE | 2020-04-11 02:12 | NUR ---
B.) PT IS ALERT AND ORIENTED TO SELF ONLY. SHE IS VERY HARD OF HEARING AND YELLS AND AT TIMES IT BOTHERS THE OTHER PATIENTS. SHE USES A WHEELCHAIR TO PROPEL AROUND THE ROOM WHILE YELLING. I.) PROVIDED PM MEDICATIONS PRESCRIBED. REDIRECT NEEDED. R.) COMPLIANT WITH ALL MEDICATIONS. DIFFICULT TO REDIRECT SHE CANNOT HEAR ANYTHING SAID TO HER. P.) WILL CONTINUE TO MONITOR.
--- NOTE | 2020-04-11 08:49 | PN ---
PATIENT:ESTELA DODD MEDICAL RECORD: [id number] LOCATION:[facility] ADMISSION DATE: 03/25/20 PROGRESS NOTE DATE OF SERVICE: 04/10/2020 SUBJECTIVE: The patient's case was discussed with staff. She has no new complaint. OBJECTIVE: The patient has been yelling, but actually is better and less agitated today. ASSESSMENT: Dementia. PLAN: Current medicines will be maintained. Hopefully, she will continue to improve and can be transitioned back to the long term tomorrow. TRANSINT:[id number] Voice Confirmation ID: [id number] DOCUMENT ID: [id number] FELICIA JOE MD at 0849 CC: [id number] DICTATION DATE: 04/10/20 1403 DOG TRACK KENNEL MANAGER: 04/10/20 2338 ADM IN [address] [place] [address]
--- NOTE | 2020-04-11 09:45 | NUR ---
The patient yells and she is loud, she is an assist to get up out of bed. She is labile in affect. She is in a w/c and self propels. Provide prescribed meds. The patient needs much redirection as she is [place]. Continue POC.
[2020-04-11 19:57] VITALS: BP 128/65
--- NOTE | 2020-04-11 21:41 | NUR ---
B.) PT IS ALERT AND ORIENTED TO SELF ONLY. SHE IS YELLING OUT PER USUAL. SHE IS INTRUSIVE WITH OTHERS CARE. SHE IS DEMANDING AT TIMES. I.) PROVIDED PM MEDICATIONS. REDIRECT OFTEN. R.) COMPLIANT WITH ALL MEDICATIONS. UNABLE TO REDIRECT SHE CANNOT HEAR. P.) WILL CONTINUE TO MONITOR.
--- NOTE | 2020-04-12 08:06 | NUR ---
The patient is awake and she is screaming, she has a large audience of nursing students and she is acting out because she is getting a lot of extra attention. She has pulled the scabs off of her arms to get extra attention. Staff have cleansed her arms and applied bandaids. She is in a w/c and she can self propel but she is asking for the student nurses to push her and rub her back. She keeps screaming and telling some of the students and other patients off, telling one student she can't drive and one patient she stinks. Provide prescribed meds. The patient is compliant with meds. Continue POC.
--- NOTE | 2020-04-12 09:52 | NUR ---
YELLING OUT.RESTLESS,WILL NOT REDIRECT.ARGUMENTIVE.ATIVAN 0.5MG AND HALDOL 2MG PO GIVEN.
[2020-04-12 10:15] VITALS: BP 129/86
--- NOTE | 2020-04-12 11:59 | PN ---
PATIENT:ESTELA DODD MEDICAL RECORD: [id number] LOCATION:[facility] ADMISSION DATE: 03/25/20 PROGRESS NOTE DATE OF SERVICE: 04/11/2020 SUBJECTIVE: The patient's case was discussed with staff. She has no new complaint. OBJECTIVE: The patient is in good behavioral control. She has not been aggressive. ASSESSMENT: Dementia. PLAN: Current medicines will be maintained. Her long-term prognosis is guarded. TRANSINT:[id number] Voice Confirmation ID: [id number] DOCUMENT ID: [id number] FELICIA JOE MD at 1159 CC: [id number] DICTATION DATE: 04/11/20 1421 SCHOOL CROSSING GUARD: 04/11/20 2211 ADM IN [address] [place] [address]
--- NOTE | 2020-04-12 15:37 | NUR ---
YELLING OUT.DEMANDING.JAKE NOT REDIRECT.YELLS AT PEERS.ATIVAN 0.5MG AND HALDOL 2MG PO GIVEN.
--- NOTE | 2020-04-12 19:48 | NUR ---
RECEIVED IN DAYROOM. SITTING QUIETLY IN A RECLINER WITH PEERS AT HER SIDE. CALM COOPERATIVE WITH CARE AND ASSESSMENT. NO SIGNS OF AGGRESSION. REDIRECT AND REORIENT NEEDED. CONTINUES TO SIT CALMLY IN DAYROOM. CONTINUE PLAN OF CARE.
[2020-04-12 20:41] VITALS: BP 134/66
--- NOTE | 2020-04-13 09:00 | PN ---
PATIENT:ESTELA DODD MEDICAL RECORD: [id number] LOCATION:[facility] ADMISSION DATE: 03/25/20 PROGRESS NOTE DATE OF SERVICE: 04/12/2020 SUBJECTIVE: The patient's case was discussed with staff. She has no new complaint. OBJECTIVE: The patient is angry and irritable, but not openly aggressive. ASSESSMENT: Dementia. PLAN: Current medicines have been reviewed and will be maintained. Long-term prognosis is guarded. TRANSINT:[id number] Voice Confirmation ID: [id number] DOCUMENT ID: [id number] FELICIA JOE MD at 0900 CC: [id number] DICTATION DATE: 04/12/20 1305 CENTER MACHINE SET UP OPERATOR: 04/12/20 2130 ADM IN [id number]
--- NOTE | 2020-04-13 11:52 | NUR ---
PT SITTING IN W/C IN DAYROOM WITH PEERS. ASSESSMENT COMPLETED. PT IS [place]. PT YELLS OUT AT STAFF AND OTHERS PTS AT TIMES. REDIRECT AND REORIENT NEEDED. FALL PRECAUTIONS IN PLACE. WILL CPOC.
--- NOTE | 2020-04-13 18:57 | NUR ---
RECEIVED IN DAYROOM. MOVING ABOUT IN A WHEELCHAIR. CALM AND COOPERATIVE WITH CARE AND ASSESSMENT. NO SIGNS OF AGGRESSION. REDIRECT AND REORIENT NEEDED. CONTINUES TO MOVE ABOUT IN DAY AREA. CONTINUE PLAN OF CARE.
[2020-04-13 20:02] VITALS: BP 143/76
[2020-04-14 08:30] VITALS: BP 150/66
--- NOTE | 2020-04-14 08:45 | NUR ---
PT AWAKE AND ALERT TO PERSON ONLY. VERY [place]. ASSESSMENT COMPLETED. PRESCRIBED MEDS PROVIDED ORDERED. MED COMPLIANT. REDIRECT AND REORIENT NEEDED. FALL PRECAUTIONS IN PLACE. WILL CPOC.
--- NOTE | 2020-04-14 11:11 | PN ---
PATIENT:ESTELA DODD MEDICAL RECORD: [id number] LOCATION:[facility] ADMISSION DATE: 03/25/20 PROGRESS NOTE DATE OF SERVICE: 04/13/2020 SUBJECTIVE: The patient's case was discussed with staff. She has no new complaint. OBJECTIVE: The patient has been verbally abusive towards the staff. She has a very poor insight about her situation. ASSESSMENT: Dementia. PLAN: I am going to increase the patient's BuSpar and Klonopin slightly. Given her current behaviors, I think that is necessary. Much of this is personality driven, but it still makes her difficult to manage. TRANSINT:[id number] Voice Confirmation ID: [id number] DOCUMENT ID: [id number] FELICIA JOE MD at 1111 CC: [id number] DICTATION DATE: 04/13/20 1559 GROUND SUPPORT AGENT: 04/14/20 0256 ADM IN [facility] [address] [place] [address]
--- NOTE | 2020-04-14 18:25 | NUR ---
RECEIVED IN DAYROOM. SITTING IN a CHAIR WITH PEERS BY HER SIDE. CALM AND COOPERATIVE WITH CARE AND ASSESSMENT. NO SIGNS OF AGGRESSION. REDIRECT AND REORIENT NEEDED. CONTINUES TO SIT CALMLY IN DAYROOM. CONTINUE PLAN OF CARE.
[2020-04-14 20:20] VITALS: BP 142/70
--- NOTE | 2020-04-15 08:56 | PN ---
PATIENT:ESTELA DODD MEDICAL RECORD: [id number] LOCATION:[facility] ADMISSION DATE: 03/25/20 PROGRESS NOTE DATE OF SERVICE: 04/14/2020 SUBJECTIVE: The patient's case was discussed with staff. She has no new complaint. OBJECTIVE: The patient denies intent to harm herself or others. She is generally tolerating her medicines well. ASSESSMENT: No change in diagnoses. PLAN: The increase in the Klonopin from yesterday seems to have helped the patient's agitation without making her sedated. I will observe her on this dose for another day. TRANSINT:[id number] Voice Confirmation ID: [id number] DOCUMENT ID: [id number] FELICIA JOE MD at 0856 CC: [id number] DICTATION DATE: 04/14/20 1504 SQUIRREL MAN: 04/14/20 2150 ADM IN [place] [id number] [place] [id number]
--- NOTE | 2020-04-15 09:18 | NUR ---
Nutrition Follow-up: Diet: Regular PO intake: ~93% average x last 9 meals Last BM: 04/11/20. Wt: 158.2# (04/12/20); Admit Wt: 147# (03/25/20) Meds noted: lasix. No new labs. Recommend continue current diet. RD following.
--- NOTE | 2020-04-15 09:35 | NUR ---
PT IN DAYRROM WITH PEERS. PT IS AWAKE AND ALERT TO PERSON ONLY. CALM AND COOPERATIVE WITH ASSESSMENT. PRESCRIBED MEDS PROVIDED ORDERED. MED COMPLIANT. PT IS HYDABURG. PT CAN BE DEMANDING AND LOUD AT TIMES. REDIRECT AND REORIENT NEEDED. FALL PRECAUTIONS IN PLACE. WILL CPOC.
[2020-04-15 13:17] VITALS: BP 134/67
[2020-04-15 20:19] VITALS: BP 117/63
--- NOTE | 2020-04-16 01:20 | NUR ---
B.) PT IS ALERT AND ORIENTED TO SELF ONLY. SHE HAS POOR INSIGHT INTO HER SITUATION. SHE USES A WHEELCHAIR TO ASSIST WITH AMBULATION. SHE IS VERY STANDING ROCK AND IS OFTEN OBSERVED YELLING. AT TIMES SHE DOES LOWER HER TONE WHEN ASKED. SHE MAKES HER NEEDS KNOWN. I.) PROVIDED PM MEDICATIONS. REDIRECT OFTEN. R.) COMPLIANT WITH ALL MEDICATIONS. DIFFICULT TO REDIRECT. P.) WILL CONTINUE TO MONITOR.
[2020-04-16 09:39] VITALS: BP 141/71
--- NOTE | 2020-04-16 09:48 | NUR ---
Resident rec'd this am up in wheelchair. Patient with sad, agitated facial expressions, little eye contact. she is unable to stay in one area for any length of time..will self propel her wheelchair up to tables or furniture, sit there for a few minutes and then will leave that area and propel to another. patient yells out freq. at staff and other patients..she has a very hostile yell. will say "ma'am, ma'am" very loudly and will not stop yelling until someone addresses her needs. she is restless, aggressive, and displays intrusive behaviors. staff will attempt to address her needs and re-direct her negative behaviors with little improvement.
--- NOTE | 2020-04-16 10:18 | PN ---
PATIENT:ESTELA DODD MEDICAL RECORD: [id number] LOCATION:[facility] ADMISSION DATE: 03/25/20 PROGRESS NOTE DATE OF SERVICE: 04/15/2020 SUBJECTIVE: The patient's case was discussed with staff. She has no new complaint. OBJECTIVE: The patient is in good behavioral control. She has limited insight about her situation. She continues to yell and be disruptive. ASSESSMENT: Dementia. PLAN: The patient's current medicines have been reviewed. I am reluctant to increase them further given the possible fear of over sedation. I will watch her another day before reluctantly having to do so. TRANSINT:[id number] Voice Confirmation ID: [id number] DOCUMENT ID: [id number] FELICIA JOE MD at 1018 CC: [id number] DICTATION DATE: 04/15/20 1547 DOG DAY CARE ATTENDANT: 04/15/202013 ADM IN [facility] [address] [place] [address]
[2020-04-16] MEDS ORDERED: NORVASC10 MG PO (16:25)
[2020-04-16] MEDS ORDERED: LOPRESSOR25 MG PO (16:25)
[2020-04-16] MEDS ORDERED: ELIQUIS2.5 MG PO (16:25)
[2020-04-16] MEDS ORDERED: BUSPAR10 MG PO (16:26)
[2020-04-16] MEDS ORDERED: DESERYL PO (16:26)
[2020-04-16] MEDS ORDERED: NAMENDA5 MG PO (16:26)
[2020-04-16] MEDS ORDERED: SEROQUEL25 MG PO (16:26)
[2020-04-16] MEDS ORDERED: KLONOPIN0.5 MG PO (16:26)
[2020-04-16] MEDS ORDERED: FUROSEMIDE20 MG PO (16:26)
[2020-04-16] MEDS ORDERED: ASPIRIN81 MG PO (16:26)
[2020-04-16] MEDS ORDERED: VITAMIN D PO (16:27)
[2020-04-16] MEDS ORDERED: LEVOTHYROXINE125 MCG PO (16:27)
[2020-04-16] MEDS ORDERED: VITAMIN B-121000 MCG PO (16:27)
[2020-04-16 20:07] VITALS: BP 125/52
--- NOTE | 2020-04-17 00:10 | NUR ---
B) Patient is alert and oriented to self, yelling out at times, and demanding of staff, impatient. I) Administered scheduled medications as ordered, redirected as needed, R) Medication compliant, sleeping now in her room, P) Continue plan of care.
--- NOTE | 2020-04-17 10:47 | NUR ---
The patient is awake and as soon as she awakens she begins to yell. She was given breakfast and yelled that she didn't like any of it. She would not stand up for staff to dress her. She is d/cing today to [employer]. All paperwork, d/c order, and med list faxed to the facility. A hard copy is provided for the straddle bug driver to hand carry. Provide prescribed meds. The patient is compliant with meds. The patient is [place] and that is why she yells. Continue POC.
--- NOTE | 2020-04-17 15:30 | NUR ---
Called report to [facility].
--- NOTE | 2020-04-17 16:15 | NUR ---
The [facility] came to pick the patient up, all of her belongings provided, her clothes, her w/c, and her paperwork. She is now discharged from [facility]. She is assisted to the van by two of our staff.
--- NOTE | 2020-04-20 09:13 | PN ---
PATIENT:ESTELA DODD MEDICAL RECORD: [id number] LOCATION:[facility] ADMISSION DATE: 03/25/20 PROGRESS NOTE DATE OF SERVICE: 04/16/2020 SUBJECTIVE: The patient's case was discussed with staff. She has no new complaint. OBJECTIVE: The patient denies intent to harm herself or others. She generally tolerates her medicines well. ASSESSMENT: Dementia. PLAN: Current medicines have been reviewed and will be maintained. Long-term prognosis is guarded. I anticipate she can be transitioned out of the hospital soon. TRANSINT:[id number] Voice Confirmation ID: [id number] DOCUMENT ID: [id number] FELICIA JOE MD at 0913 CC: [id number] DICTATION DATE: 04/16/20 1624 ENGINEERING DESIGNER: 04/16/20 1827 DIS IN 04/17/20 [place] [id number] [place] [address]
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
== END 2020-04-17 16:19 | DRG 57 ==
LOC: D.PSYCH 17:55
PROVIDERS: ADMIT Psychiatry & Neurology Psychiatry; ATTEND Psychiatry & Neurology Psychiatry
DX: G30.1 Alzheimer's disease with late onset (principal); F02.81 Dementia in other diseases classified elsewhere, unspecified severity, with behavioral disturbance; I10 Essential (primary) hypertension; E78.5 Hyperlipidemia, unspecified; E03.9 Hypothyroidism, unspecified; F32.9 Major depressive disorder, single episode, unspecified; K58.1 Irritable bowel syndrome with constipation; R26.9 Unspecified abnormalities of gait and mobility; E55.9 Vitamin D deficiency, unspecified; M19.90 Unspecified osteoarthritis, unspecified site; Z86.718 Personal history of other venous thrombosis and embolism; H61.20 Impacted cerumen, unspecified ear

== ENCOUNTER → 2020-10-21 17:36 | Outpatient (CLI) | payer MEDICARE ==
[2020-09-09 19:10] VITALS: BMI 24.4
[~2020-10-21 17:36] MED LIST changes: +ASPIRIN81 MG PO; +BUSPAR10 MG PO; +DEPAKOTE SPRIN125 MG PO; +DESERYL PO; +EX-LAX15 MG; +LEVOTHYROXINE125 MCG PO; +LOPRESSOR25 MG PO; +NAMENDA10 MG PO; +SEROQUEL25 MG PO; +SYNTHROID125 MCG PO; +VITAMIN B-12500 MCG; +VITAMIN D PO
[2020-10-21 18:20] LABS: BASOPHILS 0.5 % (0-2); EOSINOPHILS 2.1 % (0-7); HEMATOCRIT 37.4 % (36.0-48.0); HEMOGLOBIN 11.9 g/dL (12-16); IMMATURE GRANULOCYTES 0.1 % (0-5); LYMPHOCYTE ABS# 3.05 10x3/uL (1.18-3.74); LYMPHOCYTES 31.9 % (15-50); MCH 28.5 pg (26.0-34.0); MCHC 31.8 g/dL (31.0-37.0); MCV 89.5 fL (80.0-100.0); MONOCYTES 7.1 % (2-11); NEUTROPHIL ABS# 5.57 10x3/uL (1.56-6.13); NEUTROPHILS 58.3 % (40-80); RBC 4.18 10x6/uL (4.00-5.40); RDW 13.5 % (11.5-14.5); WBC 9.6 10x3/uL (4.8-10.8)
[2020-10-21 18:29] LABS: PLATELET COUNT 373 10x3/uL (130-400)
[2020-10-21 18:35] LABS: ANION GAP 14.3 mmol/L (8-16); CARBON DIOXIDE 27.2 mmol/L (21.0-32.0); CREATININE - SERUM 1.5 mg/dL (0.6-1.3); POTASSIUM - SERUM 4.5 mmol/L (3.5-5.1)
== END | disposition home or self-care (01) ==
LOC: D.LABREF 17:36
PROVIDERS: ATTEND Family Medicine
DX: F98.9 Unspecified behavioral and emotional disorders with onset usually occurring in childhood and adolescence (principal)

== ENCOUNTER → 2020-11-18 16:40 | Outpatient (CLI) | payer MEDICARE ==
[2020-09-09 19:10] VITALS: BMI 24.4
[2020-11-18 17:27] LABS: BILIRUBIN NEGATIVE (NEGATIVE); KETONE NEGATIVE (NEGATIVE); NITRITE POSITIVE (NEGATIVE); UROBILINOGEN NORMAL mg/dL (< 2)
[2020-11-18 17:28] LABS: BACTERIA MANY HPF (NONE SEEN); SQUAMOUS EPITHELIAL 0-5 HPF (0-4); WHITE CELLS - URINE >50 HPF (0-4)
== END | disposition home or self-care (01) ==
LOC: D.LABREF 16:40
PROVIDERS: ATTEND Family Medicine
DX: F98.9 Unspecified behavioral and emotional disorders with onset usually occurring in childhood and adolescence (principal)

== ENCOUNTER 2020-12-10 18:20 | Inpatient (IN) | payer MEDICARE ==
[~2020-12-10] VITALS: Ht 157.5 cm; Wt 66.2 kg
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
[2020-12-10 20:00] VITALS: BP 128/74
--- NOTE | 2020-12-10 20:44 | NUR ---
PATIENT WAS GIVEN HALDOL AND ATIVAN IM @ 1930 FOR EXTREME ANXIETY, SHE WAS SCREAMING OVER AND OVER "I WANT TO GO HOME, GET ME OUT OF HERE". MINIMAL RESULTS.
--- NOTE | 2020-12-10 23:36 | NUR ---
PRN EFFECTIVE, PATIENT RESTING QUIETLY
[2020-12-10] MEDS ORDERED: FAMOTIDINE10 MG PO (23:51)
[2020-12-10] MEDS ORDERED: VITAMIN C500 M1 PO (23:51)
[2020-12-10] MEDS ORDERED: HYDRALAZINE HCL25 MG PO (23:52)
[2020-12-10] MEDS ORDERED: MULTI-DAY VITAM1 TAB PO (23:53)
[2020-12-10] MEDS ORDERED: ZINC SULFATE220 MG PO (23:55)
[2020-12-10] MEDS ORDERED: CHLORHEXIDINE473 M1 PO (23:55)
[2020-12-11 01:03] VITALS: BP 133/65; BMI 24.1
[2020-12-11 08:07] LABS: BASOPHILS 0.4 % (0-2); EOSINOPHILS 5.7 % (0-7); HEMATOCRIT 38.2 % (36.0-48.0); HEMOGLOBIN 12.1 g/dL (12-16); IMMATURE GRANULOCYTES 0.3 % (0-5); LYMPHOCYTE ABS# 3.08 10x3/uL (1.18-3.74); LYMPHOCYTES 41.7 % (15-50); MCH 28.3 pg (26.0-34.0); MCHC 31.7 g/dL (31.0-37.0); MCV 89.5 fL (80.0-100.0); MEAN PLATELET VOLUME 9.8 fL (7.4-10.4); MONOCYTES 12.9 % (2-11); NEUTROPHIL ABS# 2.88 10x3/uL (1.56-6.13); RBC 4.27 10x6/uL (4.00-5.40); RDW 14.6 % (11.5-14.5); WBC 7.4 10x3/uL (4.8-10.8)
[2020-12-11 08:08] LABS: PLATELET COUNT 237 10x3/uL (130-400)
--- NOTE | 2020-12-11 08:20 | NUR ---
PT LAYING IN BED YELLING VERY LOUDLY. STAFF ATTEMPTED SEVERAL TIMES TO REDIRECT PT. UNABEL TO REDIRECT AT THIS TIME. PT CONTS TO YELL LOUDLY "GET ME OUT OF HERE. OPEN THE DOOR." STAFF OPENED THE DOOR. STAFF ATTEMPTED TO ASSIST PT WITH A.M. ADLS. PT WAS ANXIOUS YELING "WHAT ARE YOU DOING TO ME? STOP THAT STOP THAT." PT HITTING AT STAFF AT THIS TIME. ATIVAN 0.5 MG AND HALDOL 2 MG IM ADMINISTERED PER PRN ORDER. WILL CONT TO MONITOR FOR EFFECTIVENESS.
[2020-12-11 08:30] VITALS: BP 111/54
[2020-12-11 09:03] LABS: ALBUMIN 3.2 g/dL (3.4-5.0); ANION GAP 15.3 mmol/L (8-16); BILIRUBIN - TOTAL 0.36 mg/dL (0.2-1.3); CALCIUM 8.9 mg/dL (8.5-10.1); CARBON DIOXIDE 26.9 mmol/L (21.0-32.0); CHOL - HDL RATIO 4.1 ratio (2.3-4.1); CREATININE - SERUM 1.1 mg/dL (0.6-1.3); LDL-HDL RATIO 2.7 ratio (1.5-3.5); POTASSIUM - SERUM 5.2 mmol/L (3.5-5.1); PROTEIN - SERUM 7.1 g/dL (6.4-8.2); THYROID STIMULATING HORMONE 10.22 uIU/mL (0.36-3.74)
--- NOTE | 2020-12-11 09:20 | NUR ---
PT SITTING QUIETLY AT TABLE IN DAYAREA AT THIS TIME. PRN EFFECTIVE AT THIS TIME.
[2020-12-11 09:27] VITALS: BP 111/54
--- NOTE | 2020-12-11 09:31 | NUR ---
NURSE NOTIFIED DR. MENDEZ OF PT POTASSIUM LEVEL OF 5.2 AND BUN OF 23. NEW ORDER FOR: LASIX 20 MG ONCE, ENCOURAGE FLUIDS, AND REPEAT LAB IN THE A.M. NURSE WILL ADMINISTER ONE TIME DOSE OF LASIX.
[2020-12-11 09:32] LABS: SARS-CoV-2 ANTIGEN NEGATIVE- SARS-COV-2 (NEGATIVE)
[2020-12-11 09:39] VITALS: Ht 157.5 cm; Wt 66.2 kg
--- NOTE | 2020-12-11 10:10 | NUR ---
PT SITTING IN W/C AT THIS TIME. PT IS CALM AND COOPERATIVE. CONFUSION NOTED. REDIRECT AND REORIENT NEEDED. PT IS VERY HARD TO REDIRECT AT TIMES. PT REQUIRES MAX ASSISTANCE WITH ADLS. PT IS RAM[place]. ALERT TO SELF ONLY. PT CAN NOT MAKE NEEDS KNOWN. INCONTIENT OF BOWEL AND BLADDER. AGRESSION NOTED AT TIMES. CONT TO REDIRECT. PERICARE Q 2 HR AND PRN. BED AND CHAIR ALARM IN PLACE AND ACTIVE. WILL CONT PLAN OF CARE.
--- NOTE | 2020-12-11 12:00 | NUR ---
pt screaming very loudly. staff attempted to console and redirect pts behavior. unable to do so at this time. ativan 0.5 mg and haldol 2 mg im administered per PRN order. will cont to monitor.
--- NOTE | 2020-12-11 12:01 | NUR ---
NURSE REPORTED TSH LEVELS. SYNTHROID D/C'D.
--- NOTE | 2020-12-11 13:38 | NUR ---
prn not effective at this time. pt conts to scream very loudly. unable to redirect pts behaviors.
--- NOTE | 2020-12-11 14:25 | NUR ---
IN AND OUT URINE SPECIMAN COLLECTED. STERILE TECHINQUE USED. LABELED AT BEDSIDE.
--- NOTE | 2020-12-11 14:49 | NUR ---
Bea has been having behaviors all day. She will sit and yell at the staff an/or other patients. Patients are becoming upset with her yelling. She will not redirect. Many interventions with private sitting, food, fluids have been offered to redirect her but without success. Per MD order, Ativan and Haldol given IM. Urine has also been collected using a sterile in and out cath with Kelvin Kevin RN present and Abida GARDNERT present. Specimann taken to lab.
[2020-12-11 15:29] LABS: BILIRUBIN NEGATIVE (NEGATIVE); KETONE NEGATIVE (NEGATIVE); NITRITE NEGATIVE (NEGATIVE); UROBILINOGEN NORMAL mg/dL (< 2)
--- NOTE | 2020-12-11 18:37 | NUR ---
PT CONTS TO YELL LOUDLY AND AGITATED WITH CARE. PT VERY DIFFICULT TO REDIRECT. PT CONSTANLY YELLS AND DOES NOT REDIRECT. ATIVAN 0.5 MG AND HALDOL 2 MG IM PER PRN ORDER. WILL CONT TO MONITOR.
--- NOTE | 2020-12-11 20:01 | NUR ---
PT IS ALERT AND ORIENTED TO SELF ONLY. SHE IS RECEIVED IN HER ROOM YELLING OUT AT TIMES. VERY SHISHMAREF IRA. COMPLIANT WITH ALL MEDICATIONS. ASSISTED TO BED AND COVERED WITH A WARM BLANKET. DIFFICULT TO REDIRECT. MONITOR FOR SAFETY.
[2020-12-12 08:00] VITALS: BP 111/53
--- NOTE | 2020-12-12 08:30 | NUR ---
PATIENT YELLING ALOUD, CURSING UNCONTROLLABLY. ZIPRASIDONE 10 MG ADMIN IM.
--- NOTE | 2020-12-12 08:45 | NUR ---
pt conts to be disputive to self and other peers. pt conts to scream very loudly stating "close my eyes, open my eyes, i want to go back to bed." staff attempted multiple times to redirect pt behaviors. unable to redirect pts behaviors. Geodon 10 mg IM administered per PRN order. will cont to monitor for effectiveness.
--- NOTE | 2020-12-12 08:45 | NUR ---
RESTING QUIETLY IN RECLINER. NO S/S DISTRESS.
--- NOTE | 2020-12-12 09:45 | NUR ---
pt resting with eyes closed at this time. PRN effective at this time.
--- NOTE | 2020-12-12 14:00 | NUR ---
pt sitting in chair at this time. pt is calm and not yelling out at this time. confusion noted. redirect and reorient as needed. pt is alert to self only. difficult to redirect. pt will not allow staff to do PRN pericare and oral care on dentures. pt refused to allow staff to remove and clean dentures. compliant with crushed meds. vitals and assessment at times only when resting. pt requires total assistance with adls and pericare q 2 hr and prn. total assist. bed and chair alarm in place and active. will cont plan of care.
--- NOTE | 2020-12-12 15:30 | NUR ---
PATIENT YELLING ALOUD UNCONTROLABLY. ZIPRASIDONE 10 MG ADMIN IM. ANGELIA WELL.
--- NOTE | 2020-12-12 16:00 | NUR ---
PATIENT QUIETLY RESTING IN RECLINER. NO S/S DISTRESS.
[2020-12-12 20:00] VITALS: BP 108/58
--- NOTE | 2020-12-12 21:53 | NUR ---
B)RECEIVED PATIENT SITTING IN A CHAIR IN THE HALLWAY. NO EYE CONTACT WHEN APPROACHED BY STAFF. COULD NOT TELL NURSE HER NAME. NO INSIGHT. YELLS OUT "OH" "OH" "STOP IT" "IT HURTS" "STOP IT." DOES NOT ELLABORATE. WITHDRAWN. I)ADMINISTER MEDS AND MONITOR COMPLIANCE. REDIRECT FOR YELLING OUT AND DISRUPTING THE UNIT. R)MED COMPLIANT. POOR REDIRECTION. CONTINUES TO YELL OUT. P)CONTINUE POC AND PROVIDE SAFE ENVIRONMENT.
--- NOTE | 2020-12-12 22:08 | NUR ---
CONTINUES TO YELL. UNREDIRECTABLE. PRN HALDOL AND ATIVAN IM ADMINISTERED BY Mikey MCKEON RN
[2020-12-13 08:00] VITALS: BP 113/65
--- NOTE | 2020-12-13 10:21 | NUR ---
Received patient in bed with eyes closed. Responds to verbal stimuli. Assessment completed at this time. Prescribed medications provided as ordered med compliant. Patient continues to scream out at staff. Patient is yelling "OH" "stop it" pt screaming out " it hurts" then pt denies pain at this time repeatedly. Unable to redirect patient at this time. Patient is disruptive. Patient is disturbing the whole unit. Geodon 10 mg IM administered per as needed orders. Redirect and reorient as needed. Fall precautions in place for safety. Will cpoc.
--- NOTE | 2020-12-13 17:54 | NUR ---
Patient is screaming and yelling in reclining chair by nurses station. Patient moved away from nurses station and other patients for safety. Staff member with patient at this time. Patient continues to scream and yell at staff. Patient is disrupting the whole unit at this time. Unable to redirect patient at this time. Dr. Olson notified. Ativan 0.5 mg IM and Haldol 2 mg IM given per as needed order. Will continue plan of care.
--- NOTE | 2020-12-13 19:54 | NUR ---
RECEIVED IN HALLWAY OUTSIDE OF NURSES STATION IN A RECLINING CHAIR. YELLING OUT AT TIMES. CALM AND COOPERATIVE WITH CARE AND ASSESSMENT. NO SIGNS OF AGGRESSION. REDIRECT AND REORIENT NEEDED. CONTINUES TO SIT IN HALLWAY. NOT YELLING OUT AT THIS TIME. CONTINUE PLAN OF CARE.
[2020-12-13 21:12] VITALS: BP 112/66
[2020-12-14 08:00] VITALS: BP 108/64
--- NOTE | 2020-12-14 09:51 | NUR ---
Nutrition Follow-up: Diet: Regular PO intake: ~10% average x last 9 meals (varied 0-50%) Last BM: 12/11/20 Wt: 133# (12/13/20); Admit Wt: 144.6# (12/11/20). Noted -11.6# x 2 days. Patient with inadequate energy intake, however -11.6# in [address] questions accuracy of scales/recorded weights vs fluid status? Meds noted: lasix No new labs Recommend continue Regular diet. Will add Ensure with meals. MD may consider adding appetite stimulant as medically feasible. RD will follow-up 12/16/20.
--- NOTE | 2020-12-14 16:43 | NUR ---
PATIENT EXPERIENCING ANXIETY AND PSYCHOTIC SYMPTOMS, YELLING UNCONTROLLABLY TO THE POINT THAT THE ADJOINING UNIT WAS DISTRUBED. UNABLE TO RE-DIRECT. GEODON 20 MG ADMIN IM PER ORDERS.
[2020-12-14 20:59] VITALS: BP 106/48
--- NOTE | 2020-12-14 21:10 | NUR ---
RECEIVED IN HALLWAY OUTSIDE OF NURSES STATION. CALM AND COOPERATIVE WITH CARE AND ASSESSMENT. YELLED OUT WHEN PEERS WHERE ACTING OUT BUT CALMED WHEN MOVED TO HER ROOM AT BEDTIME. NO SIGNS OF AGGRESSION. REDIRECT AND REORIENT NEEDED. RESTING QUIETLY IN BED WITH EYES CLOSED. CONTINUE PLAN OF CARE.
[2020-12-15 08:00] VITALS: BP 122/69
--- NOTE | 2020-12-15 09:11 | NUR ---
YELLING OUT.ARGUMENTIVE.WILL NOT REDIRECT.GEODON 10MG IM GIVEN.
--- NOTE | 2020-12-15 09:45 | NUR ---
GOOD RESPONSE TO GEODON.RESTING QUIETLY IN RECLINER.
--- NOTE | 2020-12-15 10:30 | NUR ---
COMPLIANT WITH STAFF AND MEDS AT PRESENT TIME.HAS SELECTIVE HEARING,AT TIMES TELLS STAFF SHE CAN'T HEAR BUT IS OBSERVED RESPONDING VERBALLY TO PEER WHO IS TALKING VERY LOW.WILL CONTINUE WITH CURRENT PLAN OF CARE,MONITOR FOR CHANGES AND SAFETY.
--- NOTE | 2020-12-15 15:49 | PN ---
PATIENT:ESTELA DODD MEDICAL RECORD: [id number] LOCATION:[facility] ADMISSION DATE: 12/10/20 PROGRESS NOTE DATE OF SERVICE: 12/14/2020 SUBJECTIVE: The patient's case was discussed with staff. She has no new complaint. OBJECTIVE: The patient is only oriented to person. She is having active hallucinations. She is yelling because there is a rat in the corner, but obviously, there is not. She is very disruptive and experiencing a great deal of psychological distress. ASSESSMENT: Dementia. PLAN: Supportive and educational interventions were made. I am going to treat the patient with anxiolytic medication and antipsychotic medication to address these symptoms. TRANSINT:[id number] Voice Confirmation ID: [id number] DOCUMENT ID: [id number] FELICIA JOE MD at 1549 CC: [id number] DICTATION DATE: 12/14/20 162 ASSISTED LIVING ADMINISTRATOR: 12/14/20 2259 ADM IN [place] [id number] [place] [address]
[2020-12-15 20:30] VITALS: BP 134/80
--- NOTE | 2020-12-15 20:56 | NUR ---
RECEIVED IN DAYROOM. SITTING IN A RECLING CHAIR WITH PEERS AT HER SIDE. CALM AND COOPERATIVE WITH CARE AND ASSESSMENT. NO SIGNS OF AGGRESSION. REDIRECT AND REORIENT NEEDED. CONTINUES TO SIT CALMLY IN DAYROOM. CONTINUE PLAN OF CARE.
[2020-12-16 08:00] VITALS: BP 105/71
--- NOTE | 2020-12-16 16:39 | NUR ---
Nutrition Re-Assessment Diet: Regular PO intake: ~85% average x last 6 meals. PO intake appears to have increased over the past couple of days. Last BM: 12/11/20 Wt: 133# (12/13/20); 144.6# (12/11/20) *Noted -11.6# x 1 week. Patient previously with inadequate PO intake for ~5 days after admit. However, -11.6# is unlikely weight loss in [address] questions accuracy of recorded weights vs. fluid status. Also, noted that patient is on lasix. Will continue to monitor PO intake and wt trend. Meds noted: megace, lasix No new chem labs Estimated nutrition needs: 9336-7008 candice (25-30 IBW), 57-68gms protein (1-1.2), 1675-2000mL fluid (or per MD) Nutrition diagnosis: Unintended weight loss r/t inadequate energy intake vs fluid status vs accuracy of recorded weights AEB -11.6# in recorded weights since admit. Nutrition goals: -PO intake =/>75% meals -Dry weight stable Recommendations/Interventions: -Will continue to honor food preferences. -Will continue to monitor PO intake and wt trend. -Offer oral nutrition supplements if PO intake trends <65% average. -RD will follow-up within 7 days.
--- NOTE | 2020-12-16 17:55 | NUR ---
PT SITTING IN CHAIR AT THIS TIME. CONFUSED NOTED. PT ALERT TO SELF ONLY. CAN NOT MAKE NEEDS KNOWN. REQUIRES ASSISTANCE WITH ADLS 2X STAFF. QUINAULT. PT DOES TALK VERY LOUD DUE TO NOT HEARING WELL. COMPLIANT WITH MEDS, VITALS AND ASSESSMENTS. PT CAN BE COMBATIVE WITH STAFF AT TIMES. PT DOES NOT REDIRECT VERY WELL. BED AND CHAIR ALARM IN PLACE. WILL CONT PLAN OF CARE.
[2020-12-16 20:00] VITALS: BP 140/64
--- NOTE | 2020-12-16 22:48 | NUR ---
RECEIVED PATIENT IN HALLWAY IN [facility], SITTING CALMLY AND FRIENDLY, SHOWED APPRECIATION WHEN GIVEN MEDICINE AND SNACK. COMPLIANT WITH MEDS. NO ADVERSE REACTION NOTED. WILL FOLLOW POC
[2020-12-17 08:00] VITALS: BP 146/74
--- NOTE | 2020-12-17 11:16 | PN ---
PATIENT:ESTELA DODD MEDICAL RECORD: [id number] LOCATION:[facility] ADMISSION DATE: 12/10/20 PROGRESS NOTE DATE OF SERVICE: 12/16/2020 SUBJECTIVE: The patient's case was discussed with staff. She has no new complaint. OBJECTIVE: The patient is in good behavioral control with limited insight about her situation. ASSESSMENT: Dementia. PLAN: Current medicines have been reviewed and will be maintained. Long-term prognosis is guarded. TRANSINT:[id number] Voice Confirmation ID: [id number] DOCUMENT ID: [id number] FELICIA JOE MD at 1116 CC: [id number] DICTATION DATE: 12/16/20 171 TOOL SALVAGE WORKER: 12/17/20 0040 ADM IN [place] [id number] [place] [address]
--- NOTE | 2020-12-17 11:16 | PN ---
PATIENT:ESTELA DODD MEDICAL RECORD: [id number] LOCATION:[facility] ADMISSION DATE: 12/10/20 PROGRESS NOTE DATE OF SERVICE: 12/15/2020 SUBJECTIVE: The patient's case was discussed with staff. She has no new complaint. OBJECTIVE: The patient is calmer today. She is not yelling nearly as much. ASSESSMENT: Dementia. PLAN: Current medicines have been reviewed and will be maintained. Her long-term prognosis is guarded. TRANSINT:[id number] Voice Confirmation ID: [id number] DOCUMENT ID: [id number] FELICIA JOE MD at 1116 CC: [id number] DICTATION DATE: 12/15/20 1721 ADMISSIONS SPECIALIST: 12/16/20 0133 ADM IN [place] [id number] [place] [address]
--- NOTE | 2020-12-17 12:44 | NUR ---
Patient was sitting at the dining room table and had just taken a larger piece of chicken and then began to cough. Her eyes watered a little. She was able to cough up and out the chicken piece with very little cough. Her axcillary temp was taken and was 98.7 degree F. and her pulse ox stable. She has no bluing of lips or nails.Her skin coloring is pink and her lungs are clear. She is yelling "leave me alone, I want to eat!" and then repeated several times until the staff returned her fork. With continue observation, she had no further episodes. Dr. Spann here and aware of the above info.
--- NOTE | 2020-12-17 14:55 | NUR ---
Rec'd patient this am lying in bed. She is A/O times 1 to person. She is non-compliant with her medications and the nursing staff gets creative in how to administer and how she takes her meds. She often sits and yells out at staff and the other patients. She will often become argumentive. She is verbally combative with staff. She is confused. She often will not direct or redirect
--- NOTE | 2020-12-17 17:15 | NUR ---
PT SITTING IN CHAIR WITH EYES OPEN. CALM AND COOPERATIVE. VERY QUINAULT. TALKS VERY LOUD. CONFUSION NOTED. NO INSIGHT NOTED. REDIRECT AND REORIENT NEEDED. REQUIRES ASSISTANCE 3X STAFF. PT IS PLESANT WITH STAFF. COMPLIANT WITH MEDS, VITALS AND ASSESSMENTS. BED AND CHAIR ALARM IN PLACE AND ACTIVE. WILL CONT PLAN OFCARE
[2020-12-17 20:00] VITALS: BP 114/55
--- NOTE | 2020-12-18 01:10 | NUR ---
B) Patient is alert and oriented to self, KARUK and yells at times, hallucinating and taking to unseen others, patient stated [facility] and 'How do I get to the [facility]' I) Administered scheduled medications as ordered, PRN Ativan 0.5 mg IM and Haldol 2 mg IM given for anxiety at 20:00, monitored for safety, redirected as needed, gave her directions to [facility] 'Go to [facility] and turn right' R) Medication compliant continued to yell out to unseen others, P) Continue plan of care.
[2020-12-18 08:00] VITALS: BP 136/70
--- NOTE | 2020-12-18 17:23 | NUR ---
PT SITTING IN CHAIR. [place]. CONFUSED. ALERT TO SELF ONLY. YELLS VERY LOUDLY AT TIMES. PT NOTED HALLUCINATING CATS. NO AGRESSION NOTED. COMPLIANT WITH MEDS, VITALS AND ASSESSMENTS. CAN NOT MAKE NEEDS KNOWN. REQUIRES 2X ASSISTANCE WITH ADLS. DIFFICULT TO REDIRECT. CHAIR AND BED ALARM IN PLACE AND ACTIVE.
[2020-12-18 20:00] VITALS: BP 100/79
--- NOTE | 2020-12-18 21:41 | NUR ---
PT IS ALERT AND ORIENTED TO SELF ONLY. RECEIVED IN BED RESTING CALMLY WITH EYES CLOSED. CALM AND COOPERATIVE WITH STAFF. SPEAKING IN A LOW TONE BUT ABLE TO RELATE THAT SHE ENJOYS HER ICE CREAM. COMPLIANT WITH ALL HS MEDICATION. REDIRECT AND REORIENT NEEDED. MONITOR FOR SAFETY.
[2020-12-19 08:58] VITALS: BP 121/46
--- NOTE | 2020-12-19 14:59 | NUR ---
Alert, confused, yells aloud with needs and will continue to yell untill needs are met. Meds admin per orders with complete med compliance noted. No aggression noted thus far this shift. Continue plan of care as outlined.
[2020-12-19 21:23] VITALS: BP 110/58
--- NOTE | 2020-12-19 23:18 | NUR ---
PT IS ALERT AND ORIENTED TO SELF. SHE DOES KNOW SHE IS IN THE HOSPITAL BUT IS UNCERTAIN WHY. SHE IS CALM AND COOPERATIVE. PLEASANT WITH STAFF. ABLE TO VOICE NEEDS AND WANTS. COMPLIANT WITH ALL MEDICATIONS. PROVIDED HS SNACK. EASY TO REDIRECT. MOD ASSIST NEEDED FOR TRANSFERS. MONITOR FOR SAFETY.
[2020-12-20 08:00] VITALS: BP 119/56
--- NOTE | 2020-12-20 13:33 | NUR ---
Rec'd patient this am lying in bed. Patient has demonstrated 2 episodes of her yelling at staff. She was redirected both times with little success. She is med compliant and takes meds crushed and in placed in food.She is A/O but very confused at times. She will holler at staff "MA'AM" and then repeat her self mutilple times until staff responds. She can be very pleasant but can change easily and become combative and verbally. She sat and particpated in some therapic music this morning.
--- NOTE | 2020-12-20 14:56 | NUR ---
PATIENT STATED THAT HER WAS HERE EARLIER TODAY. STATED, "MY WAS HERE TODAY, BUT HE TOOK OFF!"
--- NOTE | 2020-12-20 15:20 | NUR ---
SHOWER GIVEN PER PCT.
--- NOTE | 2020-12-20 15:22 | NUR ---
Patient has been intermittenling yelling out "ma'am"! multiple times at a time. She is very difficult to redirect. She has calmed some after she's had her bath.
--- NOTE | 2020-12-20 20:09 | NUR ---
RECEIVED IN BEDROOM. RESTING IN BED WITH EYES CLOSED. RESPONS TO VOICE. CALM AND COOPERATIVE WITH CARE AND ASSESSMENT. NO SIGNS OF AGGRESSION. REDIRECT AND REORIENT NEEDED. CONTINUES TO REST QUIETLY IN BED. CONTINUE PLAN OF CARE.
[2020-12-20 21:50] VITALS: BP 110/59
[2020-12-21 08:00] VITALS: BP 129/56
--- NOTE | 2020-12-21 08:00 | NUR ---
REC'D PT IN HALLWAY IN RECLINING CHAIR BY THE NURSES STATION. AWAKE AND ALERT TO PERSON ONLY. PT IS [place]. PT CAN BECOME EASILY AGITATED WITH STAFF UPON ON REDIRECTION. PRESCRIBED MEDS PROVIDED. MED COMPLIANT. REDIRECT AND REORIENT NEEDED. FALL PRECAUTIONS IN PLACE. WILL CPOC.
--- NOTE | 2020-12-21 14:40 | PN ---
PATIENT:ESTELA DODD MEDICAL RECORD: [id number] LOCATION:[facility] ADMISSION DATE: 12/10/20 PROGRESS NOTE DATE OF SERVICE: 12/17/2020 SUBJECTIVE: The patient's case was discussed with staff. She has no new complaint. OBJECTIVE: The patient is in good behavioral control with limited insight about her situation. ASSESSMENT: Dementia. PLAN: Current medicines have been reviewed. The patient is yelling much less. She is also eating and sleeping reasonably well. TRANSINT:[id number] Voice Confirmation ID: [id number] DOCUMENT ID: [id number] FELICIA JOE MD at 1440 CC: [id number] DICTATION DATE: 12/17/20 1611 HOME DEMONSTRATOR: 12/17/202007 ADM IN [facility] [address] [place] [address]
--- NOTE | 2020-12-21 20:15 | NUR ---
RECEIVED IN DAYROOM. SITTING IN A RECLINER. YELLS OUT FOR THINGS SHE WANTS. SHE IS PLEASANT AT TIMES. WILL LAUGH AND SMILE AT THINGS. CALM AND COOPERATIVE WITH CARE AND ASSESSMENT. NO SIGNS OF AGGRESSION. REDIRECT AND REORIENT NEEDED. CONTINUES TO SIT CALMLY IN RECLINER. CONTINUE PLAN OF CARE.
[2020-12-21 20:17] VITALS: BP 121/69
[2020-12-22 08:00] VITALS: BP 122/60
--- NOTE | 2020-12-22 09:35 | NUR ---
REC'D PT IN HALLWAY SITTING IN RECLINING CHAIR IN HALLWAY BY THE NURSES STATION. AWAKE AND ALERT TO PERSON ONLY. CALM AND COOPERATIVE WITH ASSESSMENT AT THIS TIME. PT HAS LITTLE INSIGHT INTO HER SITUATION. PT IS [place]. YELLS OUT WITH POOR REDIRECTION. REDIRECT AND REORIENT NEEDED. PRESCRIBED MEDICATIONS PROVIDED ORDERED. MED COMPLIANT. FALL PRECAUTIONS IN PLACE. WILL CPOC.
--- NOTE | 2020-12-22 15:20 | PN ---
PATIENT:ESTELA DODD MEDICAL RECORD: [id number] LOCATION:[facility] ADMISSION DATE: 12/10/20 PROGRESS NOTE DATE OF SERVICE: 12/21/2020 SUBJECTIVE: The patient's case was discussed with staff. She has no new complaint. OBJECTIVE: The patient is in good behavioral control with poor insight about her situation. She does tolerate her medicines well. ASSESSMENT: Dementia. PLAN: Current medicines have been reviewed. Her long-term prognosis is guarded. TRANSINT:[id number] Voice Confirmation ID: [id number] DOCUMENT ID: [id number] FELICIA JOE MD at 1520 CC: [id number] DICTATION DATE: 12/21/20 1637 SCRAP METAL COLLECTOR: 12/22/20 0040 ADM IN [facility] [id number] [place] [address]
--- NOTE | 2020-12-22 18:35 | NUR ---
PT SLIDE HERSELF UNTO THE FLOOR. SKIN TEAR NOTED TO LEFT LOWER LEG. CLEANED AND DRESSED AT THIS TIME. PT DENIES ANY PAIN OR DISCOMFORT AT THIS TIME. PT STATED " I PUT MYSELF IN THE FLOOR BECAUSE, I DO NOT LIKE THAT CHAIR." FALL PRECAUTIONS IN PLACE. WILL CPOC.
[2020-12-22 19:58] VITALS: BP 138/63
--- NOTE | 2020-12-22 20:20 | NUR ---
RECEIVED IN DAYROOM. SITTING IN A RECLINING CHAIR WITH A PEER AT HER SIDE. CALM AND COOPERATIVE WITH CARE AND ASSESSMENT. NO SIGNS OF AGGRESSION. NOT YELLING OUT. REDIRECT AND REORIENT NEEDED. CONTINUES TO SIT CALMLY IN DAYROOM. CONTINUE PLAN OF CARE.
[2020-12-23 08:00] VITALS: BP 138/64
--- NOTE | 2020-12-23 08:00 | NUR ---
REC'D PT SITTING IN RECLINING CHAIR IN HALLWAY BY THE NURSES STATION. PT YELLING OUT "IM HUNGRY, FEED US NOW" PT EDUCATED THAT BREAKFAST SHOULD ARRIVE SHORTLY AND STAFF WILL PROVIDE FOOD TO ALL PTS AT THAT TIME. ALERT TO PERSON ONLY. CALM AND COOPERATIVE WITH ASSESSMENT AT THIS TIME. PRESCRIBED MEDICATIONS PROVIDED ORDERED. MED COMPLIANT AT THIS TIME. REDIRECT AND REORIENT NEEDED. FALL PRECAUTIONS IN PLACE FOR SAFETY. WILL CPOC.
--- NOTE | 2020-12-23 09:47 | PN ---
PATIENT:ESTELA DODD MEDICAL RECORD: [id number] LOCATION:[facility] ADMISSION DATE: 12/10/20 PROGRESS NOTE DATE OF SERVICE: 12/22/2020 SUBJECTIVE: The patient's case was discussed with staff. She has no new complaint. OBJECTIVE: The patient is oriented to person only. She is confused and yells out a fair amount. She is difficult to redirect and the medication changes that were made yesterday have not had much of an opportunity to be effective. She is, however, eating and sleeping well. ASSESSMENT: Dementia. PLAN: Current medicines and therapies have been reviewed and will be maintained. Long-term prognosis is guarded. TRANSINT:[id number] Voice Confirmation ID: [id number] DOCUMENT ID: [id number] FELICIA JOE MD at 0947 CC: [id number] DICTATION DATE: 12/22/20 165 NETSUITE DEVELOPER: 12/23/20 0008 ADM IN [facility] [address] [place] [id number]
--- NOTE | 2020-12-23 11:01 | NUR ---
Nutrition Re-Assessment Diet: Regular PO intake: ~89% average x last 9 meals Last BM: 12/22/20 Wt: 140# (12/20/20); Admit Wt: 144.6# (12/11/20), 133# (12/13/20) Meds noted: megace ES, lasix No new chem labs Estimated nutrition needs: 1275-1207 candice (25-30 IBW), 57-68gms protein (1-1.2), 1425-1700mL fluid (or per MD) Nutrition diagnosis: Potential for inadequate energy intake r/t advanced age and mental status AEB h/o of poor PO intake DHS, and need for appetite stimulant at this time. Nutrition goals: -PO intake =/>75% meals -Dry weight stable DHS Recommendations/Interventions: -Continue Regular diet. Will continue to honor food preferences. -Recommend continue appetite stimulant as medically feasible. -Noted weight changes. Noted patient on lasix also. Will continue to monitor. -RD will follow-up within 7 days.
[2020-12-23 20:00] VITALS: BP 130/63
--- NOTE | 2020-12-23 21:38 | NUR ---
PT IS ALERT AND ORIENTED TO SELF ONLY. RECEIVED IN DAYROOM SOCIALIZING WITH PEERS. RELATES THE SHE IS GETTING HER RED [place] OFF THE SIDE OF THE ROAD. DIFFICULT TO REDIRECT. COMPLIANT WITH ALL MEDICATIONS. YELLS OFTEN. STATES "I WANT ICE CREAM. STOP WHAT YOUR DOING AND GET ICE CREAM. DO YOU HEAR WHAT IM SAYING TO YOU?" PROVIDED HS SNACK. PT IS RESTING CALMY IN BED WITH EYES CLOSED. MONITOR FOR SAFETY.
[2020-12-24 08:00] VITALS: BP 113/74
--- NOTE | 2020-12-24 08:24 | NUR ---
Patient has been yelling this am since she got up out of bed. She is unable to make herself clearn as to what her needs are.She has upset all other patients near her. Per MD order, Ativan IM given. Breakfast is here and she is offered fluids and foods.
--- NOTE | 2020-12-24 11:06 | NUR ---
dairy farm worker gave update on patient's condition to patient's daughter, Galina. dairy farm worker stated paperwork has been sent off to [employer]. As soon as paperwork returns patient will be ready for discharge to [facility]. No other needs voiced at this time
--- NOTE | 2020-12-24 14:15 | PN ---
PATIENT:ESTELA DODD MEDICAL RECORD: [id number] LOCATION:[facility] ADMISSION DATE: 12/10/20 PROGRESS NOTE DATE OF SERVICE: 12/23/2020 SUBJECTIVE: The patient's case was discussed with staff. She has no new complaint. OBJECTIVE: The patient is in good behavioral control, but sometimes will yell out for reasons that are unknown. ASSESSMENT: Dementia. PLAN: Current medicines have been reviewed and will be maintained. Her long-term prognosis is guarded. TRANSINT:[id number] Voice Confirmation ID: [id number] DOCUMENT ID: [id number] FELICIA JOE MD at 1415 CC: [id number] DICTATION DATE: 12/23/20 175 HOMOEOPATH: 12/24/20 0028 ADM IN [facility] [address] [place] [address]
--- NOTE | 2020-12-24 17:50 | NUR ---
PT CONTS TO YELL OUT ASKING HER SOMEONE TO COME TALK TO HER. CONFUSION NOTED. ORIENTED TO PERSON ONLY. CAN NOT MAKE NEEDS KNOWN. REQUIRES MAX ASSISTANCE WITH ADLS. COMPLIANT WITH MEDS, VITALS AND ASSESSMENTS. CHAIR AND BED ALARM IN PLACE AND ACTIVE.
[2020-12-24 20:00] VITALS: BP 133/68
--- NOTE | 2020-12-24 21:06 | NUR ---
PT IS ALERT AND ORIENTED TO SELF ONLY. SHE IS RECEIVED IN HER ROOM IN A GERICHAIR YELLING AT STAFF TO COME INTO HER ROOM. SHE STATES "ITS ME ESTELA DODD. WHO WAS SUPPOSED TO LOOK AT THIS BOAT AND GET IT RUNNING. NOONE FIXED IT AND IM PISSED!" UNABLE TO REDIRECT. PT INSISTS ON YELLING AT STAFF THEY PASS BY HER ROOM. PROVIDED PRN ATIVAN PO FOR AGITATION PER ORDERS. COMPLIANT WITH ALL HS MEDICATIONS. PROVIDED SNACK AND ASSISTED PT INTO BED. MONITOR FOR EFFECTIVENESS.
--- NOTE | 2020-12-24 21:25 | NUR ---
PT RESTING CALMLY IN BED WITH EYES CLOSED. NO SIGNS OF DISTRESS. MONITOR FOR SAFETY
[2020-12-25 08:00] VITALS: BP 160/76
--- NOTE | 2020-12-25 17:20 | NUR ---
pt sitting in chair at this time. confused. alert to self only. very [place]. pt tends to talk very loudly at times. redirect and reorient pt behavior. can not make needs known. compliant with meds, vitals and assessments. requires total assistance with adls. no aggressive behavior noted. chair alarm in place and active. will cont plan of care.
[2020-12-25 20:00] VITALS: BP 106/52
--- NOTE | 2020-12-26 04:12 | NUR ---
B)RECEIVED PATIENT SITTING IN A RECLINER IN THE HALLWAY OUTSIDE THE NURSE'S STATION. YELLS OUT FOR RAFA "COME HERE RAFA." DISRUPTIVE TO UNIT. ORIENTED TO SELF ONLY. [place]ER [place]. I)ADMINSITER MEDS AND MONITOR COMPLIANCE. REORIENT NEEDED. R)MED COMPLIANT. POOR REORIENTATION DUE TO IMPAIRED ABILITY TO RETAIN INFORMATION. CONTINUES TO HAVE EPISODES OF YELLING OUT. P)CONTINUE POC AND PROVIDE SAFE ENVIRONMENT.
[2020-12-26 08:00] VITALS: BP 154/70
[2020-12-26 20:00] VITALS: BP 113/53
--- NOTE | 2020-12-27 02:43 | NUR ---
B)RECEIVED PATIENT LYING IN BED AND YELLING. CONFUSED AND DISORIENTED. APPEARS EXTREMELY HARD OF HEARING HOWEVER SOMEONE WILL SPEAK TO HER IN A NORMAL TONE AND SHE RESPONDS BUT FOR THE MOST PART SHE REPEATS "WHAT? WHAT DID YOU SAY?' YELLS WHEN SHE WANTS SOMETHING. APPEARS TO BE HAVING AUDITORY HALLUCINATIONS THIS EVENING AEB LYING IN HER BED HAVING A CONVERSATION WITH UNSEEN OTHERS. I)ADMINISTER MEDS AND MONITOR COMPLIANCE. REDIRECT FOR YELLING OUT AND DISRUPTING THE UNIT. R)MED COMPLIANT. POOR REDIRECTION. WILL SAY "WHAT DID YOU SAY?' OR "OK" HOWEVER SOON YOU WALK OUT OF THE ROOM SHE IS YELLING AGAIN. P)CONTINUE POC AND PROVIDE SAFE ENVIRONMENT.
--- NOTE | 2020-12-27 07:15 | NUR ---
RECEIVED PATIENT SITTING IN RECLINING CHAIR IN [facility]. PATIENT IS YELLING OUT AT STAFF AT THIS TIME. PATIENT IS BEING VERY DISRUPTIVE AND CAUSING THE WHOLE UNIT TO BE DISRUPTED. HALDOL 2 MG IM GIVEN PER NEEDED ORDERS AT THIS TIME. WILL REASSESS AT LATER TIME.
[2020-12-27 07:30] VITALS: BP 147/65
--- NOTE | 2020-12-27 08:40 | NUR ---
PATIENT SITTING IN RECLINING CHAIR BY THE NURSES STATION. AWAKE AND ALERT TO SELF ONLY. ASSESSMENT COMPLETED AT THIS TIME. PRESCRIBED MEDICATIONS PROVIDED ORDERED. MED COMPLIANT. HALDOL 2MG IM EFFECTIVE AT THIS TIME. PATIENT IS HARD OF HEARING. PATIENT TENDS TO TALK VERY LOUDLY AT TIMES. REDIRECT AND REORIENT NEEDED. CHAIR ALARM IN PLACE, INTACT, AND WORKING. FALL PRECAUTIONS IN PLACE FOR SAFETY. WILL CPOC.
--- NOTE | 2020-12-27 15:40 | NUR ---
PATIENT YELLING OUT AT THIS TIME. PATIENT IS BEING VERY DISRUPTIVE. GETTING THE WHOLE UNIT VERY WORKED UP. UNABLE TO REDIRECT AT THIS TIME HALDOL 2 MG IM GIVEN PER NEEDED ORDER. WILL CPOC.
--- NOTE | 2020-12-27 19:59 | NUR ---
RECEIVED IN BEDROOM. RESTING IN BED WITH EYES CLOSED. RESPONDS TO VOICE. CALM AND COOPERATIVE WITH CARE AND ASSESSMENT. NOT YELLING OUT. NO SIGNS OF AGGRESSION. REDIRECT AND REORIENT NEEDED. CONTINUE PLAN OF CARE.
[2020-12-27 20:00] VITALS: BP 110/39
--- NOTE | 2020-12-28 01:08 | NUR ---
CONFUSED. YELLING OUT FROM BED."I DON'T LIKE FISH!" REDIERCT AND REORIENT NEEDED
--- NOTE | 2020-12-28 07:45 | NUR ---
REC'D PT SITTING IN RECLINING CHAIR BY THE NURSES STATION. PT IS AWAKE AND ALERT TO PERSON ONLY. CALM AND COOPERATIVE WITH ASSESSMENT. PRESCRIBED MEDICATIONS PROVIDED ORDERED. MED COMPLIANT. PT IS [place]. NO BEHAVIORS NOTED AT THIS TIME. REDIRECT AND REORIENT NEEDED. FALL PRECAUTIONS IN PLACE. WILL CPOC.
[2020-12-28 08:21] VITALS: BP 117/63
--- NOTE | 2020-12-28 10:03 | PN ---
PATIENT:ESTELA DODD MEDICAL RECORD: [id number] LOCATION:[facility] ADMISSION DATE: 12/10/20 PROGRESS NOTE DATE OF SERVICE: 12/24/2020 SUBJECTIVE: The patient's case was discussed with staff. She has no new complaint. OBJECTIVE: The patient is in good behavioral control with very limited insight about her situation. ASSESSMENT: Dementia. PLAN: Current medicines have been reviewed. Long-term prognosis is guarded. TRANSINT:[id number] Voice Confirmation ID: [id number] DOCUMENT ID: [id number] FELICIA JOE MD at 1003 CC: [id number] DICTATION DATE: 12/24/20 1655 DIABETIC EDUCATOR: 12/24/20 1821 ADM IN [facility] [id number] [place] [address]
[2020-12-28 20:00] VITALS: BP 145/55
--- NOTE | 2020-12-28 23:24 | NUR ---
RECEIVED IN HALLWAY. RESTING IN A RECLINER WITH PEERS AT HER SIDE. NOT YELLING OUT. CALM AND COOPERATIVE WITH CARE AND ASSESSMENT. ASSISTED TO BED. NO SIGNS OF AGGRESSION. REDIRECT AND ROEITN NEEDED. RESTING QUIETLY IN BED WITH EYES CLOSED AT THIS TIME. CONTINUE PLAN OF CARE.
--- NOTE | 2020-12-29 15:39 | NUR ---
RECLINING CHAIR IN HALLWAY BY NURSES STATION. CALM AND COOPERATIVE WITH ASSESSMENT AT THIS TIME. PRESCRIBED MEDICATIONS PROVIDED ORDERED. MED COMPLIANT. NO BEHAVIORS NOTED AT THIS TIME. REDIRECT AND REORIENT NEEDED. FALL PRECAUTIONS IN PLACE FOR SAFETY. WILL CPOC.
[2020-12-29 20:00] VITALS: BP 83/56
--- NOTE | 2020-12-30 00:44 | NUR ---
B)RECEIVED PATIENT SITTING OUTSIDE THE NURSE'S STATION. ORIENTED TO SELF ONLY. CALM AND COOPERATIVE. CURENTLY SITTING QUIETLY. I)ADMINISTER MEDS AND MONITOR COMPLIANCE. REORIENT NEEDED. R)MED COMPLIANT. POOR REORIENTATION DUE TO IMPAIRED ABILITY TO RETAIN INFORMATION. P)CONTINUE POC AND PROVIDE SAFE ENVIRONMENT.
[2020-12-30 08:19] VITALS: BP 125/67
--- NOTE | 2020-12-30 10:42 | NUR ---
Rec'd patient this am lying in bed. She is A/O times 2 to person and to situation. She is med compliant with meds crushed and placed in glucerna today. She says she likes the Glucerna. She has sat with the other patients and watched TV and participated in therapy. She is [place] and yells out to staff and the other patients and if somewone doesn't respond, she will continue to yell. She has displayed yelling behavior this am but has been calm and cooperative with care. She is most of the time directable and redirectable.
--- NOTE | 2020-12-30 15:36 | NUR ---
Nutrition Re-Assessment Diet: Regular PO intake: ~92% average x last 9 meals Last BM: 12/26/20 Wt: 146# (12/27/20); Admit Wt: 144.6# (12/11/20) Meds noted: valerio ESCOBAR, ghassan No new labs Estimated nutrition needs: 1425-1700cal (25-30kcal/kg IBW), 57-68gms protein (1-1.2gms/kg), 1425-1700mL fluid (or per MD) Nutrition diagnosis: Potential for inadequate energy intake r/t advanced age and mental status AEB h/o poor PO intake DHS, and need for appetite stimulant. Nutrition goals: -PO intake =/>75% meals -Stable dry weight Recommendations/Interventions -Recommend continue Regular diet. Will continue to honor food preferences. -RD will continue to monitor PO intake and wt trend. -RD will follow-up within 7 days.
[2020-12-30] MEDS ORDERED: NEURONTIN 300300 MG PO (15:37)
[2020-12-30] MEDS ORDERED: ZOLOFT50 MG PO (15:37)
[2020-12-30] MEDS ORDERED: KLONOPIN0.5 MG PO (15:38)
[2020-12-30] MEDS ORDERED: GEODON20 MG PO (15:38)
[2020-12-30] MEDS ORDERED: LEVOTHYROXINE150 MCG PO (15:39)
[2020-12-30] MEDS ORDERED: Megace ES [CHEMO] PO (15:40)
[2020-12-30] MEDS ORDERED: VITAMIN B-121000 MCG PO (15:40)
[2020-12-30] MEDS ORDERED: VITAMIN D PO (15:40)
[2020-12-30 20:00] VITALS: BP 119/53
--- NOTE | 2020-12-31 00:25 | NUR ---
B)RECEIVED PATIENT SITTING IN A CHAIR OUTSIDE THE NURES'S STATION. ORIENTED TO SELF ONLY. CALM AND COOPERATIVE. WATCHES OTHERS ON THE UNIT HOWEVER IS VERY [place] AND DOES NOT INTERACT UNLESS APPROACHED. I)ADMINISTER MEDS AND MONITOR COMPLIANCE. REORIENT NEEDED. R)MED COMPLIANT. POOR REORIENTATION. PT RESPONDS "WHAT? WHAT DID YOU SAY?" DOES NOT APPEAR TO COMPREHEND THE INFORMATION BEING EXPLAINED TO HER. CALM AND COOPETATIVE THIS PM. P)CONTINUE POC AND PROVIDE SAFE ENVIRONMENT.
[2020-12-31 09:17] VITALS: BP 133/70
--- NOTE | 2020-12-31 14:00 | NUR ---
SAMRA LOZADA CALLED [facility] IN REGARDS TO PT PICKUP TIME. FACILITY STATED IT WOULD BE 6 OR 6:60 BEFORE PICKUP COULD BE COMPLETED.
--- NOTE | 2020-12-31 14:16 | NUR ---
report called to [facility] at this time to HAILEE Conroy at [facility]. nurse gave update on previous behaviors. no agreesion noted. pt is calm and cooeprative. pt is confused and [place] but redirection goes very well, 2x assist with ADLS, last BM and updated vitals signs. paperwork faxed. paper copy prepared to sent with pts belongings. papercopy of medications went over and given to Dr. Spann.
--- NOTE | 2020-12-31 17:20 | NUR ---
PT EATING DINNER AT THIS TIME. PT IS CALM AND COOPERATIVE. CONFUSED AND ALERT TO SELF ONLY. REDIRECT AND REORIENT NEEDED. PT AUGUST[place] WHICH CAN LEAD TO PT YELLING OUT AT TIMES. N0 AGRESSION NOTED. COMPLIANT WITH MEDS, VITALS AND ASSESSMENTS. REQUIRES ASSISTANCE WITH ADLS. CHAIR ALARM IN PLACE AND ACTIVE. WILL CONT PLAN OF CARE.
--- NOTE | 2020-12-31 19:10 | NUR ---
pt d/c with jannet mcrae from [employer]. pt was excited to leave when explantion was given. all paperwork was faxed and copy of paperwork was sent with pt at this time. pt tolerated well.
== END 2020-12-31 18:55 | DRG 57 ==
LOC: D.PSYCH 18:20
PROVIDERS: ADMIT Psychiatry & Neurology Psychiatry; ATTEND Psychiatry & Neurology Psychiatry
DX: G30.1 Alzheimer's disease with late onset (principal); F02.81 Dementia in other diseases classified elsewhere, unspecified severity, with behavioral disturbance; I10 Essential (primary) hypertension; E03.9 Hypothyroidism, unspecified; E78.00 Pure hypercholesterolemia, unspecified; M89.49 Other hypertrophic osteoarthropathy, multiple sites; K58.9 Irritable bowel syndrome, unspecified; E55.9 Vitamin D deficiency, unspecified; R26.9 Unspecified abnormalities of gait and mobility; G47.00 Insomnia, unspecified; F41.9 Anxiety disorder, unspecified; E87.6 Hypokalemia; E86.0 Dehydration; Z86.718 Personal history of other venous thrombosis and embolism

== ENCOUNTER 2021-01-02 00:06 | Emergency (ER) | payer MEDICARE ==
[~2021-01-02] VITALS: Ht 157.5 cm; Wt 68.0 kg
[~2021-01-02 00:06] MED LIST changes: +CHLORHEXIDINE473 M1 PO; +FAMOTIDINE10 MG PO; +HYDRALAZINE HCL25 MG PO; +LEVOTHYROXINE150 MCG PO; +NEURONTIN 300300 MG PO; +VITAMIN C500 M1 PO; +ZINC SULFATE220 MG PO
[2021-01-02 00:09] VITALS: Ht 157.5 cm; Wt 68.0 kg
[2021-01-02 05:57] VITALS: BP 124/80
== END 2021-01-02 03:40 | disposition home or self-care (01) ==
LOC: D.ER 00:06
DX: S00.93XA Contusion of unspecified part of head, initial encounter (principal); W06.XXXA Fall from bed, initial encounter; Y93.9 Activity, unspecified; Y92.9 Unspecified place or not applicable; I63.9 Cerebral infarction, unspecified; I10 Essential (primary) hypertension; E78.5 Hyperlipidemia, unspecified; E03.9 Hypothyroidism, unspecified; G30.9 Alzheimer's disease, unspecified; F02.80 Dementia in other diseases classified elsewhere, unspecified severity, without behavioral disturbance, psychotic disturbance, mood disturbance, and anxiety

== ENCOUNTER → 2021-01-05 20:40 | Outpatient (CLI) | payer MEDICARE ==
[2021-01-05 20:56] LABS: BASOPHILS 0.8 % (0-2); EOSINOPHILS 2.9 % (0-7); HEMATOCRIT 33.2 % (36.0-48.0); HEMOGLOBIN 10.8 g/dL (12-16); LYMPHOCYTES 31.5 % (15-50); MCH 28.8 pg (26.0-34.0); MCHC 32.5 g/dL (31.0-37.0); MCV 88.4 fL (80.0-100.0); MEAN PLATELET VOLUME 7.8 fL (7.4-10.4); MONOCYTES 5.8 % (2-11); RBC 3.76 10x6/uL (4.00-5.40); RDW 16.2 % (11.5-14.5); WBC 10.2 10x3/uL (4.8-10.8)
[2021-01-05 21:04] LABS: PLATELET COUNT 308 10x3/uL (130-400)
[2021-01-05 21:25] LABS: ANION GAP 15.9 mmol/L (8-16); BILIRUBIN - TOTAL 0.52 mg/dL (0.2-1.3); CALCIUM 8.3 mg/dL (8.5-10.1); CARBON DIOXIDE 24.5 mmol/L (21.0-32.0); LDL-HDL RATIO 1.8 ratio (1.5-3.5); POTASSIUM - SERUM 4.4 mmol/L (3.5-5.1); PROTEIN - SERUM 6.5 g/dL (6.4-8.2); THYROID STIMULATING HORMONE 1.38 uIU/mL (0.36-3.74)
== END | disposition home or self-care (01) ==
LOC: D.LABREF 20:40
PROVIDERS: ATTEND Family Medicine
DX: E03.9 Hypothyroidism, unspecified (principal); M62.81 Muscle weakness (generalized); Z75.1 Person awaiting admission to adequate facility elsewhere

== ENCOUNTER 2021-01-12 11:03 | Emergency (ER) | payer MEDICARE ==
[~2021-01-12] VITALS: Ht 157.5 cm; Wt 65.9 kg
[2021-01-12 11:04] VITALS: BP 128/63; Ht 157.5 cm; Wt 65.9 kg
[2021-01-12 11:18] LABS: BASOPHILS 0.6 % (0-2); EOSINOPHILS 1.5 % (0-7); HEMATOCRIT 34.9 % (36.0-48.0); HEMOGLOBIN 11.1 g/dL (12-16); LYMPHOCYTES 16.9 % (15-50); MCH 28.6 pg (26.0-34.0); MCV 89.4 fL (80.0-100.0); MEAN PLATELET VOLUME 6.4 fL (7.4-10.4); MONOCYTES 5.7 % (2-11); NEUTROPHILS 75.3 % (40-80); PLATELET COUNT 454 10x3/uL (130-400); RDW 15.4 % (11.5-14.5); WBC 11.9 10x3/uL (4.8-10.8)
[2021-01-12 11:31] LABS: INR 1.32 (0.85-1.17); PROTIME 15.2 SECONDS (11.6-15.0)
[2021-01-12 11:35] LABS: CALC OSMOLALITY 281 mosm/kg (275-300); CALCIUM 8.9 mg/dL (8.5-10.1); CARBON DIOXIDE 27.1 mmol/L (21.0-32.0); CHLORIDE - SERUM 105 mmol/L (98-107); CREATININE - SERUM 1.1 mg/dL (0.6-1.3); GLUCOSE 97 mg/dL (74-106); POTASSIUM - SERUM 4.3 mmol/L (3.5-5.1); SODIUM 140 mmol/L (136-145); UREA NITROGEN 22 mg/dL (7-18); eGFR NON AFRICAN AMERICAN 50 mL/min (90-120)
[2021-01-12 11:51] LABS: ALKALINE PHOSPHATASE 64 U/L (30-120); ALT (SGPT) 17 U/L (10-68); CKMB 1.7 U/L (0.0-3.6); CREATINE KINASE 167 UL (21-215); MAGNESIUM - SERUM 2.2 mg/dL (1.8-2.4); PROTEIN - SERUM 8.1 g/dL (6.4-8.2); TROPONIN-I < 0.017 ng/mL (0.000-0.060)
[2021-01-12 12:32] LABS: BILIRUBIN NEGATIVE (NEGATIVE); KETONE NEGATIVE (NEGATIVE); NITRITE NEGATIVE (NEGATIVE); UROBILINOGEN NORMAL mg/dL (< 2)
[2021-01-12] MEDS ORDERED: ZOFRAN ODT4 MG/UDTAB PO ×2 (12:53→13:33)
[2021-01-12] MEDS ORDERED: DOXYCYCLINE HY100 M2 PO ×2 (12:53→13:33)
== END 2021-01-12 13:37 ==
LOC: D.ER 11:03
PROVIDERS: Student in an Organized Health Care Education/Training Program
DX: J06.9 Acute upper respiratory infection, unspecified (principal); R11.2 Nausea with vomiting, unspecified; G30.9 Alzheimer's disease, unspecified; F02.80 Dementia in other diseases classified elsewhere, unspecified severity, without behavioral disturbance, psychotic disturbance, mood disturbance, and anxiety; I10 Essential (primary) hypertension; E78.5 Hyperlipidemia, unspecified; E03.9 Hypothyroidism, unspecified

== ENCOUNTER 2021-01-27 16:24 | Inpatient (IN) | payer MEDICARE ==
[~2021-01-27 16:24] MED LIST changes: +DOXYCYCLINE HY100 M2 PO; +ZOFRAN ODT4 MG/UDTAB PO
--- NOTE | 2021-01-27 17:00 | NUR ---
PT ARRIVED VIA ER STAFF ON STRETCHER. ADMITTED TO THE CARE OF DR. JOE FOR ALTER MENTAL STATUS. PT WAS REPORTED TO HAVE INCREASE CONFUSION AND THREW COFFEE ON RESIDENT AT ASSISTED. PT IS CONFUSED. ALERT TO SELF ONLY. VERY [place]. VERBAL CONSENT GIVEN PER ALLYSSA GONZALEZ. NURSE CALLED TO GIVE POA PASSCODE AT THAT TIME. PT CAN NOT GIVE ANY HISTORY. PT DNR AND PAPERWORK IS ON CHART. ATIVAN 0.5 MG IM GIVEN PER DR. JOE PRN REQUEST FOR ANXIETY. CHAIR ALARM IN PLACE AND [place]. WILL CONT PLAN OF CARE.
[2021-01-27] MEDS ORDERED: PEPCID40 MG PO (17:37)
[2021-01-27] MEDS ORDERED: MULTI-DAY VITAM1 TAB PO (17:37)
[2021-01-27] MEDS ORDERED: ZOLOFT25 MG PO (17:37)
[2021-01-27 17:39] VITALS: BP 134/68; BMI 21.8
[2021-01-27 17:39] LABS: BASOPHILS 0.9 % (0-2); EOSINOPHILS 2.3 % (0-7); HEMATOCRIT 35.1 % (36.0-48.0); HEMOGLOBIN 11.7 g/dL (12-16); LYMPHOCYTES 33.8 % (15-50); MCH 29.4 pg (26.0-34.0); MCHC 33.4 g/dL (31.0-37.0); MEAN PLATELET VOLUME 6.7 fL (7.4-10.4); PLATELET COUNT 467 10x3/uL (130-400); RBC 3.99 10x6/uL (4.00-5.40); RDW 14.7 % (11.5-14.5); WBC 9.7 10x3/uL (4.8-10.8)
[2021-01-27 18:10] LABS: ALBUMIN 3.2 g/dL (3.4-5.0); ANION GAP 13.8 mmol/L (8-16); BILIRUBIN - TOTAL 0.28 mg/dL (0.2-1.3); CALCIUM 8.7 mg/dL (8.5-10.1); CARBON DIOXIDE 26.1 mmol/L (21.0-32.0); CHOL - HDL RATIO 5.1 ratio (2.3-4.1); CREATININE - SERUM 1.2 mg/dL (0.6-1.3); LDL-HDL RATIO 3.6 ratio (1.5-3.5); POTASSIUM - SERUM 3.9 mmol/L (3.5-5.1); PROTEIN - SERUM 7.9 g/dL (6.4-8.2); THYROID STIMULATING HORMONE 7.76 uIU/mL (0.36-3.74)
--- NOTE | 2021-01-27 18:50 | NUR ---
VITALS SIGNS: B/P: 134/68, P: 70, R: 18, T: 98.4 AX, 96% ON ROOM AIR.
--- NOTE | 2021-01-27 18:51 | NUR ---
PRN NOT EFFECTIVE AT THIS TIME.
[2021-01-27 20:00] VITALS: BP 142/96
[2021-01-27 22:55] LABS: SARS-CoV-2 ANTIGEN NEGATIVE- SARS-COV-2 (NEGATIVE)
--- NOTE | 2021-01-28 02:50 | NUR ---
B)RECEIVED PATIENT SITTING OUTSIDE THE NURSE'S STATION. VERY [place]. ORIENTED TO SELF ONLY. DISRUPTS THE UNIT BY YELLING AND TALKING EXTREMELY LOUD. RESTLESS AND RELATED "MASS CONFUSION." SPEECH IS DIFFICULT TO UNDERSTAND. CONTRACTURE NOTED TO THE RIGHT HAND. NO INSIGHT INTO THE REASON SHE IS HERE. I)ADMINISTER MEDS AND MONITOR COMPLIANCE. REDIRECT FOR YELLING AND DISRUPTING THE UNIT. R)MED COMPLIANT. CRUSHED. RESPONDS "OK" WHEN REDIRECTED TO NOT YELL AND TO TALK IN A NORMAL TONE OF VOICE HOWEVER DOES NOT RETAIN INFORMATION AND CONTINUES TO YELL OUT AND SPEAK VERY LOUDLY. P)CONTINUE POC AND PROVIDE SAFE ENVIRONMENT.
[2021-01-28 08:42] VITALS: BP 121/55
[2021-01-28 13:03] VITALS: Wt 60.6 kg
--- NOTE | 2021-01-28 14:37 | NUR ---
Rec'd patient this am sitting in a reclining w/c. She is sitting in the hallway. She is a/o to person only. She is med compliant and takes meds whole or crushed.She will sit and yell out "Mamman, help me"...Help me" She is not directable or redirectable. When she's ask why she is yelling she'll say "I'm not" and then she'll yell out again. She cannot participate in any activities due to her inability to focus and has a short attention span.
--- NOTE | 2021-01-28 15:01 | NUR ---
Patient continues to yell out in spike of multiple attempts of reduction. She has caused a lot of chaios in the unit and group with her yelling. Per MD orders, Ativan and Haldol IM given.
[2021-01-28 20:00] VITALS: BP 148/82
--- NOTE | 2021-01-29 02:30 | NUR ---
B) Patient is alert and oriented to self, patient very loud, yelling everything she says, patient is [place] but can hear normal voices at times, I) Administered scheduled medications as ordered, redirected as needed, monitored for safety R) Medication compliant, sleeping now quietly in her bed, P) Continue plan of care.
--- NOTE | 2021-01-29 09:45 | NUR ---
PT YELLING OUT. UNABLE TO REDIRECT PTS BEHAVIOR DUE TO PT BEING [place]. ATIVAN 0.5 MG AND HALDOL 5 MG PO. WILL REASSESS EFFECTIVENESS.
--- NOTE | 2021-01-29 13:38 | PSY ---
PATIENT NAME:ESTELA DODD MEDICAL RECORD: [id number] : 37 LOCATION:[facility] ADMISSION DATE: 01/27/21 ACCOUNT: [id number] PSYCHIATRIC EVALUATION DATE OF EVALUATION: 01/28/21 IDENTIFYING DATA: The patient is 85 years old and she is admitted to the hospital on a voluntary basis. CHIEF COMPLAINT: Agitation. HISTORY OF PRESENT ILLNESS: The patient comes to us from a local shelter. She is well known to us from multiple previous hospitalizations. The shelter reports that she has been yelling, hitting other residents and staff, and cannot be redirected. Indeed upon admission, she is screaming very loudly "help me, help me", but will not answer questions about what she needs. This is not some sort of a refusal. She is very advanced in her dementia and is obviously quite distressed. Curiously, the patient has not been discharged from here very long and this is the second time the shelter has discontinued the medicines that I sent her back to the facility on. PAST MEDICAL HISTORY: Significant for hypertension and hypothyroidism. She also has a very significant hearing loss. PAST PSYCHIATRIC HISTORY: Significant for dementia along with multiple hospitalizations here for agitation. ALLERGIES: BACLOFEN. CURRENT MEDICATIONS: Please see the admissions MAR. SOCIAL HISTORY: The patient is . She has adult children who are involved with her care. She has no history of drug or alcohol abuse and no history of trauma. MENTAL STATUS EXAMINATION: The patient is awake, very loudly yelling and is only oriented to person. She is not able to participate in formal mental status testing; however, based on knowledge of her from previous hospitalizations or simply by an inference from her current condition, she is severely impaired on multiple levels. 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 AXIS II: None. AXIS III: Hypothyroidism, hypertension. AXIS IV: Moderate stressors. AXIS V: Global assessment of functioning is 25. PLAN: At this time, the patient is admitted to the hospital secondary to agitation associated with an advanced dementing illness. For the second time, the medicines that she was discharged on have been stopped. I will restart them and monitor her condition and attempt to stabilize her from a behavioral standpoint. TRANSINT:[id number] Voice Confirmation ID: [id number] DOCUMENT ID: [id number] FELICIA JOE MD at 1338 CC: [id number] DICTATION DATE: 01/28/21 1655 PREP MANAGER: 01/28/21 1817 ADM IN [place] [id number] [place] [id number]
--- NOTE | 2021-01-29 16:01 | NUR ---
Rec'd patient this am in hallway sitting in a reclining w/c. She is a/o to person. She is med compliant and takes meds crushed and placed in food. She yells out freq. and when staff attempts to redirect her , she just states "no, I'm not!" and then will yell louder. She has been near the group today but does participate very little. She is attention seeking as she will have behaviors just to get staff to come to her or to get her something. She is not directable or redirectable.
[2021-01-29 20:00] VITALS: BP 144/69
--- NOTE | 2021-01-29 21:10 | NUR ---
PT IS ALERT AND ORIENTED TO SELF ONLY. RECEIVED IN A GERICHAIR IN THE DAYROOM. YELLING OUT OCCASIONALLY. COMPLIANT WITH ALL MEDICATIONS. EASY TO REDIRECT. RESISTANT TO REDIRECT AT TIMES. ABLE TO VOICE NEEDS AND WANTS. MONITOR FOR SAFETY.
[2021-01-30 09:11] VITALS: BP 125/64
--- NOTE | 2021-01-30 12:43 | PN ---
PATIENT:ESTELA DODD MEDICAL RECORD: [id number] LOCATION:[facility] ADMISSION DATE: 01/27/21 PROGRESS NOTE DATE OF SERVICE: 01/29/2021 SUBJECTIVE: The patient's case was discussed with staff. She has no new complaint. OBJECTIVE: The patient has been very agitated and disruptive, essentially unmanageable. ASSESSMENT: Dementia. PLAN: The patient is going to be started on Geodon to assist with her behavior problems. She will be monitored for clinical changes associated with its use. Her long-term prognosis is guarded. TRANSINT:[id number] Voice Confirmation ID: [id number] DOCUMENT ID: [id number] FELICIA JOE MD at 1243 CC: [id number] DICTATION DATE: 01/29/21 1410 SAMPLE SELECTOR: 01/29/[address] [facility] [address] [place] [address]
--- NOTE | 2021-01-30 16:07 | NUR ---
HALDOL 2MG AND ATIVAN 0.5MG IM GIVEN PER ORDERS .YELLING,SCREAMING OUT.WILL NOT REDIRECT.
--- NOTE | 2021-01-30 16:45 | NUR ---
GOOD RESPONSE TO HALDOL AND ATIVAN.IS ORIENTED TO SELF ONLY.COMPLIANT WITH MEDS.NO AGGRESSION OBSERVED.REQUIRES TOTAL CARE FOR ADL,BUT CAN FEED SELF WITH ASSIST.WILL CONTINUE WITH CURRENT PLAN OF CARE,MONITOR FOR CHANGES AND SAFETY.
[2021-01-30 20:48] VITALS: BP 106/53
--- NOTE | 2021-01-30 22:37 | NUR ---
PT IS ALERT AND ORIENTED TO SELF ONLY. POOR INSIGHT INTO HER SITUATION. SHE IS RECEIVED IN A GERICHAIR. PT IS OBSERVED SLEEPING. ABLE TO AROUSE BUT IMMEDIATELY GOES BACK TO SLEEP. COMPLIANT WITH ALL MEDICATIONS. BED ALARM ON AND WORKING. MONITOR FOR SAFEETY.
[2021-01-31 10:31] VITALS: BP 124/64
--- NOTE | 2021-01-31 14:30 | PN ---
PATIENT:ESTELA DODD MEDICAL RECORD: [id number] LOCATION:[facility] ADMISSION DATE: 01/27/21 PROGRESS NOTE DATE OF SERVICE: 01/30/2021 SUBJECTIVE: The patient's case was discussed with staff. She has no new complaint. OBJECTIVE: The patient is in good behavioral control. She does yell out intermittently, but on the whole she has improved over the past couple of days. ASSESSMENT: Dementia. PLAN: Current medicines will be maintained. TRANSINT:[id number] Voice Confirmation ID: [id number] DOCUMENT ID: [id number] FELICIA JOE MD at 1430 CC: [id number] DICTATION DATE: 01/30/21 1350 TOP CARRIER: 01/30/21 1435 ADM IN [place] [id number] [place] [id number]
--- NOTE | 2021-01-31 18:53 | NUR ---
RECEIVED THIS AM IN RECLINER IN HALLWAY AT NURSES [facility].IS ORIENTED TO SELF ONLY.COMPLIANT WITH MEDS.MEDS CRUSHED AND TAKEN IN PUDDING.NO AGGRESSION OBSERVED BUT FREQUENTLY YELLS OUT LOUD.WILL CONTINUE WITH CURRENT PLAN OF CARE,MONITOR FOR CHANGES AND SAFETY.
--- NOTE | 2021-01-31 21:19 | NUR ---
RECEIVED IN HALLWAY. SITTING IN A CHAIR WITH PEERS AT HER SIDE. YELLING OUT AT TIMES. CALM AND COOPERATIVE WITH CARE AND ASSESSMENT. NO SIGNS OF AGGRESSION. REDIRECT AND REORIENT NEEDED. CONTINUES TO SIT IN HALLWAY. YELLING OUT AT TIMES. CONTINUE PLAN OF CARE.
[2021-01-31 23:44] VITALS: BP 147/70
[2021-02-01 00:38] LABS: BILIRUBIN NEGATIVE (NEGATIVE); KETONE NEGATIVE mg/dL (< 1+); NITRITE NEGATIVE (NEGATIVE); SQUAMOUS EPITHELIAL <1 HPF (0-4); UROBILINOGEN NORMAL mg/dL (< 2); WHITE CELLS - URINE 8 HPF (0-4)
[2021-02-01 08:00] VITALS: BP 136/67
--- NOTE | 2021-02-01 08:00 | NUR ---
Received patient sitting in reclining chair by nurses station calm and cooperative with assessment at this time. Patient is awake and alert to person only. Patient yells out at times for no apparent reason. Patient is very hard of hearing. Patient has little to no insight into her situation at this time. Redirect and reorient as needed. Fall precautions in place for safety. Will continue plan of care.
--- NOTE | 2021-02-01 12:00 | NUR ---
NUTRITION FOLLOW UP: COMMENTS: Patient eating okay with an avg of 52% for last 9 meals. Patient able to feed herself per MD note. DIET: Regular Diet SUPPLEMENT: Magic cup and Chocolate Boost with meals PO INTAKE: 52% avg for last 9 meals; 66% avg for last 3 snacks WEIGHT: 01/31-133 lbs; 01/28- 135 lbs BM: x 1 on 01/28 SIG MEDS: Vit B12, Synthroid, Zinc Sulfate, MVI, Megace, Pepcid, Vit D SIG LABS: No new labs recorded since 01/27 RECOMMENDATIONS: Continue Regular Diet as tolerated Continue Mamadou Boost and Magic Cup with meals Continue Megace appetite stimulant Encourage PO intake RD to re-assess patient on 02/04
--- NOTE | 2021-02-01 12:51 | NUR ---
munitions worker was contacted by [facility] to alert other placement is needed due to patient's behaviors. [facility] stated they will call patient's daughter and alert her of this decision. munitions worker will contact daughter today to start discharge planning.
--- NOTE | 2021-02-01 13:46 | PN ---
PATIENT:ESTELA DODD MEDICAL RECORD: [id number] LOCATION:[facility] ADMISSION DATE: 01/27/21 PROGRESS NOTE DATE OF SERVICE: 01/31/2021 SUBJECTIVE: The patient's case was discussed with staff. She has no new complaint. OBJECTIVE: The patient slept 7 hours last night and ate about half of the food presented to her. She is only oriented to person. She has not received p.r.n. medications today. ASSESSMENT: Dementia. PLAN: Current medicines have been reviewed and will be maintained. TRANSINT:[id number] Voice Confirmation ID: [id number] DOCUMENT ID: [id number] FELICIA JOE MD at 1346 CC: [id number] DICTATION DATE: 01/31/21 1409 PASTER HAT LINING: 01/31/21 193 ADM IN [facility] [address] [place] [address]
[2021-02-01 20:01] VITALS: BP 131/68
--- NOTE | 2021-02-01 20:59 | NUR ---
RECEIVED IN HALLWAY. RESTING IN A RECLINER WITH PEERS AT HER SIDE. YELLING OUT CONSTANTLY. CALM AND COOPERATIVE WITH CARE AND ASSESSMENT. NO SIGNS OF AGGRESSION. REDIRECT AND REORIENT NEEDED. CONTINUES TO SIT IN DIEGO, YELLING OUT. CONTINUE PLAN OF CARE.
[2021-02-02 08:00] VITALS: BP 142/67
--- NOTE | 2021-02-02 08:39 | NUR ---
RECEIVED PATIENT SITTING IN RECLINING CHAIR IN THE HALLWAY BY NURSES STATION. ASSESSMENT COMPLETED AT THIS TIME. PATIENT CONTINUES TO YELL OUT FOR NO APPARENT REASON. PATIENT IS VERY HARD OF HEARING. PATIENT IS DISRUPTIVE AT THIS TIME. PATIENT IS CONFUSED AND HAS LITTLE TO NO INSIGHT INTO HER SITUATION AT THIS TIME. REDIRECT AND REORIENT NEEDED. FALL PRECAUTIONS IN PLACE FOR SAFETY. WILL CONTINUE PLAN OF CARE.
--- NOTE | 2021-02-02 12:42 | NUR ---
SW ATTEMPTED CALL TO PT'S DTR, RAE, AND LEFT VOICEMAIL.
--- NOTE | 2021-02-02 14:57 | PN ---
PATIENT:ESTELA DODD MEDICAL RECORD: [id number] LOCATION:[facility] ADMISSION DATE: 01/27/21 PROGRESS NOTE DATE OF SERVICE: 02/01/2021 SUBJECTIVE: The patient's case was discussed with staff. She has no new complaint. OBJECTIVE: The patient continues to yell intermittently, although the behavior is better. She is only oriented to person. She has poor insight about her situation. She is not combative. ASSESSMENT: Dementia. PLAN: Current medicines have been reviewed and will be maintained. I do believe that they are showing a positive and beneficial effect. TRANSINT:[id number] Voice Confirmation ID: [id number] DOCUMENT ID: [id number] FELICIA JOE MD at 1457 CC: [id number] DICTATION DATE: 02/01/21 1601 BOX BUILDER: 02/01/21 1610 ADM IN [place] [id number] [place] [id number]
--- NOTE | 2021-02-02 16:07 | NUR ---
PT IS YELLING OUT AND DISRUPTING THE UNIT AT THIS TIME. UNABLE TO REDIRECT AT THIS TIME. ATIVAN 0.5MG IM NAD HALDOL 2MG IM GIVEN PER PRN ORDER.
[2021-02-02 20:00] VITALS: BP 127/73
--- NOTE | 2021-02-02 20:14 | NUR ---
REECIVED IN DAYROOM. SITTING AT TABLE WITH PEERS AT HER SIDE. CALM AND COOPERATIVE WITH CARE AND ASSESSMENT. NO SIGNS OF AGGRESSION. REDIRECT AND REORIENT NEEDED. CONTINUES TO SIT CALMLY IN DAYROOM. CONTINUE PLAN OF CARE.
[2021-02-03 08:33] VITALS: BP 140/68
--- NOTE | 2021-02-03 13:17 | NUR ---
RECEIVED THIS AM SITTING UP IN RECLINER ,TRANSFERED TO WHEELCHAIR POST SHOWER.IS ORIENTED TO SELF ONLY.IS COMPLIANT WITH MEDS.YELLS OUT LOUD FREQUENTLY.SAYS SHE CAN'T HEAR WELL BUT HAS BEEN OBSERVED HEARING VERY WELL FROM A DISTANCE.IS TOTAL LIFT,UNABLE TO STAND ALONE.WILL CONTINUE WITH CURRENT PLAN OF CARE,MONITOR FOR CHANGES AND SAFETY.
[2021-02-03] MEDS ORDERED: SYNTHROID175 MCG PO (16:23)
[2021-02-03] MEDS ORDERED: Megace ES [CHEMO] PO (16:23)
[2021-02-03] MEDS ORDERED: GEODON20 MG PO (16:23)
[2021-02-03] MEDS ORDERED: VITAMIN B-12500 MCG PO (16:24)
--- NOTE | 2021-02-03 16:59 | PN ---
PATIENT:ESTELA DODD MEDICAL RECORD: [id number] LOCATION:[facility] ADMISSION DATE: 01/27/21 PROGRESS NOTE DATE OF SERVICE: 02/03/2021 SUBJECTIVE: The patient's case was discussed with staff. She has no new complaint. OBJECTIVE: The patient is in good behavioral control with limited insight about her situation. She is tolerating her medicines well. ASSESSMENT: Dementia. PLAN: The patient will be transitioned out of the hospital tomorrow. Follow up will be with her primary care retirement physician. TRANSINT:[id number] Voice Confirmation ID: [id number] DOCUMENT ID: [id number] FELICIA JOE MD at 1659 CC: [id number] DICTATION DATE: 02/03/21 1619 LOSS CONTROL TECHNICIAN: 02/03/21 1627 ADM IN [facility] [address] [place] [address]
[2021-02-03 20:00] VITALS: BP 147/70
--- NOTE | 2021-02-03 22:00 | NUR ---
PT IS ALERT AND ORIENTED TO SELF ONLY. RECEIVED IN THE HALLWAY OUTSIDE THE NURSES STATION [facility]. YELLS OUT AT TIMES. COMPLIANT WITH ALL MEDICATIONS. EASY TO REDIRECT. REQUIRES FREQUENT REDIRECTION. BED ALARM ON AND WORKING. MONITOR FOR SAFETY.
[2021-02-04 10:16] VITALS: BP 127/64
--- NOTE | 2021-02-04 12:07 | NUR ---
venetian blind worker spoke with patient's daughter Galina to discuss discharge planning needs and hospice referral. Galina stated that she is glad [facility] accepted patient and appreciates the hospice conversation. Galina decided to go with [facility] as first choice of hospice. venetian blind worker will send referral and let them know to follow-up at [facility] and rehab. Patient will discharge to [facility] tomorrow afternoon. No other needs were voiced at this time.
--- NOTE | 2021-02-04 13:26 | NUR ---
Nutrition Reassessment/Follow-up: Overall PO intake improving. Diet: Regular with Magic Cup, Boost TID PO intake: 61% avg x 9 meals (02/01-02/03) Wt: 133# (01/31); 135# (01/27) No new labs Meds noted: vit B12, vit D, zinc sulfate, Megace, Lasix, Pepcid Nutrition Dx: -Inadequate energy intake R/T poor oral intake AEB poor PO intake reported. -Improving Nutrition Goals: -PO intake >=75% avg of meals/snacks. -Stable dry wt. Nutrition Intervention: -Nutrition needs unchanged since initial assessment. -Encourage PO intake and honor food preferences. -Continue nutrition supplements as tolerated. -Continue Megace as medically feasible. -Monitor wt; noted 2# wt loss since admit. -RD will follow up within 5-7 days.
--- NOTE | 2021-02-04 14:25 | NUR ---
RECEIVED THIS AM IN WHEELHAIR AT NURSES STATION.IS ORIENTED TO SELF ONLY,VERY CONFUSED.YELLS OUT LOUD AT TIMES AND DIFFICULT TO REDIRECT AT TIMES.IS INCONTINENT OF BOWEL AND BLADDER.WILL CONTINUE WITH CURRENT PLAN OF CARE,MONITOR FOR CHANGES AND SAFETY.COMPLIANT WITH MEDS,MEDS CRUSHED AND TAKEN IN PUDDING.
[2021-02-04 20:00] VITALS: BP 152/68
--- NOTE | 2021-02-04 22:43 | NUR ---
PT IS ALERT AND ORIENTED TO SELF ONLY. RECEIVED IN THE HALLWAY OUTSIDE THE NURSES STATION. YELLING OUT AT TIMES. COOPERATIVE WITH STAFF. COMPLIANT WITH ALL MEDICATIONS. REQUIRES CONSTANT REDIRECTION. BED ALARM ON AND WORKING. MONITOR FOR SAFETY.
--- NOTE | 2021-02-05 10:00 | NUR ---
Alert, yells aloud with needs but can usually be re-directed by addressing that need. Meds admin per orders with complete med compliance noted. No adverse reaction to meds. Scheduled for discharge this shift. No aggression noted.
--- NOTE | 2021-02-05 10:59 | NUR ---
NURSE CALLED REPORT TO ISRAEL AT [facility] AT THIS TIME. NURSE GAVE UPDATE ON BEHAVIORS AT THIS TIME. CODE STATUS, BEHAVIORS, MED COMPLIANT, REQUIRES 2X ASSISTANCE. ALL PAPERWORK FAXED. PAPER COPY SENT WELL.
--- NOTE | 2021-02-05 12:55 | NUR ---
pt tolerated d/c well. pt was in a good mood. all personal belongings sent with pt at this time. all paperwork sent with pt. 2x assistance to transfer pt into w/c.
[2021-02-05 13:37] VITALS: BP 120/77
== END 2021-02-05 13:45 | DRG 56 ==
LOC: D.ER 16:24 → EDSTATUS 16:31 → D.PSYCH 16:57
PROVIDERS: ADMIT Psychiatry & Neurology Psychiatry; ATTEND Psychiatry & Neurology Psychiatry
DX: G30.1 Alzheimer's disease with late onset (principal); I26.99 Other pulmonary embolism without acute cor pulmonale; F02.81 Dementia in other diseases classified elsewhere, unspecified severity, with behavioral disturbance; I10 Essential (primary) hypertension; E03.9 Hypothyroidism, unspecified; D64.9 Anemia, unspecified; R26.9 Unspecified abnormalities of gait and mobility; E55.9 Vitamin D deficiency, unspecified; K21.9 Gastro-esophageal reflux disease without esophagitis; Z79.01 Long term (current) use of anticoagulants